=== PATIENT | female | born 1945 | race Caucasian/White ===

== ENCOUNTER 2017-06-23 11:57 | Emergency (ER) | payer OTHER ==
[2017-06-23 12:04] VITALS: BP 164/84; TEMP 97.9; BMI 25.0
--- NOTE | 2017-06-23 12:29 | ED.PDOC ---
General ED Provider: Dr. BRIAN GÓMEZ Chief Complaint: Bite Stated Complaint: Noticed a swollen, erythematous, tender area on right inner thigh yesterday. No other symptoms. Time Seen by Physician: 12:25 Mode of Arrival: Walk-In Information Source: Patient Exam Limitations: No limitations Primary Care Provider: FAISAL ALVARADO Nursing and Triage Documentation Reviewed and Agree: Yes Skin Complaint Exam - Skin/Soft Tissue Complaint/Exam Onset/Duration: 1 day Symptoms Are: Still present Timing: Constant Initial Severity: Moderate Current Severity: Moderate Location: right inner thigh Character: Reports: Redness, Swelling, Painful Aggravating: Reports: Touch Alleviating: Reports: None Related Surgical History: Reports: None Recent Exposure to Others w/Similar Symptoms: No Skin Findings: Present: Erythema, Other (central raised area without palpable FB ) Joint Tenderness Present: No Differential Diagnoses: Cellulitis Review of Systems - Review Of Systems Constitutional: Reports: No symptoms Respiratory: Reports: No symptoms Cardiac: Reports: No symptoms Musculoskeletal: Reports: No symptoms Skin: Reports: Other (erythema and tenderness at chief complaint site) Neurological: Reports: No symptoms All Other Systems: Reviewed and Negative Past Medical History - Past Medical History Previously Healthy: Yes Endocrine: Reports: Dyslipidemia Cardiovascular: Reports: None, Hypertension Respiratory: Reports: None Hematological: Reports: None Gastrointestinal: Reports: None, Diverticulitis Genitourinary: Reports: None Neuro/Psych: Reports: None Musculoskeletal: Reports: None Cancer: Reports: None Last Menstrual Period: N/A - Surgical History General Surgical History: Reports: Cholecystectomy - Family History Family History: Reports: None - Social History Smoking Status: Never smoker Hx Substance Use: No Alcohol Screening: None Lives: Alone - Immunizations Tetanus Shot up to Date: No Influenza Vaccine within 12 Months: No Pneumococcal Vaccine up to Date: No Physical Exam - Physical Exam Appearance: Well-appearing, No pain distress, Well-nourished Respiratory: Airway patent, Breath sounds clear, Breath sounds equal, Respirations nonlabored Cardiovascular: RRR, Pulses normal, No rub, No murmur Skin: Warm (local erythema approx 4 cm diam, with central raised area approx 1 cm on right inner thigh closer to knee than hip. No palpable FB. No streaking.) , Dry Neurological: Sensation intact, Motor intact, Reflexes intact, Cranial nerves intact, Alert, Oriented Psychiatric: Affect appropriate, Mood appropriate Critical Care Note - Critical Care Note Total Time (mins): 0 Course - Course Vital Signs: Temp Pulse Resp BP Pulse Ox 06/23/17 11:57 97.9 F 52 L 20 164/84 H 97 Departure - Departure Time of Disposition: 12:36 Disposition: HOME SELF-CARE Discharge Problem: Cellulitis of right thigh Instructions: Cellulitis (ED) Condition: Good Pt referred to PMD for follow-up: No (see PCP if no better in 3 days) Allergies/Adverse Reactions: Allergies codeine Adverse Reaction (Verified 06/23/17 12:03) Latex, Natural Rubber Adverse Reaction (Verified 06/23/17 12:03) Home Medications: Ambulatory Orders Citalopram Hydrobromide [Citalopram HBr] 40 mg PO DAILY 03/22/15 Lorazepam [Ativan] 1 - 2 mg PO BEDTIME 03/22/15 Propranolol HCl [Inderal LA] 160 mg PO DAILY 03/22/15 Simvastatin [Zocor] 40 mg PO BEDTIME 03/22/15 Sumatriptan Succinate [Imitrex] 50 mg PO PRN PRN 03/22/15 Amoxicillin/Potassium Clav [Augmentin 875-125 mg Tab] 1 tab PO Q12HR #20 tablet 06/23/17 Loratadine [Claritin] 10 mg PO DAILY 06/23/17
== END 2017-06-23 12:43 | disposition home or self-care (01) ==
LOC: ED 11:57
DX: L03.115 Cellulitis of right lower limb (principal)
CPT/HCPCS: 99282

== ENCOUNTER 2018-12-19 05:45 | Emergency (ER) | payer OTHER ==
[2018-12-19 05:57] VITALS: BP 178/109; TEMP 97.4; BMI 25.6
[2018-12-19] MEDS ORDERED: MORPHINE 2 MG/ML SYRINGE IVP STA (06:18)
[2018-12-19] MEDS ORDERED: ZOFRAN 4 MG/2 ML IVP STA (06:19)
--- NOTE | 2018-12-19 06:23 | ED.PDOC ---
General Stated Complaint: my back hurts every 12 sec Time Seen by Physician: 05:50 Mode of Arrival: Walk-In Information Source: Patient Exam Limitations: No limitations Nursing and Triage Documentation Reviewed and Agree: Yes Does patient meet sepsis criteria?: No System Inflammatory Response Syndrome: Not Applicable <LORETTADoloresEZRA MENDIOLA Last Filed: 12/19/18 06:28> <MARIAGONSALOEZRA Last Filed: 12/19/18 10:23> ED Provider: Dr. EZRA PEREYRA Chief Complaint: Back Pain Primary Care Provider: FAISAL ALVARADO Sepsis Protocol: For patient's 13 years and over: Temp is 96.8 and below OR 101 and greater Pulse >90 BPM Resp >20/minute Acutely Altered Mental Status Are patient's symptoms suggestive of a new infection, such as: -Pneumonia -Skin, Soft Tissue -Endocarditis -UTI -Bone, Joint Infection -Implantable Device -Acute Abdominal Infection -Wound Infection -Meningitis -Blood Stream Catheter Infection -Unknown Musculoskeletal Complaint Exam - Back Pain Complaint/Exam Mechanism of Injury: Reports: No known trauma Onset/Duration: several hours Symptoms Are: Resolved Timing: Intermittent Episodes Lasting: Seconds Initial Severity: Mild Current Severity: Moderate Location: Reports: Discrete Character: Reports: Sharp, Spasmodic, Burning Aggravating: Reports: None Alleviating: Reports: None Associated Signs and Symptoms: Denies: Swelling, Redness, Bruising, Fever, Weakness, Numbness, Tingling, Abdominal pain, Flank pain, Bladder incontinence, Bowel incontinence, Weight loss, Pain with weight bearing Epidural Abcess Risk Factors: Reports: None Focal Tenderness: No Paraspinal Muscle Tenderness: No Paraspinal Muscle Spasm: No Scoliosis: No Lordosis: No Kyphosis: No SLR Test: Right Negative, Left Negative Hip Motion Testing Pain: Right Negative, Left Negative Focal Weakness: Present: None Focal Sensory Loss: Present: None Gait: Present: Normal Differential Diagnoses: Herniated Disk, Strain, Sprain <LORETTAKRISTIEZRA Last Filed: 12/19/18 06:28> Review of Systems - Review Of Systems Constitutional: Reports: No symptoms Eyes: Reports: No symptoms Ears, Nose, Mouth, Throat: Reports: No symptoms Respiratory: Reports: No symptoms Cardiac: Reports: No symptoms GI: Reports: No symptoms : Reports: No symptoms Musculoskeletal: Reports: Back pain Skin: Reports: No symptoms Neurological: Reports: No symptoms Endocrine: Reports: No symptoms Hematologic/Lymphatic: Reports: No symptoms All Other Systems: Reviewed and Negative <EZRA POLLARD Last Filed: 12/19/18 06:28> Past Medical History - Past Medical History Previously Healthy: Yes Endocrine: Reports: Dyslipidemia Cardiovascular: Reports: None, Hypertension Respiratory: Reports: None Hematological: Reports: None Gastrointestinal: Reports: None, Diverticulitis Genitourinary: Reports: None Neuro/Psych: Reports: None Musculoskeletal: Reports: None Cancer: Reports: None Last Menstrual Period: UNKNOWN - Surgical History General Surgical History: Reports: Cholecystectomy - Family History Family History: Reports: None - Social History Smoking Status: Never smoker Hx Substance Use: No Alcohol Screening: None - Immunizations Tetanus Shot up to Date: Yes (UNKNOWN) Influenza Vaccine within 12 Months: No Pneumococcal Vaccine up to Date: No <EZRA POLLARD Last Filed: 12/19/18 06:28> Physical Exam - Physical Exam Appearance: Well-appearing Pain Distress: Moderate Eyes: JENNYFER, EOMI, Conjunctiva clear ENT: Ears normal, Nose normal, Oropharynx normal Neck: Supple Respiratory: Airway patent, Breath sounds clear, Breath sounds equal, Respirations nonlabored Cardiovascular: RRR, Pulses normal, No rub, No murmur GI/: Soft, Nontender, No masses, Bowel sounds normal, No Organomegaly Musculoskeletal: Normal strength, ROM intact, No edema, No calf tenderness Skin: Warm, Dry, Normal color Neurological: Sensation intact, Motor intact, Reflexes intact, Cranial nerves intact, Alert, Oriented Psychiatric: Affect appropriate, Mood appropriate <EZRA POLLARD Last Filed: 12/19/18 06:28> Procedures - Additional Procedures Additional Procedures: Other (OMT/OMM Rt upper thoracic region of muscle spasm) <EZRA PEREYRA Last Filed: 12/19/18 10:23> Physician Notification - Case Discussed Physician Notified: dr pereyra Time of Notification: 07:00 <EZRA POLLARD Last Filed: 12/19/18 06:28> Critical Care Note - Critical Care Note Total Time (mins): 60 <EZRA PEREYRA Last Filed: 12/19/18 10:23> Course - Course Hematology/Chemistry: 12/19/18 06:30 12/19/18 06:30 <EZRA PEREYRA Filed: 12/19/18 10:23> - Course Orders, Labs, Meds: Lab Review 12/19/18 12/19/18 12/19/18 06:30 06:30 06:30 WBC 5.35 RBC 4.00 L Hgb 12.9 Hct 37.5 MCV 93.8 MCH 32.3 H MCHC 34.4 RDW Coeff of Dimas 12.8 Plt Count 151 Immature Gran % (Auto) 0.4 Neut % (Auto) 56.7 Lymph % (Auto) 34.0 [place] % (Auto) 6.2 Eos % (Auto) 2.1 Baso % (Auto) 0.6 Immature Gran # (Auto) 0.0 Neut # (Auto) 3.0 Lymph # (Auto) 1.8 [place] # (Auto) 0.3 L Eos # (Auto) 0.1 Baso # (Auto) 0.0 Sodium 140.4 Potassium 3.84 Chloride 108.2 H Carbon Dioxide 23.4 Anion Gap 12.64 BUN 9.9 Creatinine 0.53 L Estimated GFR (MDRD) 113.00 BUN/Creatinine Ratio 18.67 Glucose 101.7 Calcium 9.21 Total Bilirubin 0.56 AST 22.3 ALT 14.8 Alkaline Phosphatase 66.4 Total Creatine Kinase 30.1 Troponin I < 0.012 Total Protein 6.99 Albumin 4.10 Globulin 2.89 Albumin/Globulin Ratio 1.41 Amylase 67.6 Lipase 75.4 Orders Category Date Time Status EKG-(ED ONLY) Stat CARDIO 12/19/18 06:17 Completed NPO REMINDER: IMAGING ONCE CARE 12/19/18 06:20 Completed ED LOGGING SUPERVISOR APPLIED .ONCE EMERGENCY 12/19/18 06:17 Active ED IV/MEDIPORT/POWERPORT .ONCE EMERGENCY 12/19/18 06:17 Active AMYLASE Stat LAB 12/19/18 06:30 Completed CBC W/ AUTO DIFF Stat LAB 12/19/18 06:30 Completed COMPREHENSIVE METABOLIC PANEL Stat LAB 12/19/18 06:30 Completed CREATINE KINASE Stat LAB 12/19/18 06:30 Completed LIPASE Stat LAB 12/19/18 06:30 Completed TROPONIN I Stat LAB 12/19/18 06:30 Completed URINALYSIS C & S IF INDICATED Stat LAB 12/19/18 06:17 Ordered 0.9 % Sodium Chloride [Saline Flush] MEDS 12/19/18 06:17 Active 1 syr IVF PRN PRN Ketorolac Tromethamine [Toradol] MEDS 12/19/18 08:19 Discontinued 30 mg IVP ONCE STA Morphine Sulfate [Morphine 2 mg/ml Syringe] MEDS 12/19/18 06:18 Discontinued 2 mg IVP ONCE STA Ondansetron HCl/Pf [Zofran 4 mg/2 ml] MEDS 12/19/18 06:19 Discontinued 4 [address] IVP ONCE STA CT ABDOMEN/PELVIS W CONTRAST Stat RADS 12/19/18 06:[address] CHEST PE PROTOCOL Stat RADS 12/19/18 06:19 Completed Medications Generic Name Dose Route Start Last Admin Trade Name Freq PRN Reason Stop Dose Admin Sodium Chloride 1 syr 12/19/18 06:17 12/19/18 06:37 Saline Flush IVF 1 syr PRN PRN Administration To flush IV Discontinued Medications Generic Name Dose Route Start Last Admin Trade Name Freq PRN Reason Stop Dose Admin Ketorolac Tromethamine 30 mg 12/19/18 08:19 12/19/18 08:27 Toradol IVP 12/19/18 08:20 30 mg ONCE STA Administration Morphine Sulfate 2 mg 12/19/18 06:18 12/19/18 06:37 Morphine 2 Mg/Ml Syringe IVP 12/19/18 06:19 2 mg ONCE STA Administration Ondansetron HCl 4 mg 12/19/18 06:19 12/19/18 06:37 Zofran 4 Mg/2 Ml IVP 12/19/18 06:20 4 mg ONCE STA Administration Vital Signs: Temp Pulse Resp BP Pulse Ox 12/19/18 05:46 97.4 F L 58 L 16 178/109 H 98 Departure <EZRA POLLARD - Last Filed: 12/19/18 06:28> - Departure Time of Disposition: 10:10 Pt referred to PMD for follow-up: Yes IPMP verified?: No Disposition Discussed With: Patient <EZRA PEREYRA - Last Filed: 12/19/18 10:23> - Departure Disposition: HOME SELF-CARE Discharge Problem: Right-sided chest wall pain, Spasm of thoracic back muscle Instructions: Arthralgia (ED), Back Pain (ED), Muscle Spasm (ED) Condition: Good Additional Instructions: Exercise Warm moist heat to site of discomfort Meds as directed, Tramadol prn Allergies/Adverse Reactions: Allergies codeine Adverse Reaction (Verified 12/19/18 05:55) Latex, Natural Rubber Adverse Reaction (Verified 12/19/18 05:55) Home Medications: Ambulatory Orders Citalopram Hydrobromide [Citalopram HBr] 40 mg PO DAILY 03/22/15 Lorazepam [Ativan] 1 mg PO BEDTIME 03/22/15 Propranolol HCl [Inderal LA] 160 mg PO DAILY 03/22/15 Simvastatin [Zocor] 40 mg PO BEDTIME 03/22/15 Sumatriptan Succinate [Imitrex] 50 mg PO PRN PRN 03/22/15 Loratadine [Claritin] 10 mg PO DAILY 06/23/17 Butalb/Acetaminophen/Caffeine [Apenvx-Vmplsbgc-Ffgy 50-325-40] 1 each PO TID PRN 12/19/18 Gluc Bo/Chondro Bo A/Vit C/Mn [Glucosamine Chondroitin Tab] 1 each PO DAILY 05/02 Hyoscyamine Sulfate 0.125 mg SL Q4H PRN 12/19/18 Mesalamine 2 tab PO DAILY 12/19/18 Omeprazole 20 mg PO DAILY 12/19/18 Timolol Maleate 0.5% [Timoptic 0.5% Opth] 1 drop OP BID 12/19/18 Tramadol HCl 50 mg PO Q4H PRN 12/19/18 <EZRA POLLARD - Last Filed: 12/19/18 06:28> <EZRA PEREYRA - Last Filed: 12/19/18 10:23> Additional Information: 0900Evaluated patient. Lab and imaging reviewed Pos tenderness at Rt upper-mid thoracic-periscapular region. Tx with counterstrain OMM with lessening of muscle spasm and reduction of pain Toradol administered @ 0940 patient eval and totally asymptomatic of pain . (EZRA PEREYRA)
[2018-12-19] MEDS ORDERED: TORADOL IVP STA (08:19)
--- NOTE | 2018-12-19 08:43 | CT ---
EXAM: CTA CHEST (PE PROTOCOL) HISTORY: Chest pain TECHNIQUE: CTA chest with intravenous contrast. Multiplanar images were provided with 3-D reconstru ctions. 100 mL Omnipaque. COMPARISON: None FINDINGS: No pulmonary arterial filling defect. There is mild atherosclerotic disease. Prominent aortic calib er although no rubina aneurysm dilatation. Tubular ascending measured at 3.4 cm and the upper descend ing at 2.9 cm. Normal heart size. No pericardial effusion. Chronic-appearing lung changes with no vascular congestion, central interstitial edema or pleural flu id. No consolidated pneumonia or pneumothorax. There is a 3 mm noncalcified nodule in the right upp er lobe. Refer to [facility]well images. A few calcified granulomas are seen within the lungs. The bones reveal scoliosis and degenerative changes of the spine. IMPRESSION: 1. No pulmonary arterial thromboembolism. 2. No consolidated pneumonia. 3. Minimal atherosclerosis. Prominent aortic caliber without rubina aneurysmal dimensions. 4. Small 3 mm noncalcified nodule right upper lobe. The Fleischner Society pulmonary nodule recomme ndations for this finding include: No follow-up for low risk patients. Optional follow-up for high- risk patient is in 12 months. A few calcified granulomas are also noted within the lungs.
--- NOTE | 2018-12-19 08:47 | CT ---
EXAM: CT abdomen pelvis with contrast HISTORY: Abdominal pain COMPARISON: Same day CT chest with prior MRI abdomen 07/03/[address] abdomen studi es TECHNIQUE: Serial axial images of the abdomen pelvis were performed after 100 mL is of Omnipaque IV contrast was administered. These were obtained from the lung bases through the inferior pelvis. FINDINGS: The lung bases are better evaluated on same day CT chest. There is a small hiatal hernia. The liver is unremarkable. The gallbladder has been resected. The adrenal glands and kidneys are normal. The spleen demonstrates a stable round low attenuation lesion s the largest in the lateral mid spleen measures 1.5 cm which is not significantly changed since 2016 . The pancreas is unremarkable. Stomach is minimally distended. Small bowel in the the abdomen pelvis is unremarkable. There is mild thickening and questionable marie und-glass in the distal sigmoid colon as seen on image 55. With few diverticuli. The remaining colo n is unremarkable. The appendix is normal. The antrum and pelvis demonstrate no free air, free flui d or lymphadenopathy. There is reverse S-shaped scoliosis of the lumbar spine with no acute compress ion fracture or subluxation. IMPRESSION: 1. Minimal thickening of the distal sigmoid colon with questionable mild hazy ground-glass that may suggest sigmoid diverticulitis, but underlying mass cannot be excluded. 2. No change in low attenuation splenic lesions most consistent with cysts. 3. Multilevel degenerative disease and stable scoliosis.
== END 2018-12-19 10:59 | disposition home or self-care (01) ==
LOC: ED 05:45
DX: R07.89 Other chest pain (principal); M62.830 Muscle spasm of back; E78.5 Hyperlipidemia, unspecified; I10 Essential (primary) hypertension; M54.6 Pain in thoracic spine; Z87.19 Personal history of other diseases of the digestive system; Z79.899 Other long term (current) drug therapy
CPT/HCPCS: 36415; 80053; 81001; 82150; 82550; 83690; 84484; 85025; 93005; 93010; 96374; 96375; 99283

== ENCOUNTER 2019-07-27 16:43 | Inpatient (IN) ==
[2019-07-27] MEDS ORDERED: TRANDATE IVP STA (17:09)
--- NOTE | 2019-07-27 18:11 | CT ---
Exam: CT of the brain without intravenous contrast. Comparison: 03/22/2015. Reason for exam: Elevated blood pressure FINDINGS: No acute intracranial hemorrhage, mass effect, ventricular dilatation, or territorial infa rction. Parenchymal changes seen consistent with chronic microvascular disease. No depressed calvar ial fracture is seen. Impression: No acute intracranial findings. Parenchymal change consistent with chronic microvascular disease
--- NOTE | 2019-07-27 18:18 | CT ---
EXAM: CT Abdomen Pelvis Without contrast HISTORY: Abdominal pain COMPARISON: 12/19/2018 TECHNIQUE: CT Abdomen Pelvis performed Without intravenous contrast. Coronal and sagital images obta ined. FINDINGS: Clear lung bases. Normal heart size. The liver, pancreas, spleen, adrenals and kidneys are unremarkable. Prior cholecystectomy. Small/moderate hiatal hernia. No bowel obstruction. Some hyperdense content is seen within the smal l bowel. Colonic diverticulosis. Appearance of bowel wall thickening of the distal descending and s igmoid colon with mild surrounding fat stranding and left pericolic gutter fluid. Appendix is not vi sualized. Moderate colonic fecal retention. No adenopathy. Uterus and adnexa are within normal limit s. Normal diameter aorta. Mild pelvic ascites. No abnormal fluid collection, free air. No acute osseo us abnormality. Lumbosacral spondylosis.4 IMPRESSION: 1. Probable colonic wall thickening of the descending with mild surrounding inflammation, most consi stent with colitis. 2. Mild pelvic ascites. 3. Mild colonic diverticulosis. Moderate colonic fecal retention. 4. Small/moderate hiatal hernia.
[2019-07-27] MEDS ORDERED: ZOFRAN 4 MG/2 ML IVP STA (18:21)
--- NOTE | 2019-07-27 18:27 | ED.PDOC ---
General ED Provider: Dr. EZRA POLLARD Chief Complaint: Hypertension Stated Complaint: jose been hurting and my bp has been up Time Seen by Physician: 18:27 Mode of Arrival: Wheelchair Information Source: Patient Primary Care Provider: FAISAL ALVARADO Nursing and Triage Documentation Reviewed and Agree: Yes Does patient meet sepsis criteria?: No System Inflammatory Response Syndrome: Not Applicable Sepsis Protocol: For patient's 13 years and over: Temp is 96.8 and below OR 101 and greater Pulse >90 BPM Resp >20/minute Acutely Altered Mental Status Are patient's symptoms suggestive of a new infection, such as: -Pneumonia -Skin, Soft Tissue -Endocarditis -UTI -Bone, Joint Infection -Implantable Device -Acute Abdominal Infection -Wound Infection -Meningitis -Blood Stream Catheter Infection -Unknown GI Complaint Exam Abdominal Pain Complaint/Exam Onset: Gradual Duration: 4-5 hart Symptoms Are: Still present Timing: Intermittent Initial Severity: Mild Current Severity: Moderate Location of Pain: Diffuse Character: Reports Dull and Throbbing Aggravating: Reports None Alleviating: Reports None Associated Signs and Symptoms: Reports Nausea Patient Rh Status: Unknown Review of Systems Review Of Systems Constitutional: Reports No symptoms Eyes: Reports No symptoms Ears, Nose, Mouth, Throat: Reports No symptoms Respiratory: Reports No symptoms Cardiac: Reports No symptoms GI: Reports Abdominal pain, Diarrhea and Nausea : Reports No symptoms Musculoskeletal: Reports No symptoms Skin: Reports No symptoms Neurological: Reports No symptoms Endocrine: Reports No symptoms Hematologic/Lymphatic: Reports No symptoms All Other Systems: Reviewed and Negative [facility] Social History Do you feel safe at home: Yes Smoking and tobacco status: Never smoker Substance use type: does not use History of recent travel: No Physical Exam Physical Exam Appearance: Well-appearing Ill-appearing: Mild Eyes: JENNYFER, EOMI and Conjunctiva clear ENT: Ears normal Neck: Supple Respiratory: Airway patent Cardiovascular: RRR GI/: Soft and Nontender Musculoskeletal: Normal strength Skin: Warm Neurological: Sensation intact Psychiatric: Affect appropriate Interpretation Radiology Interpretation Radiology Interpretation By: Radiologist Radiology Results: Positive Exam Interpreted: CT Scan EKG Interpretation Time of EKG #1: 18:26 Rate: Normal Rhythm: Sinus Ectopy: None [place]: NL ST Segment: Normal Interpretation: nsr Physician Notification Case Discussed Physician Notified: dr alvarado Time of Notification: 18:27 Critical Care Note Critical Care Note Total Time (mins): 0 Course Course Hematology/Chemistry: 07/27/19 17:18 07/27/19 17:18 Orders, Labs, Meds: Lab Review 07/27/19 07/27/19 07/27/19 17:18 17:18 17:45 WBC 6.33 RBC 4.16 L Hgb 13.6 Hct 38.6 MCV 92.8 MCH 32.7 H MCHC 35.2 RDW Coeff of Dimas 12.4 Plt Count 197 Immature Gran % (Auto) 0.2 Neut % (Auto) 61.2 Lymph % (Auto) 29.1 [place] % (Auto) 7.6 Eos % (Auto) 1.4 Baso % (Auto) 0.5 Immature Gran # (Auto) 0.0 Neut # (Auto) 3.9 Lymph # (Auto) 1.8 [place] # (Auto) 0.5 Eos # (Auto) 0.1 Baso # (Auto) 0.0 Sodium 134.9 Potassium 3.51 Chloride 101.5 Carbon Dioxide 27.3 Anion Gap 9.61 BUN 8.1 Creatinine 0.68 Estimated GFR (MDRD) 85.00 BUN/Creatinine Ratio 11.91 Glucose 108.6 H Calcium 9.64 Total Bilirubin 0.56 AST 29.8 ALT 15.0 Alkaline Phosphatase 84.0 Total Creatine Kinase 30.8 Troponin I < 0.012 Total Protein 7.76 Albumin 4.38 Globulin 3.38 Albumin/Globulin Ratio 1.29 Urine Color Yellow Urine Clarity Clear Urine pH 6.0 Ur Specific [place] 1.015 Urine Protein Negative Urine Glucose (UA) Negative Urine Ketones Negative Urine Blood Negative Urine Nitrite Negative Urine Bilirubin Negative Urine Urobilinogen 0.2 Ur Leukocyte Esterase Negative Orders Category Date Time Status EKG-(ED ONLY) Stat CARDIO 07/27/19 17:09 Completed ED LEAD CARGO MOVER APPLIED .ONCE EMERGENCY 07/27/19 17:09 Active ED IV/MEDIPORT/POWERPORT .ONCE EMERGENCY 07/27/19 17:09 Active CBC W/ AUTO DIFF Stat LAB 07/27/19 17:18 Completed COMPREHENSIVE METABOLIC PANEL Stat LAB 07/27/19 17:18 Completed CREATINE KINASE Stat LAB 07/27/19 17:18 Completed TROPONIN I Stat LAB 07/27/19 17:18 Completed URINALYSIS C & S IF INDICATED Stat LAB 07/27/19 17:45 Completed 0.9 % Sodium Chloride [Saline Flush] MEDS 07/27/19 17:09 Active 1 syr IVF PRN PRN Labetalol HCl [Trandate] MEDS 07/27/19 17:09 Discontinued 20 mg IVP ONCE STA Ondansetron HCl/Pf [Zofran 4 mg/2 ml] MEDS 07/27/19 18:21 Stat 4 mg IVP ONCE STA CT ABDOMEN/PELVIS WO CONTRAST Stat RADS 07/27/19 17:[address] HEAD W/O CONTRAST Stat RADS 07/27/19 17:11 Completed Medications Generic Name Dose Route Start Last Admin Trade Name Freq PRN Reason Stop Dose Admin Sodium Chloride 1 syr 07/27/19 17:09 07/27/19 17:50 Saline Flush IVF 1 syr PRN PRN Administration To flush IV Discontinued Medications Generic Name Dose Route Start Last Admin Trade Name Freq PRN Reason Stop Dose Admin Labetalol HCl 20 mg 07/27/19 17:09 07/27/19 17:56 Trandate IVP 07/27/19 17:10 20 mg ONCE STA Administration Ondansetron HCl 4 mg 07/27/19 18:21 Zofran 4 Mg/2 Ml IVP 07/27/19 18:22 ONCE STA Vital Signs: Temp Pulse Resp BP Pulse Ox 07/27/19 16:44 98 F 65 16 209/105 H 96 Discharge Plan Discharge Patient Disposition: ADMITTED INPATIENT Discharge Problem: Acute diverticulitis Prescriptions: No Action propranolol [Inderal LA] 160 MG capsule,extended release 24 hr 160 mg PO DAILY RF: 0 citalopram 40 MG tablet 40 mg PO DAILY RF: 0 sumatriptan succinate [Imitrex] 50 MG tablet 50 mg PO PRN PRN (Reason: Analgesia) RF: 0 simvastatin 40 MG tablet 40 mg PO BEDTIME RF: 0 lorazepam 1 MG tablet 1 mg PO BEDTIME RF: 0 tramadol 50 MG tablet 50 mg PO Q4H PRN (Reason: Pain) RF: 0 godkrdvbti-flkfdfkewluqd-zysj 1 EACH tablet 1 ea PO TID PRN (Reason: Pain) RF: 0 hyoscyamine sulfate 0.125 MG tablet, sublingual 0.125 mg sublingual Q4H PRN (Reason: Pain) RF: 0 omeprazole 20 MG capsule,delayed release(DR/EC) 20 mg PO DAILY RF: 0 timolol maleate 1 DROP drops 1 drp BOTHEYES BID RF: 0 mghotnhsxey-ydrdpgusa-sle C-Mn 1 EACH tablet 1 ea PO DAILY RF: 0 mesalamine 1.2 GM tablet,delayed release (DR/EC) 2 tab PO DAILY RF: 0 loratadine 10 MG tablet 10 mg PO DAILY RF: 0 losartan-hydrochlorothiazide 50-12.5 mg Tablet 1 tab PO DAILY RF: 0 cholecalciferol (vitamin D3) [Vitamin D3] 1,000 unit Capsule 1,000 unit PO DAILY RF: 0 tizanidine 2 mg Capsule 2 mg PO BEDTIME RF: 0 ED Provider: EZRA POLLARD Condition: Good
[2019-07-27] MEDS ORDERED: HYOSCYAMINE SULFATE 0.125 MG SL PRN (18:35)
[2019-07-27] MEDS ORDERED: TRANDATE IVP PRN (18:38)
[2019-07-27] MEDS ORDERED: NUBAIN IVP STA (19:16)
[2019-07-27] MEDS: MORPHINE 2 MG/ML SYRINGE IVP PRN (19:31)
[2019-07-27 21:46] VITALS: BMI 23.4
[2019-07-27] MEDS: ZOFRAN 4 MG/2 ML IVP PRN (22:34)
[2019-07-27] MEDS: ULTRAM PO PRN (22:34)
[2019-07-27] MEDS: ATIVAN PO SCH (22:34)
[2019-07-27] MEDS: FLAGYL 500 MG/100 ML 500 MG/100 ML BAG IV SCH (22:43)
[2019-07-27] MEDS: D5%-NS-KCL 20 MEQ/L IV SOL 1,000 ML IV SCH (22:44)
[2019-07-28] MEDS: TIMOPTIC 0.5% OPTH EACHEYE SCH ×3 (02:24→20:38)
[2019-07-28] MEDS: ZANAFLEX PO SCH ×2 (02:25→20:38)
[2019-07-28] MEDS: ZOCOR PO SCH ×2 (02:25→20:38)
[2019-07-28] MEDS: ULTRAM PO PRN ×2 (04:06→18:22)
[2019-07-28] MEDS: FLAGYL 500 MG/100 ML 500 MG/100 ML BAG IV SCH ×3 (04:31→20:37)
[2019-07-28] MEDS: PRILOSEC PO SCH (06:19)
[2019-07-28] MEDS ORDERED: ATIVAN IVP PRN (08:37)
[2019-07-28] MEDS ORDERED: PROPRANOLOL 160 MG PO SCH ×2 (09:00→21:00)
--- NOTE | 2019-07-28 09:04 | PCM.PROG ---
Attending Provider: ATTENDING PROVIDER: [facility] patient is seen with Gerri Dillon, Nurse Practitioner. DATE OF SERVICE: 07/28/19 SUBJECTIVE: This 74 year old /WHITE F was hospitalized 07/27/19. The patient is complaining of headache, vomiting and diarrhea. Her blood pressure has been elevated. REVIEW OF SYSTEMS: CONSTITUTIONAL: No night sweats. No fatigue, malaise, lethargy. No fever or chills. HEENT: Eyes: No visual changes. No eye pain. No eye discharge. ENT: No runny nose. No epistaxis. No sinus pain. No odynophagia. No congestion. RESPIRATORY: No cough, no congestion. No hemoptysis. No shortness of breath. CARDIOVASCULAR: No angina symptoms. No CHF symptoms. No atypical chest pain for CAD. No palpitations. No orthopnea.. GASTROINTESTINAL: No abdominal pain. Vomiting. Diarrhea. No hematemesis. No hematochezia. GENITOURINARY: No urgency. No frequency. No dysuria. No hematuria. No obstructive symptoms. No discharge. No pain. No significant abnormal bleeding. MUSCULOSKELETAL: No musculoskeletal pain; no joint swelling. NEUROLOGICAL: Awake, alert, oriented to time, place and person. Headache. No neck pain. No syncope. No seizures. No dizziness. PSYCHIATRIC: Not anxious. No depression. No suicidal thoughts. No homicidal thoughts. SKIN: No rash. No lesions. No wounds. ENDOCRINE: No unexplained weight loss. No weight gain. HEMATOLOGIC/LYMPHATIC: No anemia. No purpura. No petechiae. No prolonged or excessive bleeding. No palpable lymph nodes. PHYSICAL EXAMINATION: GENERAL: The patient is awake, alert and oriented, sitting in bed in no distress. VITAL SIGNS: Temperature 97.7 F, Pulse 65, Respiratory Rate 18, BP 144/87, Pulse Ox 100% HEENT: Head normocephalic, atraumatic. Eyes: Extraocular muscles are intact. Pupils are equal, round and reactive to light and accommodation. Ears: No lesions. Nose appeared normal. Throat: No exudate or erythema. NECK: Supple. No JVD, no carotid bruit. No lymphadenopathy or thyromegaly. LUNGS: Diminished breath sounds. Clear to auscultation. Percussion note normal. Chest symmetrical. HEART: S1, S2, no S3. No murmurs. No cyanosis or clubbing. No ascites. Pulses: Dorsalis pedis and posterior tibial pulses +1 to +2 both sides. ABDOMEN: Soft. Non-tender. Bowel sounds active. No CVA tenderness. No mass felt. EXTREMITIES: No edema. Full range of motion of all extremities, equal. NEUROLOGIC: No focal deficit. Cranial nerves II through XII are grossly intact. No headache, no double vision or headache. SKIN: Not dry. Intact. Turgor-normal. LYMPHATIC: No palpable lymph nodes/no lymphedema. MUSCULOSKELETAL: Normal joints with no swelling. Muscle tone is normal. LAB REVIEW: 07/28/19 04:10 07/28/19 04:10 07/28/19 04:10: Sodium 136.3, Potassium 3.65, Chloride 101.6, Carbon Dioxide 26.4, Anion Gap 11.95, BUN 7.3, Creatinine 0.54 L, Estimated GFR (MDRD) 111.00, BUN/Creatinine Ratio 13.51, Glucose 135.4 H, Calcium 9.41, Total Bilirubin 0.46, AST 26.3, ALT 15.3, Alkaline Phosphatase 72.3, Total Protein 7.72, Albumin 4.39, Globulin 3.33, Albumin/Globulin Ratio 1.31 07/28/19 04:10: WBC 4.94, RBC 4.04 L, Hgb 13.0, Hct 37.2, MCV 92.1, MCH 32.2 H, MCHC 34.9, RDW Coeff of Dim[place] 12.3, Plt Count 185, Immature Gran % (Auto) 0.2, Neut % (Auto) 56.9, Lymph % (Auto) 35.6, [place] % (Auto) 6.3, Eos % (Auto) 0.6, Baso % (Auto) 0.4, Immature Gran # (Auto) 0.0, Neut # (Auto) 2.8, Lymph # (Auto) 1.8, [place] # (Auto) 0.3 L, Eos # (Auto) 0.0, Baso # (Auto) 0.0 07/27/19 17:45: Urine Color Yellow, Urine Clarity Clear, Urine pH 6.0, Ur Specific [place] 1.015, Urine Protein Negative, Urine Glucose (UA) Negative, Urine Ketones Negative, Urine Blood Negative, Urine Nitrite Negative, Urine Bilirubin Negative, Urine Urobilinogen 0.2, Ur Leukocyte Esterase Negative 07/27/19 17:18: Sodium 134.9, Potassium 3.51, Chloride 101.5, Carbon Dioxide 27.3, Anion Gap 9.61, BUN 8.1, Creatinine 0.68, Estimated GFR (MDRD) 85.00, BUN/Creatinine Ratio 11.91, Glucose 108.6 H, Calcium 9.64, Total Bilirubin 0.56, AST 29.8, ALT 15.0, Alkaline Phosphatase 84.0, Total Creatine Kinase 30.8, Troponin I < 0.012, Total Protein 7.76, Albumin 4.38, Globulin 3.38, Albumin/Globulin Ratio 1.29 07/27/19 17:18: WBC 6.33, RBC 4.16 L, Hgb 13.6, Hct 38.6, MCV 92.8, MCH 32.7 H, MCHC 35.2, RDW Coeff of [place] 12.4, Plt Count 197, Immature Gran % (Auto) 0.2, Neut % (Auto) 61.2, Lymph % (Auto) 29.1, [place] % (Auto) 7.6, Eos % (Auto) 1.4, Baso % (Auto) 0.5, Immature Gran # (Auto) 0.0, Neut # (Auto) 3.9, Lymph # (Auto) 1.8, [place] # (Auto) 0.5, Eos # (Auto) 0.1, Baso # (Auto) 0.0 ASSESSMENT: Please see below. 1. Acute diverticulitis 2. Dehydration 3. Vomiting 4. Headache 5. Diarrhea. PLAN: 1. Place patient in acute care. 2. Zofran 4mg Q 4 hours IV PRN 3. Phenergan 12.5mg Q 8 hours IV 4. Lamotil 2.5mg TID PRN 5. Decrease fluids to 75cc 6. Ativan 0.5mg IV PRN Plan and coordination of the patient's care discussed in the presence of Nuclear Operations Specialist and nurse. SCRIBED BY: Regis MEZAist scribed while in presence of service performed by Dr. Alvarado/Gerri Dillon APRN on 07/28/19 ([id number])
[2019-07-28] MEDS ORDERED: PHENERGAN 25 MG/ML VIAL ONE (09:40)
[2019-07-28] MEDS: ZOFRAN 4 MG/2 ML IVP PRN (09:47)
[2019-07-28] MEDS: PHENERGAN 25 MG/ML VIAL 12.5 MG in SODIUM CHLORIDE 50 ML IV PRN (09:48)
[2019-07-28] MEDS: MORPHINE 2 MG/ML SYRINGE IVP PRN ×2 (09:53→15:42)
[2019-07-28] MEDS: CELEXA PO SCH (10:44)
[2019-07-28] MEDS: HYZAAR 50-12.5 MG TAB PO SCH (10:44)
[2019-07-28] MEDS: LOVENOX SUBCUT SCH (10:47)
[2019-07-28] MEDS: FIORICET PO PRN (10:56)
[2019-07-28] MEDS: D5%-NS-KCL 20 MEQ/L IV SOL 1,000 ML IV SCH ×3 (10:58→23:21)
[2019-07-28] MEDS: MESALAMINE PO SCH (11:03)
[2019-07-28] MEDS: LOMOTIL PO PRN (17:14)
[2019-07-28] MEDS: ATIVAN PO SCH (20:38)
[2019-07-28] MEDS ORDERED: LEVAQUIN 500 MG/100 ML D5W 500 MG/100 ML BAG IV SCH (21:00)
[2019-07-28] MEDS: LEVAQUIN 250 MG/50 ML D5W 250 MG/50 ML BAG IV SCH (21:56)
[2019-07-28] MEDS ORDERED: INDERAL PO SCH (22:00)
[2019-07-29] MEDS: PRILOSEC PO SCH (05:40)
[2019-07-29] MEDS: FLAGYL 500 MG/100 ML 500 MG/100 ML BAG IV SCH ×3 (05:40→21:32)
[2019-07-29] MEDS: LOVENOX SUBCUT SCH (08:49)
[2019-07-29] MEDS: TIMOPTIC 0.5% OPTH EACHEYE SCH ×2 (08:49→20:34)
--- NOTE | 2019-07-29 09:31 | PCM.PROG ---
Attending Provider: ATTENDING PROVIDER: Dr. FAISAL ALVARADO This patient is seen with Gerri Dillon, Nurse Practitioner. DATE OF SERVICE: 07/29/19 SUBJECTIVE: This 74 year old /WHITE F was hospitalized 07/28/19. The patient is feeling much better this morning. No vomiting or diarrhea through the night. Liver enzymes are elevated today. REVIEW OF SYSTEMS: CONSTITUTIONAL: No night sweats. No fatigue, malaise, lethargy. No fever or chills. Weakness. HEENT: Eyes: No visual changes. No eye pain. No eye discharge. ENT: No runny nose. No epistaxis. No sinus pain. No odynophagia. No congestion. RESPIRATORY: No cough, no congestion. No hemoptysis. No shortness of breath. CARDIOVASCULAR: No angina symptoms. No CHF symptoms. No atypical chest pain for CAD. No palpitations. No orthopnea.. GASTROINTESTINAL: No abdominal pain. Nausea. No diarrhea or constipation. No hematemesis. No hematochezia. GENITOURINARY: No urgency. No frequency. No dysuria. No hematuria. No obstr uctive symptoms. No discharge. No pain. No significant abnormal bleeding. MUSCULOSKELETAL: No musculoskeletal pain; no joint swelling. NEUROLOGICAL: Awake, alert, oriented to time, place and person. No headache. No neck pain. No syncope. No seizures. No dizziness. PSYCHIATRIC: Not anxious. No depression. No suicidal thoughts. No homicidal thoughts. SKIN: No rash. No lesions. No wounds. ENDOCRINE: No unexplained weight loss. No weight gain. HEMATOLOGIC/LYMPHATIC: No anemia. No purpura. No petechiae. No prolonged or excessive bleeding. No palpable lymph nodes. PHYSICAL EXAMINATION: GENERAL: The patient is awake, alert and oriented, lying in bed in no distress. VITAL SIGNS: Temperature 98.1 F, Pulse 62, Respiratory Rate 18, BP 113/66, Pulse Ox 99% HEENT: Head normocephalic, atraumatic. Eyes: Extraocular muscles are intact. Pupils are equal, round and reactive to light and accommodation. Ears: No lesions. Nose appeared normal. Throat: No exudate or erythema. NECK: Supple. No JVD, no carotid bruit. No lymphadenopathy or thyromegaly. LUNGS: Diminished breath sounds. Clear to auscultation. Percussion note normal. Chest symmetrical. HEART: S1, S2, no S3. No murmurs. No cyanosis or clubbing. No ascites. Pulses: Dorsalis pedis and posterior tibial pulses +1 to +2 both sides. ABDOMEN: Soft. Mild Non-tender. Bowel sounds active. No CVA tenderness. No mass felt. Mild left quadrant tenderness. EXTREMITIES: No edema. Full range of motion of all extremities, equal. NEUROLOGIC: No focal deficit. Cranial nerves II through XII are grossly intact. No headache, no double vision or headache. SKIN: Not dry. Intact. Turgor-normal. LYMPHATIC: No palpable lymph nodes/no lymphedema. MUSCULOSKELETAL: Normal joints with no swelling. Muscle tone is normal. LAB REVIEW: 07/29/19 04:15 07/29/19 04:15 07/29/19 04:15: Sodium 138.2, Potassium 3.22 L, Chloride 106.5, Carbon Dioxide 26.4, Anion Gap 8.52, BUN 6.8 L, Creatinine 0.63, Estimated GFR (MDRD) 93.00, BUN/Creatinine Ratio 10.79, Glucose 103.5, Calcium 8.58, Total Bilirubin 0.57, AST 888.7 H D, ALT 459.4 H D, Alkaline Phosphatase 82.9, Total Protein 6.18 L, Albumin 3.43 L, Globulin 2.75, Albumin/Globulin Ratio 1.24 07/29/19 04:15: WBC 3.69 L, RBC 3.40 L, Hgb 11.1 L, Hct 31.9 L, MCV 93.8, MCH 32.6 H, MCHC 34.8, RDW Coeff of Dim[place] 12.6, Plt Count 140, Immature Gran % (Auto) 0.3, Neut % (Auto) 61.8, Lymph % (Auto) 23.0, [place] % (Auto) 12.5 H, Eos % (Auto) 1.9, Baso % (Auto) 0.5, Immature Gran # (Auto) 0.0, Neut # (Auto) 2.3, Lymph # (Auto) 0.9, [place] # (Auto) 0.5, Eos # (Auto) 0.1, Baso # (Auto) 0.0 ASSESSMENT: Please see below. 1. Acute diverticulitis 2. Acute gastroenteritis 3. Elevated liver function 4. Hypokalemia PLAN: 1. Ultrasound of the liver 2. Hepatitis panel 3. Hold Zocor 4. Protonix 40mg BID 5. Discontinue IV fluids 6. 40 meq Potassium BID today Plan and coordination of the patient's care discussed in the presence of Ancillary Services Manager Therapy and nurse. SCRIBED BY: Víctor MEZA scribed while in presence of service performed by Dr. Alvarado/Gerri Dillon APRN on 07/29/19 ([id number])
--- NOTE | 2019-07-29 11:02 | US ---
EXAM: Right upper quadrant abdominal ultrasound. History: Elevated liver enzymes. Comparison: CT abdomen pelvis 07/27/2017 Technique: Multiple sonographic images through the abdomen were obtained. Color duplex Doppler was used to interrogate vascular flow. Findings: The liver is not enlarged. No focal liver lesions identified. The periportal echoes within the live r are maintained. There is antegrade flow within the main portal vein. No abdominal ascites. Statu s post cholecystectomy. Common bile duct measures 0.5 cm in caliber. The visualized pancreas demons trates no abnormality. Limited visualization of the right kidney demonstrates no evidence for hydron ephrosis. Impression: 1. No acute sonographic findings. 2. Sonographically normal liver. 3. Status post cholecystectomy
[2019-07-29] MEDS: K-DUR PO SCH ×2 (11:08→17:30)
[2019-07-29] MEDS: FIORICET PO PRN (11:09)
[2019-07-29] MEDS: INDERAL PO SCH ×3 (11:09→20:26)
[2019-07-29] MEDS: IMITREX PO PRN (11:09)
[2019-07-29] MEDS: HYZAAR 50-12.5 MG TAB PO SCH (11:10)
[2019-07-29] MEDS: PROTONIX PO SCH ×2 (11:10→17:30)
[2019-07-29] MEDS: CELEXA PO SCH (11:11)
[2019-07-29] MEDS: ULTRAM PO PRN (11:11)
[2019-07-29] MEDS: ZOFRAN 4 MG/2 ML IVP PRN ×2 (11:14→18:39)
[2019-07-29] MEDS: MESALAMINE PO SCH (11:19)
[2019-07-29] MEDS: MORPHINE 2 MG/ML SYRINGE IVP PRN (13:19)
--- NOTE | 2019-07-29 13:47 | HP ---
DATE OF SERVICE: 07/27/19 HISTORY OF PRESENT ILLNESS: 74-year-old white female who presents to the Emergency Room complaining of lower abdominal pain, elevated blood pressure and headaches. She has had nausea. PAST MEDICAL HISTORY: Recurrent diverticulitis History of C. diff Hypertension Anxiety Headaches Dyslipidemia Chronic pain GERD PAST SURGICAL HISTORY: None known REVIEW OF SYSTEMS: CONSTITUTIONAL: No night sweats. No fatigue, malaise, lethargy. No fever or chills. HEENT: Eyes: No visual changes. No eye pain. No eye discharge. ENT: No runny nose. No epistaxis. No sinus pain. No sore throat. No odynophagia. No ear pain. No congestion. RESPIRATORY: No cough, no congestion. No hemoptysis. No shortness of breath. CARDIOVASCULAR: No angina symptoms. No CHF symptoms. No atypical chest pain for CAD. No palpitations. No PND. No orthopnea. GASTROINTESTINAL: Positive for nausea, left lower abdominal pain. No vomiting. No diarrhea or constipation. No hematemesis. No hematochezia. GENITOURINARY: No urgency. No frequency. No dysuria. No hematuria. No obstructive symptoms. No discharge. No pain. No significant abnormal bleeding. MUSCULOSKELETAL: No musculoskeletal pain. No joint swelling. No arthritis. NEUROLOGICAL: Positive for headache. No neck pain. No syncope. No seizures. No dizziness. PSYCHIATRIC: Not anxious. No depression. No suicidal thoughts. No homicidal thoughts. SKIN: No rash. No lesions. No wounds. ENDOCRINE: No unexplained weight loss. No weight gain. HEMATOLOGIC/LYMPHATIC: No anemia. No purpura. No petechiae. No prolonged or excessive bleeding. No palpable lymph nodes. PERSONAL/FAMILY/SOCIAL HISTORY: She is , lives alone. Nonsmoker. No alcohol or illicit drug use. MEDICATIONS: (HOME) Inderal LA 160 mg p.o. daily Lorazepam 1 mg p.o. bedtime Imitrex 50 mg p.o. p.r.n. Simvastatin 40 mg p.o. bedtime Citalopram 40 mg p.o. daily Loratadine 10 mg p.o. daily Plrzpjfcupc-Cfpfsoepsbh-Scxumxz C one each p.o. daily Mesalamine 1.2 gm two tab p.o. daily Hyoscyamine 0.125 mg sublingual q.4h p.r.n. Tramadol 50 mg p.o. q.4h p.r.n. Omeprazole 20 mg p.o. daily Butalbital-Acetaminophen each p.o. t.i.d. p.r.n. Timolol one drop both eyes b.i.d. Losartan-Hydrochlorothiazide 50-12.5 one tab p.o. daily Cholecalciferol 1,000 unit p.o. daily Tizanidine 2 mg p.o. bedtime ALLERGIES: CODEINE, LASIX, NATURAL RUBBER PHYSICAL EXAMINATION: VITAL SIGNS: Temperature 98, heart rate 65, respirations 16, BP 209/105, pulse ox 96% on room air. HEENT: Head normocephalic, atraumatic. Eyes: Extraocular muscles are intact. Pupils are equal, round and reactive to light and accommodation. Ears: No lesions. Nose appeared normal. Throat: No exudate or erythema. NECK: Supple. No JVD, no carotid bruit. No lymphadenopathy or thyromegaly. LUNGS: Diminished breath sounds bilaterally. Clear to auscultation. Percussion note normal. Chest symmetrical. HEART: S1, S2, no S3. No murmur. No cyanosis or clubbing. No ascites. Pulses: Dorsalis pedis and posterior tibial pulses +1 to +2 bilaterally. ABDOMEN: Soft. Left lower quadrant with mild tenderness. No distention. Bowel sounds active. No CVA tenderness. No mass felt. EXTREMITIES: No edema. Full range of motion of all extremities, equal. NEUROLOGIC: No focal deficit. Cranial nerves II through XII are grossly intact. No headache, no double vision or headache. SKIN: Not dry. Intact. Turgor - normal. LYMPHATIC: No palpable lymph nodes/no lymphedema. MUSCULOSKELETAL: Normal joints with no swelling. Muscle tone is normal. LABS: White count 6.3, hemoglobin 13.6, hematocrit 38.6, platelets 197. Sodium 134, potassium 3.5, BUN 8.1, creatinine 0.68, glucose 108. CT of the abdomen and pelvis shows probable colonic wall thickening of the descending colon with mild surrounding inflammation consistent with colitis, mild pelvic ascites, mild colonic diverticulosis with moderate fecal retention, small moderate hiatal hernia. CT of the brain shows no acute findings. AST 29, ALT 15, alkaline phosphatase 84. Urine is negative. ASSESSMENT: 1. ACUTE DIVERTICULITIS 2. HYPERTENSION 3. NAUSEA/VOMITING PLAN: 1. We will admit. 2. Routine telemetry orders. 3. CBC, CMP daily. 4. Continue all home medications. 5. Levaquin 250 mg IV daily. 6. Zofran 4 mg IV q.4hr p.r.n. for nausea. 7. Phenergan 12.5 mg IV q.6hr p.r.n. for nausea. 8. Lomotil 2.5 mg t.i.d. p.r.n. 9. Normal Saline at 75 cc/hr. 10. Continue home medications. To be noted: The patient was originally admitted to [facility] and this was changed as an inpatient. TIME SPENT: More than 70 minutes. COLBYD
--- NOTE | 2019-07-29 14:18 | PN ---
DATE OF SERVICE: 07/28/19 SUBJECTIVE: The patient was seen and examined with Nurse Practitioner. The patient's diverticulitis is resolving. The patient may have just acute gastroenteritis. She needs to be treated symptomatically. The patient is afebrile. CONDITION: Improving. TIME SPENT: More than 30 minutes. Plan and coordination of the patient's care discussed in the presence of nurse. MOISES
[2019-07-29] MEDS: ZANAFLEX PO SCH (20:26)
[2019-07-29] MEDS: ATIVAN PO SCH (20:26)
[2019-07-29] MEDS: LEVAQUIN 250 MG/50 ML D5W 250 MG/50 ML BAG IV SCH (20:37)
[2019-07-30] MEDS: IMITREX PO PRN (02:23)
[2019-07-30] MEDS: PROTONIX PO SCH ×2 (05:35→17:13)
[2019-07-30] MEDS: FLAGYL 500 MG/100 ML 500 MG/100 ML BAG IV SCH ×3 (05:36→21:41)
[2019-07-30] MEDS: FIORICET PO PRN (07:33)
[2019-07-30] MEDS: MESALAMINE PO SCH ×2 (08:50→13:31)
[2019-07-30] MEDS: K-DUR PO SCH ×2 (09:04→17:13)
[2019-07-30] MEDS: CELEXA PO SCH (09:05)
[2019-07-30] MEDS: HYZAAR 50-12.5 MG TAB PO SCH (09:05)
[2019-07-30] MEDS: TIMOPTIC 0.5% OPTH EACHEYE SCH ×2 (09:05→20:47)
[2019-07-30] MEDS: INDERAL PO SCH ×3 (09:05→20:46)
[2019-07-30] MEDS: LOVENOX SUBCUT SCH (09:22)
[2019-07-30] MEDS ORDERED: HYOSCYAMINE SULFATE 0.125 MG SL PRN (09:30)
[2019-07-30] MEDS ORDERED: PHENERGAN 25 MG/ML VIAL ONE (10:03)
[2019-07-30] MEDS: LOMOTIL PO PRN (10:09)
[2019-07-30] MEDS: PHENERGAN 25 MG/ML VIAL 12.5 MG in SODIUM CHLORIDE 50 ML IV PRN (10:13)
--- NOTE | 2019-07-30 11:11 | PN ---
DATE OF SERVICE: 07/27/19 SUBJECTIVE: The patient was brought to the emergency room by the family and seen by Dr. Aguirre. She was hospitalized because of onset of left lower quadrant pain. The patient's CT scan of the abdomen showed acute diverticulitis. The patient also had hypertension, moderate which was treated with Trandate. The patient's headache also subsided. REVIEW OF SYSTEMS: CONSTITUTIONAL: No night sweats. No fatigue, malaise, lethargy. No fever or chills. HEENT: Eyes: No visual changes. No eye pain. No eye discharge. ENT: No runny nose. No epistaxis. No sinus pain. No sore throat. No odynophagia. No congestion. RESPIRATORY: No cough, no congestion. No hemoptysis. No shortness of breath. CARDIOVASCULAR: No angina symptoms. No CHF symptoms. No atypical chest pain for CAD. No palpitations. No PND. No orthopnea. GASTROINTESTINAL: No abdominal pain. No nausea or vomiting. No diarrhea or constipation. No hematemesis. No hematochezia. GENITOURINARY: No urgency. No frequency. No dysuria. No hematuria. No obstructive symptoms. No discharge. No pain. No significant abnormal bleeding. MUSCULOSKELETAL: No musculoskeletal pain; no joint swelling. NEUROLOGICAL: No headache. No neck pain. No syncope. No seizures. No dizziness. PSYCHIATRIC: Not anxious. No depression. No suicidal thoughts. No homicidal thoughts. SKIN: No rash. No lesions. No wounds. ENDOCRINE: No unexplained weight loss. No weight gain. HEMATOLOGIC/LYMPHATIC: No anemia. No purpura. No petechiae. No prolonged or excessive bleeding. No palpable lymph nodes. PHYSICAL EXAMINATION: HEENT: Head normocephalic, atraumatic. Eyes: Extraocular muscles are intact. Pupils are equal, round and reactive to light and accommodation. Ears: No lesions. Nose appeared normal. Throat: No exudate or erythema. NECK: Supple. No JVD, no carotid bruit. No lymphadenopathy or thyromegaly. LUNGS: Clear to auscultation. Percussion note normal. Chest symmetrical. HEART: S1, S2, no S3. No murmurs. No cyanosis or clubbing. No ascites. Pulses: Dorsalis pedis and posterior tibial pulses +1 to +2 bilaterally. ABDOMEN: Soft. Left lower quadrant tenderness. Bowel sounds active. No CVA tenderness. No mass felt. EXTREMITIES: No edema. Full range of motion of all extremities, equal. NEUROLOGIC: No focal deficit. Cranial nerves II through XII are grossly intact. No headache, no double vision or headache. SKIN: Not dry. Intact. Turgor - normal. LYMPHATIC: No palpable lymph nodes/no lymphedema. MUSCULOSKELETAL: Normal joints with no swelling. Muscle tone is normal. PLAN: 1. The patient is going to be in the hospital with IV fluids and IV antibiotics 2. Diet for the diverticulitis discussed with the patient. TIME SPENT: More than 30 minutes. Plan and coordination of the patient's care discussed in the presence of nurse. MOISES
[2019-07-30] MEDS: ZANAFLEX PO SCH (20:41)
[2019-07-30] MEDS: LEVAQUIN 250 MG/50 ML D5W 250 MG/50 ML BAG IV SCH (20:41)
[2019-07-30] MEDS: ATIVAN PO SCH (20:41)
[2019-07-31] MEDS: FLAGYL 500 MG/100 ML 500 MG/100 ML BAG IV SCH ×3 (04:57→20:03)
[2019-07-31] MEDS: ULTRAM PO PRN (05:35)
[2019-07-31] MEDS: FIORICET PO PRN ×2 (05:35→14:13)
[2019-07-31] MEDS: PROTONIX PO SCH ×2 (05:53→17:08)
[2019-07-31] MEDS: K-DUR PO SCH ×2 (08:36→17:08)
[2019-07-31] MEDS: MESALAMINE PO SCH (08:36)
[2019-07-31] MEDS: TIMOPTIC 0.5% OPTH EACHEYE SCH ×2 (08:37→20:05)
[2019-07-31] MEDS: HYZAAR 50-12.5 MG TAB PO SCH (08:37)
[2019-07-31] MEDS: CELEXA PO SCH (08:37)
[2019-07-31] MEDS: INDERAL PO SCH ×2 (08:37→20:03)
[2019-07-31] MEDS: LOVENOX SUBCUT SCH (09:10)
--- NOTE | 2019-07-31 09:21 | PCM.PROG ---
Attending Provider: ATTENDING PROVIDER: Dr. FAISAL ALVARADO This patient is seen with Gerri Dillon, Nurse Practitioner. DATE OF SERVICE: 07/31/19 SUBJECTIVE: This 74 year old /WHITE F was hospitalized 07/28/19. The patient has significant improved. She still has nausea at times. Liver functions are improving. REVIEW OF SYSTEMS: CONSTITUTIONAL: No night sweats. No fatigue, malaise, lethargy. No fever or chills. Weakness. HEENT: Eyes: No visual changes. No eye pain. No eye discharge. ENT: No runny nose. No epistaxis. No sinus pain. No odynophagia. No congestion. RESPIRATORY: No cough, no congestion. No hemoptysis. No shortness of breath. CARDIOVASCULAR: No angina symptoms. No CHF symptoms. No atypical chest pain for CAD. No palpitations. No orthopnea.. GASTROINTESTINAL: No abdominal pain. Nausea. No diarrhea or constipation. No hematemesis. No hematochezia. GENITOURINARY: No urgency. No frequency. No dysuria. No hematuria. No obstructive symptoms. No discharge. No pain. No significant abnormal bleeding. MUSCULOSKELETAL: No musculoskeletal pain; no joint swelling. NEUROLOGICAL: Awake, alert, oriented to time, place and person. No headache. No neck pain. No syncope. No seizures. No dizziness. PSYCHIATRIC: Not anxious. No depression. No suicidal thoughts. No homicidal thoughts. SKIN: No rash. No lesions. No wounds. ENDOCRINE: No unexplained weight loss. No weight gain. HEMATOLOGIC/LYMPHATIC: No anemia. No purpura. No petechiae. No prolonged or excessive bleeding. No palpable lymph nodes. PHYSICAL EXAMINATION: GENERAL: The patient is awake, alert and oriented,sitting in bed in no distress. VITAL SIGNS: Temperature 98.2 F, Pulse 77, Respiratory Rate 17, BP 156/91, Pulse Ox 99% HEENT: Head normocephalic, atraumatic. Eyes: Extraocular muscles are intact. Pupils are equal, round and reactive to light and accommodation. Ears: No lesions. Nose appeared normal. Throat: No exudate or erythema. NECK: Supple. No JVD, no carotid bruit. No lymphadenopathy or thyromegaly. LUNGS: Clear to auscultation. Percussion note normal. Chest symmetrical. HEART: S1, S2, no S3. No murmurs. No cyanosis or clubbing. No ascites. Pulses: Dorsalis pedis and posterior tibial pulses +1 to +2 both sides. ABDOMEN: Soft. Non-tender. Bowel sounds active. No CVA tenderness. No mass felt. EXTREMITIES: No edema. Full range of motion of all extremities, equal. NEUROLOGIC: No focal deficit. Cranial nerves II through XII are grossly intact. No headache, no double vision or headache. SKIN: Not dry. Intact. Turgor-normal. LYMPHATIC: No palpable lymph nodes/no lymphedema. MUSCULOSKELETAL: Normal joints with no swelling. Muscle tone is normal. LAB REVIEW: 07/31/19 04:57 07/31/19 04:57 07/31/19 04:57: Sodium 136.7, Potassium 3.98, Chloride 105.0, Carbon Dioxide 26.5, Anion Gap 9.18, BUN 9.3, Creatinine 0.67, Estimated GFR (MDRD) 86.00, BUN/Creatinine Ratio 13.88, Glucose 95.6, Calcium 9.03, Total Bilirubin 0.45, AST 91.6 H D, ALT 179.2 H D, Alkaline Phosphatase 79.9, Total Protein 6.49, Albumin 3.71, Globulin 2.78, Albumin/Globulin Ratio 1.33 07/31/19 04:57: WBC 3.46 L, RBC 3.48 L, Hgb 11.3 L, Hct 32.9 L, MCV 94.5, MCH 32.5 H, MCHC 34.3, RDW Coeff of [place] 12.6, Plt Count 154, Immature Gran % (Auto) 0.0, Neut % (Auto) 56.7, Lymph % (Auto) 30.3, [place] % (Auto) 10.1 H, Eos % (Auto) 2.3, Baso % (Auto) 0.6, Immature Gran # (Auto) 0.0, Neut # (Auto) 2.0, Lymph # (Auto) 1.1, [place] # (Auto) 0.4, Eos # (Auto) 0.1, Baso # (Auto) 0.0 ASSESSMENT: Please see below. 1. Acute diverticulitis 2. Acute gastroenteritis 3. Elevated liver function 4. Hypokalemia PLAN: 1. Discontinue Levaquin 2. Plan to possible discharge home tomorrow. Plan and coordination of the patient's care discussed in the presence of Tattoo And Body Artist and nurse. SCRIBED BY: SHAMEKA LYNN Optoelectronics Engineer scribed while in presence of service performed by Dr. Alvarado/Gerri Dillon APRN on 07/31/19 ([id number])
[2019-07-31] MEDS: ZANAFLEX PO SCH (20:03)
[2019-07-31] MEDS: ATIVAN PO SCH (20:03)
[2019-08-01 04:46] VITALS: BP 154/83; TEMP 98.3
[2019-08-01] MEDS: FLAGYL 500 MG/100 ML 500 MG/100 ML BAG IV SCH (04:46)
[2019-08-01] MEDS: PROTONIX PO SCH (05:41)
[2019-08-01] MEDS: FIORICET PO PRN ×2 (06:08→09:22)
--- NOTE | 2019-08-01 08:46 | PCM.PROG ---
Attending Provider: ATTENDING PROVIDER: Dr. FAISAL ALVARADO This patient is seen with Gerri Dillon, Nurse Practitioner. DATE OF SERVICE: 08/01/19 SUBJECTIVE: This 74 year old /WHITE F was hospitalized 07/28/19. The patient is resting comfortably. Her nausea has resolved, no diarrhea and she has been eating well. She states that she is ready to go home. REVIEW OF SYSTEMS: CONSTITUTIONAL: No night sweats. No fatigue, malaise, lethargy. No fever or chills. HEENT: Eyes: No visual changes. No eye pain. No eye discharge. ENT: No runny nose. No epistaxis. No sinus pain. No odynophagia. No congestion. RESPIRATORY: No cough, no congestion. No hemoptysis. No shortness of breath. CARDIOVASCULAR: No angina symptoms. No CHF symptoms. No atypical chest pain for CAD. No palpitations. No orthopnea.. GASTROINTESTINAL: No abdominal pain. No nausea or vomiting. No diarrhea or constipation. No hematemesis. No hematochezia. GENITOURINARY: No urgency. No frequency. No dysuria. No hematuria. No obstructive symptoms. No discharge. No pain. No significant abnormal bleeding. MUSCULOSKELETAL: No musculoskeletal pain; no joint swelling. NEUROLOGICAL: Awake, alert, oriented to time, place and person. No headache. No neck pain. No syncope. No seizures. No dizziness. PSYCHIATRIC: Not anxious. No depression. No suicidal thoughts. No homicidal thoughts. SKIN: No rash. No lesions. No wounds. ENDOCRINE: No unexplained weight loss. No weight gain. HEMATOLOGIC/LYMPHATIC: No anemia. No purpura. No petechiae. No prolonged or excessive bleeding. No palpable lymph nodes. PHYSICAL EXAMINATION: GENERAL: The patient is awake, alert and oriented, sitting in bed in no distress. VITAL SIGNS: Temperature 98.3 F, Pulse 65, Respiratory Rate 16, BP 154/83, P ulse Ox 97% HEENT: Head normocephalic, atraumatic. Eyes: Extraocular muscles are intact. Pupils are equal, round and reactive to light and accommodation. Ears: No lesions. Nose appeared normal. Throat: No exudate or erythema. NECK: Supple. No JVD, no carotid bruit. No lymphadenopathy or thyromegaly. LUNGS: Clear to auscultation. Percussion note normal. Chest symmetrical. HEART: S1, S2, no S3. No murmurs. No cyanosis or clubbing. No ascites. Pulses: Dorsalis pedis and posterior tibial pulses +1 to +2 both sides. ABDOMEN: Soft. Non-tender. Bowel sounds active. No CVA tenderness. No mass felt. EXTREMITIES: No edema. Full range of motion of all extremities, equal. NEUROLOGIC: No focal deficit. Cranial nerves II through XII are grossly intact. No headache, no double vision or headache. SKIN: Not dry. Intact. Turgor-normal. LYMPHATIC: No palpable lymph nodes/no lymphedema. MUSCULOSKELETAL: Normal joints with no swelling. Muscle tone is normal. LAB REVIEW: 08/01/19 04:56 08/01/19 04:56 08/01/19 04:56: Sodium 138.5, Potassium 4.13, Chloride 104.2, Carbon Dioxide 29.2, Anion Gap 9.23, BUN 8.8, Creatinine 0.73, Estimated GFR (MDRD) 78.00, BUN/Creatinine Ratio 12.05, Glucose 101.6, Calcium 9.42, Total Bilirubin 0.38, AST 65.0 H D, ALT 143.8 H D, Alkaline Phosphatase 76.9, Total Protein 7.07, Albumin 4.05, Globulin 3.02, Albumin/Globulin Ratio 1.34 08/01/19 04:56: WBC 3.96 L, RBC 3.94 L, Hgb 12.8, Hct 37.4, MCV 94.9, MCH 32.5 H , MCHC 34.2, RDW Coeff of Dimas 12.6, Plt Count 185, Immature Gran % (Auto) 0.3, Neut % (Auto) 51.0, Lymph % (Auto) 36.1, Duc[place]ne % (Auto) 9.8, Eos % (Auto) 2.3, Baso % (Auto) 0.5, Immature Gran # (Auto) 0.0, Neut # (Auto) 2.0, Lymph # (Auto) 1.4, Duc[place]ne # (Auto) 0.4, Eos # (Auto) 0.1, Baso # (Auto) 0.0 ASSESSMENT: Please see below. 1. Acute diverticulitis 2. Acute gastroenteritis 3. Elevated liver function 4. Hypokalemia PLAN: 1. Discharge home 2. Flagyl 500mg BID for 5 days 3. Phenergan 25mg 0.5 to 1 tablet Q 6 hours PRN 4. BRAT diet 5. Liver enzymes improved likely result of viral infection 6. Followup in office in 7-10 days Plan and coordination of the patient's care discussed in the presence of Senior Php Web Developer and nurse. SCRIBED BY: Regis MEZAist scribed while in presence of service performed by Dr. Alvarado/Gerri Dillon APRN on 08/01/19 ([id number])
--- NOTE | 2019-08-01 09:01 | CM.DICTOOL ---
ADMISSION: 07/28/19 08:00 DISCHARGE: 08/01/2019 DATE OF SERVICE: 08/01/19 FINAL DIAGNOSIS ACUTE DIVERTICULITIS, IMPROVING ACUTE GASTROENTERITIS, IMPROVING HYPOKALEMIA, RESOLVED DEHYDRATION, RESOLVED ELEVATED LIVER FUNCTION R/T VIRAL ILLNESS, IMPROVING HYPERTENSION DYSLIPIDEMIA HIATAL HERNIA DIVERTICULOSIS DEPRESSION / ANXIETY HEADACHES, CHRONIC C-DIFF, HISTORY OF CHOLECYSTECTOMY LEFT SHOULDER REPLACEMENT, 2011 LAST VITALS Temp Pulse Resp BP Pulse Ox 98.3 F 65 16 154/83 H 97 08/01/19 04:43 08/01/19 04:43 08/01/19 04:43 08/01/19 04:43 08/01/19 04:43 TAKE THESE MEDICATIONS AT HOME Acetaminophen/Butalbital/Caffeine (Fioricet) 1 each PO TID PRN PRN Reason: headache Last Admin: 08/01/19 06:08 Dose: 1 each Citalopram Hydrobromide (Celexa) 40 mg PO DAILY [facility] Last Admin: 07/31/19 08:37 Dose: 40 mg HCTZ/Losartan Potassium (Hyzaar 50-12.5 Mg Tab) 1 tab PO DAILY [facility] Last Admin: 07/31/19 08:37 Dose: 1 tab Metronidazole (Flagyl) 500mg PO BID x5 days Last Admin: 08/01/19 04:46 Dose: 500mg Promethazine HCl 12.5 mg/ (Sodium Chloride) 50.5 mls @ 75 mls/hr IV Q6H PRN PRN Reason: Nausea / Vomiting Last Admin: 07/30/19 10:13 Dose: 75 mls/hr Lorazepam (Ativan) 1 mg PO BEDTIME [facility] Last Admin: 07/31/19 20:03 Dose: 1 mg Hyoscyamine Sulfate 0.125 mg SL Q4H PRN PRN Reason: Abdominal Pain Mesalamine 2 tab PO DAILY [facility] Last Admin: 07/31/19 08:36 Dose: 2 tab Omeprazole 20 mg PO DAILY Last Admin: 08/01/19 05:41 Propranolol HCl LA (Inderal LA) 160 mg PO DAILY [facility] Last Admin: 07/31/19 20:03 Dose: 40 mg (IR) Simvastatin (Zocor) 40 mg PO BEDTIME [facility] Last Admin: 07/28/19 20:38 Dose: 40 mg Sumatriptan Succinate (Imitrex) 50 mg PO PRN PRN PRN Reason: MODERATE PAIN Last Admin: 07/30/19 02:23 Dose: 50 mg Timolol Maleate (Timoptic 0.5% Opth) 1 drop EACHEYE BID [facility] Last Admin: 07/31/19 20:05 Dose: 1 drop Tizanidine HCl (Zanaflex) 2 mg PO BEDTIME [facility] Last Admin: 07/31/19 20:03 Dose: 2 mg Tramadol HCl (Ultram) 50 mg PO Q4H PRN PRN Reason: PAIN Last Admin: 07/31/19 05:35 Dose: 50 mg ALLERGIES codeine Adverse Reaction (Verified 07/27/19 16:54) Latex, Natural Rubber Adverse Reaction (Verified 07/27/19 16:54) DISCONTINUED MEDICATIONS NONE NEW PRESCRIPTIONS: Flagyl 500mg PO BID x5 DAYS Phenergan 25mg 0.5 - 1 tab PO Q6H PRN NAUSEA #15 SMOKING: NEVER SMOKER DISEASE SPECIFIC EDUCATION: DIVERTICULOSIS BRAT DIET MEDICATION MANAGEMENT FOLLOW-UPS LAB REVIEW: 08/01/19 04:56 08/01/19 04:56 08/01/19 04:56: Sodium 138.5, Potassium 4.13, Chloride 104.2, Carbon Dioxide 29.2, Anion Gap 9.23, BUN 8.8, Creatinine 0.73, Estimated GFR (MDRD) 78.00, BUN/Creatinine Ratio 12.05, Glucose 101.6, Calcium 9.42, Total Bilirubin 0.38, AST 65.0 H D, ALT 143.8 H D, Alkaline Phosphatase 76.9, Total Protein 7.07, Albumin 4.05, Globulin 3.02, Albumin/Globulin Ratio 1.34 08/01/19 04:56: WBC 3.96 L, RBC 3.94 L, Hgb 12.8, Hct 37.4, MCV 94.9, MCH 32.5 H , MCHC 34.2, RDW Coeff of Dimas 12.6, Plt Count 185, Immature Gran % (Auto) 0.3, Neut % (Auto) 51.0, Lymph % (Auto) 36.1, [place] % (Auto) 9.8, Eos % (Auto) 2.3, Baso % (Auto) 0.5, Immature Gran # (Auto) 0.0, Neut # (Auto) 2.0, Lymph # (Auto) 1.4, [place] # (Auto) 0.4, Eos # (Auto) 0.1, Baso # (Auto) 0.0 PLAN: DISCHARGE HOME TODAY, 08/01/2019. DIET: BRAT DIET ACTIVITY: INDEPENDENT, UP TOLERATED, NO RESTRICTIONS FOLLOW-UP: DR. ALVARADO / MANDO WAHL APRN Sunday08/11/19 @ 11:00AM CODE STATUS: DO NOT RESUSCITATE MRS. MO IS ALERT AND ORIENTED X3. SHE IS AGREEABLE WITH THE PLAN TO DISCHARGE HOME TODAY. SHE DENIES THE PRESENCE OF NAUSEA, VOMITING, OR DIARRHEA WITH IMPROVED PAIN AND TENDERNESS TO THE LEFT ABDOMEN. COUNSELLED TO TAKE FLAGYL FOR TREATMENT OF CAUSE OF ABDOMINAL PAIN. PLAN TO SEND HOME WITH PRN PHENERGAN PT STATES THIS HELPS HER NAUSEA THE BEST. INSTRUCTED TO FOLLOW BRAT DIET. PLAN TO FOLLOW UP IN THE OFFICE WITHIN 7-10 DAYS SCHEDULED, PT VERBALIZED UNDERSTANDING. BREATH SOUNDS CLEAR. NO NOTED SWELLING OR EDEMA. APPETITE HAS IMPROVED, HYDRATION STATUS GOOD, SKIN WARM, DRY, AND INTACT. DR. FAISAL ALVARADO M.D. MANDO WAHL APRN
[2019-08-01] MEDS: CELEXA PO SCH (09:16)
[2019-08-01] MEDS: HYZAAR 50-12.5 MG TAB PO SCH (09:16)
[2019-08-01] MEDS: INDERAL PO SCH (09:16)
[2019-08-01] MEDS: LOVENOX SUBCUT SCH (09:17)
[2019-08-01] MEDS: K-DUR PO SCH (09:17)
[2019-08-01] MEDS: TIMOPTIC 0.5% OPTH EACHEYE SCH (09:17)
[2019-08-01] MEDS: ZOFRAN 4 MG/2 ML IVP PRN (09:22)
--- NOTE | 2019-08-01 09:31 | PN ---
DATE OF SERVICE: 07/30/19 SUBJECTIVE: 74 year old white female hospitalized with acute diverticulitis. The patient had acute gastroenteritis type of symptoms mostly viral kind which has subsided. She is feeling a lot better. She is up and about and appetite has been improving. The diet is going to advanced. Her AST and ALT has dropped to 208 and 268 respectively. Just maybe mild nausea and no vomiting. REVIEW OF SYSTEMS: CONSTITUTIONAL: No night sweats. No fatigue, malaise, lethargy. No fever or chills. HEENT: Eyes: No visual changes. No eye pain. No eye discharge. ENT: No runny nose. No epistaxis. No sinus pain. No sore throat. No odynophagia. No congestion. RESPIRATORY: No cough, no congestion. No hemoptysis. No shortness of breath. CARDIOVASCULAR: No angina symptoms. No CHF symptoms. No atypical chest pain for CAD. No palpitations. No PND. No orthopnea. GASTROINTESTINAL: No abdominal pain. No nausea or vomiting. No diarrhea or constipation. No hematemesis. No hematochezia. Appetite is improving. GENITOURINARY: No urgency. No frequency. No dysuria. No hematuria. No obstructive symptoms. No discharge. No pain. No significant abnormal bleeding. MUSCULOSKELETAL: No musculoskeletal pain; no joint swelling. NEUROLOGICAL: No headache. No neck pain. No syncope. No seizures. No dizziness. PSYCHIATRIC: Not anxious. No depression. No suicidal thoughts. No homicidal thoughts. SKIN: No rash. No lesions. No wounds. ENDOCRINE: No unexplained weight loss. No weight gain. HEMATOLOGIC/LYMPHATIC: No anemia. No purpura. No petechiae. No prolonged or excessive bleeding. No palpable lymph nodes. PHYSICAL EXAMINATION: GENERAL: The patient is up and about looked normal. VITAL SIGNS: Temperature 98.2, pulse 60, respiratory rate 16, blood pressure 113/67 and pulse ox 98%. HEENT: Head normocephalic, atraumatic. Eyes: Extraocular muscles are intact. Pupils are equal, round and reactive to light and accommodation. Ears: No lesions. Nose appeared normal. Throat: No exudate or erythema. NECK: Supple. No JVD, no carotid bruit. No lymphadenopathy or thyromegaly. LUNGS: Clear to auscultation. Percussion note normal. Chest symmetrical. HEART: S1, S2, no S3. No murmurs. No cyanosis or clubbing. No ascites. Pulses: Dorsalis pedis and posterior tibial pulses +1 to +2 bilaterally. ABDOMEN: Soft. Nontender. Bowel sounds active. No CVA tenderness. No mass felt. EXTREMITIES: No edema. Full range of motion of all extremities, equal. NEUROLOGIC: No focal deficit. Cranial nerves II through XII are grossly intact. No headache, no double vision or headache. SKIN: Not dry. Intact. Turgor - normal. LYMPHATIC: No palpable lymph nodes/no lymphedema. MUSCULOSKELETAL: Normal joints with no swelling. Muscle tone is normal. LABS: hgb 10.9, hct 31, WBC 3,000 normal differential, creatinine 0.6, BUN 5, potassium 3.6 ASSESSMENT: 1. Acute gastroenteritis, resolving seems to be viral 2. Acute diverticulitis, the liver part is normal. 3. The patient is status post cholecystectomy PLAN: 1. Ultrasound of liver is normal 2. CT scan of the abdomen 3. Hepatitis profile pending 4. Discontinue Levaquin 5. Continue Flagyl 6. Hydration status is normal CLINICALLY CONDITION IS IMPROVING. TIME SPENT: More than 30 minutes. Plan and coordination of the patient's care discussed in the presence of nurse. MOISES
[2019-08-01] MEDS: MESALAMINE PO SCH (09:55)
--- NOTE | 2019-08-01 14:11 | PN ---
DATE OF SERVICE: 07/31/19 SUBJECTIVE: The patient was seen and examined with the Nurse Practitioner. The patient has acute diverticulitis. Liver functions are a lot better. Practically returning to normal. Her picture seems like viral acute gastroenteritis with possibility of diverticulitis. We will continue Flagyl. She is reluctant to go home but condition is improving. TIME SPENT: More than 30 minutes. Plan and coordination of the patient's care discussed in the presence of nurse. MOISES
--- NOTE | 2019-08-01 14:23 | PN ---
DATE OF SERVICE: 07/29/19 SUBJECTIVE: The patient was seen and examined with the Nurse Practitioner. The patient's liver enzymes are abnormal. REVIEW OF SYSTEMS: CONSTITUTIONAL: No night sweats. No fatigue, malaise, lethargy. No fever or chills. HEENT: Eyes: No visual changes. No eye pain. No eye discharge. ENT: No runny nose. No epistaxis. No sinus pain. No sore throat. No odynophagia. No congestion. RESPIRATORY: No cough, no congestion. No hemoptysis. No shortness of breath. CARDIOVASCULAR: No angina symptoms. No CHF symptoms. No atypical chest pain for CAD. No palpitations. No PND. No orthopnea. GASTROINTESTINAL: No abdominal pain. No nausea or vomiting. No diarrhea or constipation. No hematemesis. No hematochezia. GENITOURINARY: No urgency. No frequency. No dysuria. No hematuria. No obstructive symptoms. No discharge. No pain. No significant abnormal bleeding. MUSCULOSKELETAL: No musculoskeletal pain; no joint swelling. NEUROLOGICAL: No headache. No neck pain. No syncope. No seizures. No dizziness. PSYCHIATRIC: Not anxious. No depression. No suicidal thoughts. No homicidal thoughts. SKIN: No rash. No lesions. No wounds. ENDOCRINE: No unexplained weight loss. No weight gain. HEMATOLOGIC/LYMPHATIC: No anemia. No purpura. No petechiae. No prolonged or excessive bleeding. No palpable lymph nodes. PHYSICAL EXAMINATION: HEENT: Head normocephalic, atraumatic. Eyes: Extraocular muscles are intact. Pupils are equal, round and reactive to light and accommodation. Ears: No lesions. Nose appeared normal. Throat: No exudate or erythema. NECK: Supple. No JVD, no carotid bruit. No lymphadenopathy or thyromegaly. LUNGS: Clear to auscultation. Percussion note normal. Chest symmetrical. HEART: S1, S2, no S3. No murmurs. No cyanosis or clubbing. No ascites. Pulses: Dorsalis pedis and posterior tibial pulses +1 to +2 bilaterally. ABDOMEN: Soft. Right upper quadrant mildly tender but most tenderness is in the left upper quadrant. Bowel sounds active. No CVA tenderness. No mass felt. EXTREMITIES: No edema. Full range of motion of all extremities, equal. NEUROLOGIC: No focal deficit. Cranial nerves II through XII are grossly intact. No headache, no double vision or headache. SKIN: Not dry. Intact. Turgor - normal. LYMPHATIC: No palpable lymph nodes/no lymphedema. MUSCULOSKELETAL: Normal joints with no swelling. Muscle tone is normal. LABS: CT scan of the abdomen on admission was negative except for diverticulitis CONDITION: Stable. Improved except for abnormal liver profile PLAN: 1. Hepatis profile 2. Ultrasound of the liver. TIME SPENT: More than 30 minutes. Plan and coordination of the patient's care discussed in the presence of nurse. MOISES
--- NOTE | 2019-08-04 13:13 | DS ---
DATE OF SERVICE: 08/01/19 FINAL DIAGNOSIS: 1. ACUTE DIVERTICULITIS, IMPROVING 2. ACUTE GASTROENTERITIS, IMPROVING 3. HYPOKALEMIA, RESOLVED 4. DEHYDRATION, RESOLVED 5. ELEVATED LIVER FUNCTION R/T VIRAL ILLNESS, IMPROVING 6. HYPERTENSION 7. DYSLIPIDEMIA 8. HIATAL HERNIA 9. DIVERTICULOSIS 10.DEPRESSION / ANXIETY 11.HEADACHES, CHRONIC 12.C-DIFF, HISTORY OF 13.CHOLECYSTECTOMY 14.LEFT SHOULDER REPLACEMENT, 2011 LAST VITALS: Temp Pulse Resp BP Pulse Ox 98.3 F 65 16 154/83 H 97 08/01/19 04:43 08/01/19 04:43 08/01/19 04:43 08/01/19 04:43 08/01/19 04:43 DISCHARGE INSTRUCTIONS: DISCHARGE HOME TODAY, 08/01/2019. FOLLOW-UP: DR. ALVARADO / MANDO WAHL, OYSTER PREPARER, [phone], Sunday08/11/19 @ 11:00AM. CODE STATUS: DO NOT RESUSCITATE. TAKE THESE MEDICATIONS AT HOME: Acetaminophen/Butalbital/Caffeine (Fioricet) 1 each PO TID PRN Citalopram Hydrobromide (Celexa) 40 mg PO DAILY [facility] HCTZ/Losartan Potassium (Hyzaar 50-12.5 Mg Tab) 1 tab PO DAILY [facility] Metronidazole (Flagyl) 500mg PO BID x5 days Promethazine HCl 12.5 mg/ (Sodium Chloride) 50.5 mls @ 75 mls/hr IV Q6H PRN Lorazepam (Ativan) 1 mg PO BEDTIME [facility] Hyoscyamine Sulfate 0.125 mg SL Q4H PRN Mesalamine 2 tab PO DAILY [facility] Omeprazole 20 mg PO DAILY Propranolol HCl LA (Inderal LA) 160 mg PO DAILY [facility] Simvastatin (Zocor) 40 mg PO BEDTIME [facility] Sumatriptan Succinate (Imitrex) 50 mg PO PRN PRN Timolol Maleate (Timoptic 0.5% Opth) 1 drop EACHEYE BID [facility] Tizanidine HCl (Zanaflex) 2 mg PO BEDTIME [facility] Tramadol HCl (Ultram) 50 mg PO Q4H PRN ALLERGIES: codeine Adverse Reaction (Verified 07/27/19 16:54) Latex, Natural Rubber Adverse Reaction (Verified 07/27/19 16:54) DISCONTINUED MEDICATIONS: NONE NEW PRESCRIPTIONS: Flagyl 500mg PO BID x5 DAYS Phenergan 25mg 0.5 - 1 tab PO Q6H PRN NAUSEA #15 SMOKING: NEVER SMOKER DISEASE SPECIFIC EDUCATION: DIVERTICULOSIS BRAT DIET MEDICATION MANAGEMENT FOLLOW-UPS DIET: BRAT DIET ACTIVITY: INDEPENDENT, UP TOLERATED, NO RESTRICTIONS HOSPITAL COURSE: 74 year old white female admitted to the emergency room with left lower quadrant pain, vomiting and diarrhea. She has a history of diverticulitis along with ulcerative colitis was found to be dehydration and had hypokalemia. Initially thought it was diverticulitis however as symptoms progressed with vomiting, diarrhea and low grade fever it was more acute gastroenteritis with dehydration and hypokalemia as a result of the diarrhea. She was initially placed on Flagyl and Levaquin. She has a history of C-Diff so I discontinued the Levaquin as I did feel this was more of an acute gastroenteritis rather than diverticulitis attack that is consistent with the CT scan. With IV Phenergan, Zofran and she was given Lamotil the symptoms did slowly improve of the course of the past two days. Her liver function is significant elevated with AST and ALT into the 800 and 900's on the day following admissions. These have significantly declined. I do believe this is also a result of a viral infection. She has an ultrasound of the liver which showed fatty liver but otherwise no acute process. Hepatis panel was negative. She will go home with Phenergan 25mg take Q 6 hours PRN. She has not had any diarrhea or vomiting for the past 18 hours. She is feeling better. She has been eating a normal diet for the past 24 hours. We will discharge her in stable condition and followup next week. TIME SPENT: More than 60 minutes. COLBYD
--- NOTE | 2019-08-05 10:46 | PN ---
DATE OF SERVICE: 08/01/19 SUBJECTIVE: The patient was seen and examined with the Nurse Practitioner. The patient's condition has improved, her appetites has improved and normal bowel movements. She is up and about afebrile. REVIEW OF SYSTEMS: CONSTITUTIONAL: No night sweats. No fatigue, malaise, lethargy. No fever or chills. HEENT: Eyes: No visual changes. No eye pain. No eye discharge. ENT: No runny nose. No epistaxis. No sinus pain. No sore throat. No odynophagia. No congestion. RESPIRATORY: No cough, no congestion. No hemoptysis. No shortness of breath. CARDIOVASCULAR: No angina symptoms. No CHF symptoms. No atypical chest pain for CAD. No palpitations. No PND. No orthopnea. GASTROINTESTINAL: No abdominal pain. No nausea or vomiting. No diarrhea or constipation. No hematemesis. No hematochezia. GENITOURINARY: No urgency. No frequency. No dysuria. No hematuria. No obstructive symptoms. No discharge. No pain. No significant abnormal bleeding. MUSCULOSKELETAL: No musculoskeletal pain; no joint swelling. NEUROLOGICAL: No headache. No neck pain. No syncope. No seizures. No dizziness. PSYCHIATRIC: Not anxious. No depression. No suicidal thoughts. No homicidal thoughts. SKIN: No rash. No lesions. No wounds. ENDOCRINE: No unexplained weight loss. No weight gain. HEMATOLOGIC/LYMPHATIC: No anemia. No purpura. No petechiae. No prolonged or excessive bleeding. No palpable lymph nodes. PHYSICAL EXAMINATION: HEENT: Head normocephalic, atraumatic. Eyes: Extraocular muscles are intact. Pupils are equal, round and reactive to light and accommodation. Ears: No lesions. Nose appeared normal. Throat: No exudate or erythema. NECK: Supple. No JVD, no carotid bruit. No lymphadenopathy or thyromegaly. LUNGS: Clear to auscultation. Percussion note normal. Chest symmetrical. HEART: S1, S2, no S3. No murmurs. No cyanosis or clubbing. No ascites. Pulses: Dorsalis pedis and posterior tibial pulses +1 to +2 bilaterally. ABDOMEN: Soft. Nontender. Bowel sounds active. No CVA tenderness. No mass felt. Diverticulitis seems to have resolved. Liver functions seem to be a lot better. EXTREMITIES: No edema. Full range of motion of all extremities, equal. NEUROLOGIC: No focal deficit. Cranial nerves II through XII are grossly intact. No headache, no double vision or headache. SKIN: Not dry. Intact. Turgor - normal. LYMPHATIC: No palpable lymph nodes/no lymphedema. MUSCULOSKELETAL: Normal joints with no swelling. Muscle tone is normal. ASSESSMENT: 1. Acute gastroenteritis with diverticulitis and inflammation of the liver PLAN: 1. We will follow as an outpatient. TIME SPENT: More than 30 minutes. Plan and coordination of the patient's care discussed in the presence of nurse. MOISES
--- NOTE | 2019-08-05 10:47 | PN ---
07/28/19: Level 5 07/29/19: Intermediate 07/30/19: Intermediate 07/31/19: Intermediate 08/01/19: D as in discharge MTDD
== END 2019-08-01 10:50 | disposition home or self-care (01) | DRG 392 ==
LOC: ED 16:43 → INTOOBSV 20:25 → MEDSURG A 20:25
PROVIDERS: ADMIT Internal Medicine; ATTEND Internal Medicine
DX: E78.5 Hyperlipidemia, unspecified; E86.0 Dehydration; F41.8 Other specified anxiety disorders; R11.2 Nausea with vomiting, unspecified; R51 Headache; I10 Essential (primary) hypertension; K52.9 Noninfective gastroenteritis and colitis, unspecified; R19.7 Diarrhea, unspecified; E87.6 Hypokalemia; K57.92 Diverticulitis of intestine, part unspecified, without perforation or abscess without bleeding; R10.9 Unspecified abdominal pain; K44.9 Diaphragmatic hernia without obstruction or gangrene

== ENCOUNTER 2020-03-12 20:18 | Inpatient (IN) ==
--- NOTE | 2020-03-12 20:52 | ED.PDOC ---
General ED Provider: Dr. GREGORIA JOHNSON Chief Complaint: Syncope Stated Complaint: I just sank to the floor; it happened one time earlier in the week Time Seen by Physician: 20:40 Mode of Arrival: Stretcher Information Source: Patient Exam Limitations: No limitations Primary Care Provider: FAISAL ALVARADO Nursing and Triage Documentation Reviewed and Agree: Yes Does patient meet sepsis criteria?: No System Inflammatory Response Syndrome: Not Applicable Sepsis Protocol: For patient's 13 years and over: Temp is 96.8 and below OR 101 and greater Pulse >90 BPM Resp >20/minute Acutely Altered Mental Status Are patient's symptoms suggestive of a new infection, such as: -Pneumonia -Skin, Soft Tissue -Endocarditis -UTI -Bone, Joint Infection -Implantable Device -Acute Abdominal Infection -Wound Infection -Meningitis -Blood Stream Catheter Infection -Unknown Review of Systems Review Of Systems Constitutional: Reports Weakness Eyes: Reports No symptoms Ears, Nose, Mouth, Throat: Reports No symptoms Respiratory: Reports No symptoms; Denies Cough Cardiac: Reports No symptoms; Denies Chest pain GI: Reports No symptoms Skin: Reports No symptoms All Other Systems: Reviewed and Negative [facility] Medical History Cholecystectomy planned Colitis Diverticulosis GERD (gastroesophageal reflux disease) Hx of tubal ligation Hyperlipidemia Hypertension Family History FATHER Cancer of lung BROTHER FH: kidney cancer Diabetes Mother Stroke Social History Smoking and tobacco status: Never smoker Alcohol intake: never Substance use type: does not use Jenn/tenriism: Prespy. Special jenn needs: No Agree to transfusion: Yes Household members: none Housing: house Lives independently: Yes Number of children: 4 Highest education level completed: Associate degree: academic program Financial difficulty paying for basics: not very hard History of recent travel: No Sexually active: No Do you think of yourself as: straight/heterosexual Current gender identity: female Current diet type/program: other Well-balanced diet: daily Caffeine: Yes Eating out: rarely or never Reads food labels: seldom or never Water heater temperature set < 120 degrees: Yes Working smoke detector in home: Yes Fire extinguisher in home: Yes Carbon monoxide detector in home: Yes Firearms in home: No What type of physical activity do you participate in?: walking Physical activity functional status: independent ambulation Female Reproductive History Menstrual Hx Hysterectomy: No Hx Tubal Ligation: Yes Physical Exam Physical Exam Appearance: Reports Well-appearing Ill-appearing: None Pain Distress: None Eyes: Reports JENNYFER and EOMI ENT: Reports Ears normal, Nose normal and Oropharynx normal Neck: Supple Respiratory: Reports Airway patent, Breath sounds clear and Breath sounds equal Cardiovascular: Reports RRR, Pulses normal and Bradycardia GI/: Reports Soft and Nontender Musculoskeletal: Reports Normal strength, ROM intact, No edema and No calf tenderness Skin: Reports Warm, Dry, Normal color and Pale Neurological: Reports Sensation intact, Motor intact, Alert and Oriented Psychiatric: Reports Affect appropriate and Mood appropriate Interpretation Radiology Interpretation Radiology Interpretation By: Radiologist Radiology Results: No acute changes Exam Interpreted: Portable CXR EKG Interpretation Time of EKG #1: 22:25 Rate: Michele Rhythm: Sinus Ectopy: None [place]: NL ST Segment: Normal Physician Notification Case Discussed Physician Notified: Dr Alvarado; Admission discussed Time of Notification: 23:50 Critical Care Note Critical Care Note Total Time (mins): 35 Comments: Eval of clinical picture and pt HX, review X Ray, EKG, labs, discussion with Primary care; decision to admit Course Course Hematology/Chemistry: 03/13/20 05:27 03/13/20 05:27 Orders, Labs, Meds: Lab Review 03/12/20 03/12/20 21:07 21:07 WBC 3.96 L RBC 3.12 L Hgb 10.2 L Hct 29.2 L MCV 93.6 MCH 32.7 H MCHC 34.9 RDW Coeff of [place] 12.5 Plt Count 121 L Immature Gran % (Auto) 0.3 Neut % (Auto) 58.7 Lymph % (Auto) 27.8 [place] % (Auto) 10.4 H Eos % (Auto) 2.5 Baso % (Auto) 0.3 Neut # (Auto) 2.3 Lymph # (Auto) 1.1 [place] # (Auto) 0.4 Eos # (Auto) 0.1 Baso # (Auto) 0.0 Immature Gran # (Auto) 0.0 Sodium 133.0 L Potassium 3.42 L Chloride 100.4 Carbon Dioxide 28.9 Anion Gap 7.12 BUN 13.0 Creatinine 0.82 Estimated GFR (MDRD) 68.00 BUN/Creatinine Ratio 15.85 Glucose 85.7 Calcium 8.30 L Total Bilirubin 0.55 AST 35.9 ALT 14.9 Alkaline Phosphatase 51.1 L Troponin I < 0.012 Total Protein 5.89 L Albumin 3.36 L Globulin 2.53 Albumin/Globulin Ratio 1.32 Orders Category Date Time Status EKG-(ED ONLY) Stat CARDIO 03/12/20 22:04 Completed EKG-(IP & OP ONLY) DAILY CARDIO 03/13/20 06:00 Completed EKG-(IP & OP ONLY) DAILY CARDIO 03/14/20 06:00 Ordered OXYGEN Routine CARDIO 03/12/20 23:56 Active ACTIVITY .Complete BR CARE 03/12/20 23:55 Active INTAKE & OUTPUT Q8HR CARE 03/12/20 23:55 Active VITAL SIGNS Q8HR CARE 03/12/20 23:55 Active REGULAR DIET DIETARY 03/12/20 Breakfast Ordered CBC W/ AUTO DIFF DAILY@0600 LAB 03/13/20 05:27 Completed CBC W/ AUTO DIFF DAILY@0600 LAB 03/14/20 06:00 Ordered CBC W/ AUTO DIFF Stat LAB 03/12/20 21:07 Completed COMPREHENSIVE METABOLIC PANEL DAILY@0600 LAB 03/13/20 05:27 Completed COMPREHENSIVE METABOLIC PANEL DAILY@0600 LAB 03/14/20 06:00 Ordered COMPREHENSIVE METABOLIC PANEL Stat LAB 03/12/20 21:07 Completed TROPONIN I Q8H LAB 03/13/20 05:27 Completed TROPONIN I Q8H LAB 03/13/20 14:21 Completed TROPONIN I Stat LAB 03/12/20 21:07 Completed URINALYSIS C & S IF INDICATED Stat LAB 03/12/20 20:52 Completed Citalopram Hydrobromide [Celexa] MEDS 03/13/20 09:00 Active 40 mg PO DAILY Hydrochlorothiazide MEDS 03/13/20 09:00 Active 12.5 mg PO DAILY Loratadine [Claritin] MEDS 03/13/20 09:00 Active 10 mg PO DAILY Lorazepam [Ativan] MEDS 03/12/20 23:45 Active 1 mg PO BEDTIME Losartan Potassium [Cozaar] MEDS 03/13/20 09:00 Discontinued 100 mg PO DAILY Omeprazole [Prilosec] MEDS 03/13/20 06:30 Active 20 mg PO DAILY@0630 Simvastatin [Zocor] MEDS 03/13/20 21:00 Active 40 mg PO BEDTIME Sodium Chloride 0.9% [Sodium Chloride] 1,000 ml MEDS 03/12/20 23:45 Active IV 75 mls/hr Sodium Chloride 0.9% [Sodium Chloride] 1,000 ml MEDS 03/12/20 23:01 Dis continued IV BOLUS Sumatriptan Succinate [Imitrex] MEDS 03/12/20 23:58 Active 50 mg PO 1-2XD PRN Tizanidine HCl [Zanaflex] MEDS 03/13/20 21:00 Active 2 mg PO BEDTIME Tramadol HCl [Ultram] MEDS 03/12/20 23:58 Active 50 mg PO Q4H PRN vzmrdyltpge-wlctelyht-whz C-Mn MEDS 03/13/20 09:00 Active 1 each PO DAILY propranolol [Inderal LA] MEDS 03/13/20 09:00 Discontinued 160 mg PO DAILY RESUSCITATION STATUS Routine OTHERS 03/12/20 23:55 Completed CHEST, 1V AP ONLY Stat RADS 03/12/20 20:52 Completed Medications Generic Name Dose Route Start Last Admin Trade Name Freq PRN Reason Stop Dose Admin Citalopram Hydrobromide 40 mg 03/13/20 09:00 03/13/20 08:59 Celexa PO 40 mg DAILY BRANDON Administration Hydrochlorothiazide 12.5 mg 03/13/20 09:00 03/13/20 08:57 Hydrochlorothiazide PO 12.5 mg DAILY BRANDON Administration Sodium Chloride 1,000 mls @ 75 mls/hr 03/12/20 23:45 03/13/20 13:58 Sodium Chloride IV 75 mls/hr .[id number] BRANDON Administration Loratadine 10 mg 03/13/20 09:00 03/13/20 08:59 Claritin PO 10 mg DAILY BRANDON Administration Lorazepam 1 mg 03/12/20 23:45 03/13/20 19:59 Ativan PO 1 mg BEDTIME BRANDON Administration Losartan Potassium 50 mg 03/14/20 09:00 Cozaar PO DAILY BRANDON Non-Formulary Medication 1 each 03/13/20 09:00 03/13/20 09:16 Bzyrhhyueuo-Kfjxhpfsc-Mfq C-Mn PO 1 each DAILY BRANDON Administration Non-Formulary Medication 160 mg 03/14/20 21:00 Propranolol [Inderal La] PO BEDTIME BRANDON Non-Formulary Medication 2.4 gm 03/14/20 08:30 Mesalamine PO DAILYWM BRANDON Omeprazole 20 mg 03/13/20 06:30 03/13/20 06:08 Prilosec PO 20 mg DAILY@0630 BRANDON Administration Simvastatin 40 mg 03/13/20 21:00 03/13/20 19:59 Zocor PO 40 mg BEDTIME BRANDON Administration Sumatriptan Succinate 50 mg 03/12/20 23:58 Imitrex PO 1-2XD PRN MIGRAINE Tizanidine HCl 2 mg 03/13/20 21:00 03/13/20 19:59 Zanaflex PO 2 mg BEDTIME BRANDON Administration Tramadol HCl 50 mg 03/12/20 23:58 03/13/20 18:59 Ultram PO 50 mg Q4H PRN Administration MODERATE PAIN Discontinued Medications Generic Name Dose Route Start Last Admin Trade Name Freq PRN Reason Stop Dose Admin Sodium Chloride 1,000 mls @ 1,000 mls/hr 03/12/20 23:01 03/12/20 23:08 Sodium Chloride IV 03/13/20 00:00 1,000 mls/hr BOLUS STA Administration Lorazepam 1 mg 03/13/20 22:13 03/13/20 22:37 Ativan PO 03/13/20 22:14 1 mg ONCE STA Administration Losartan Potassium 100 mg 03/13/20 09:00 03/13/20 09:19 Cozaar PO 100 mg DAILY BRANDON Administration Non-Formulary Medication 160 mg 03/13/20 09:00 03/13/20 09:02 Propranolol [Inderal La] PO Not Given DAILY BRANDON Vital Signs: Temp Pulse Resp BP Pulse Ox 03/12/20 20:26 97.5 F L 58 L 18 76/52 L 99 Discharge Plan Discharge Patient Disposition: ADMITTED INPATIENT Discharge Problem: Syncope and collapse ED Provider: GREGORIA JOHNSON Condition: Stable Discharge Date/Time: 03/13/20 00:49
[2020-03-12 21:12] LABS: HEMATOCRIT 29.2 % (37.0-47.0)
--- NOTE | 2020-03-12 21:14 | DI ---
EXAM: Single, portable AP view(s) chest. HISTORY: Syncope. COMPARISON: 02/02/2020 TECHNIQUE: Single, portable AP view(s) of the chest. FINDINGS: Lungs: The lung voulmes are normal.The lungs are clear without consolidation or effusion. Calcified g ranulomas are seen.There are no suspicious nodules. There is no pneumothorax. Cardiovascular: The heart size and pulmonary vasculature is normal.. The aorta is unremarkable. Tracy/Mediastinum: Normal. Osseous structures. There is scoliosis of the spine to the right. Postoperative changes are seen in the left shoulder. IMPRESSION: 1. No acute pulmonary disease. 2. Granulomatous change.
[2020-03-12] MEDS ORDERED: SODIUM CHLORIDE 1,000 ML IV STA (23:01)
[2020-03-12] MEDS ORDERED: IMITREX PO PRN (23:58)
[2020-03-13 00:55] VITALS: BMI 25.2
[2020-03-13] MEDS: SODIUM CHLORIDE 1,000 ML IV SCH ×2 (01:00→13:58)
[2020-03-13] MEDS: ATIVAN PO SCH ×2 (01:03→19:59)
[2020-03-13 05:30] LABS: HEMATOCRIT 28.7 % (37.0-47.0)
[2020-03-13] MEDS: PRILOSEC PO SCH (06:08)
[2020-03-13] MEDS: HYDROCHLOROTHIAZIDE PO SCH (08:57)
[2020-03-13] MEDS: CELEXA PO SCH (08:59)
[2020-03-13] MEDS: CLARITIN PO SCH (08:59)
[2020-03-13] MEDS ORDERED: COZAAR PO SCH (09:00)
[2020-03-13] MEDS ORDERED: PROPRANOLOL 160 MG PO SCH (09:00)
[2020-03-13] MEDS: GLUCOSAMINE CHONDROIT VIT C MN PO SCH (09:16)
[2020-03-13] MEDS: ULTRAM PO PRN (18:59)
[2020-03-13] MEDS: ZANAFLEX PO SCH (19:59)
[2020-03-13] MEDS: ZOCOR PO SCH (19:59)
[2020-03-13] MEDS ORDERED: ATIVAN PO STA (22:13)
[2020-03-14] MEDS: SODIUM CHLORIDE 1,000 ML IV SCH ×2 (03:10→20:53)
[2020-03-14 04:36] LABS: HEMATOCRIT 29.2 % (37.0-47.0)
[2020-03-14] MEDS: ULTRAM PO PRN ×3 (06:12→20:53)
[2020-03-14] MEDS: PRILOSEC PO SCH (06:12)
[2020-03-14] MEDS: HYDROCHLOROTHIAZIDE PO SCH (08:31)
[2020-03-14] MEDS: CELEXA PO SCH (08:31)
[2020-03-14] MEDS: GLUCOSAMINE CHONDROIT VIT C MN PO SCH (08:32)
[2020-03-14] MEDS: CLARITIN PO SCH (08:32)
[2020-03-14] MEDS: COZAAR PO SCH (08:32)
[2020-03-14] MEDS: MESALAMINE 2.4 GM PO SCH (08:32)
[2020-03-14] MEDS ORDERED: COZAAR PO SCH (09:00)
[2020-03-14] MEDS: CHOLECALCIFEROL 25 MCG PO SCH (09:43)
[2020-03-14] MEDS: NON-FORMULARY MEDICATION (Multivit-Min-Iron-Fa-Lutein [Centrum Silver Women] 1 TAB) PO SCH (09:43)
[2020-03-14] MEDS: ZOCOR PO SCH (20:53)
[2020-03-14] MEDS: ATIVAN PO SCH (20:53)
[2020-03-14] MEDS: ZANAFLEX PO SCH (20:53)
[2020-03-14] MEDS ORDERED: PROPRANOLOL 160 MG PO SCH (21:00)
[2020-03-15 05:19] LABS: HEMATOCRIT 31.9 % (37.0-47.0)
[2020-03-15 05:54] VITALS: TEMP 97.8
[2020-03-15] MEDS: PRILOSEC PO SCH (06:11)
[2020-03-15] MEDS: ULTRAM PO PRN (06:14)
[2020-03-15] MEDS: CELEXA PO SCH (08:21)
[2020-03-15] MEDS: CLARITIN PO SCH (08:21)
[2020-03-15] MEDS: HYDROCHLOROTHIAZIDE PO SCH (08:22)
[2020-03-15] MEDS: COZAAR PO SCH (08:22)
[2020-03-15] MEDS: GLUCOSAMINE CHONDROIT VIT C MN PO SCH (08:23)
[2020-03-15] MEDS: CHOLECALCIFEROL 25 MCG PO SCH (08:23)
[2020-03-15] MEDS: NON-FORMULARY MEDICATION (Multivit-Min-Iron-Fa-Lutein [Centrum Silver Women] 1 TAB) PO SCH (08:24)
[2020-03-15] MEDS: MESALAMINE 2.4 GM PO SCH (08:24)
[2020-03-15 08:27] VITALS: BP 152/87
[2020-03-15] MEDS: SODIUM CHLORIDE 1,000 ML IV SCH (09:31)
--- NOTE | 2020-03-15 09:54 | PCM.PROG ---
Attending Provider: ATTENDING PROVIDER: Dr. FAISAL ALVARADO This patient is seen with Ivon Restrepo, Nurse Practitioner. DATE OF SERVICE: 03/15/20 SUBJECTIVE: This 74 year old /WHITE F was hospitalized 03/13/20. Alert and resting on the side of the bed. She reports that she is feeling much better and she has had no episodes of what she describes as melting since she has been hospitalized. We will check Orthostatic blood pressure today. We also have her scheduled for a 2D echo and a carotid ultrasound. REVIEW OF SYSTEMS: CONSTITUTIONAL: No night sweats. No fatigue, malaise, lethargy. No fever or chills. Weakness. HEENT: Eyes: No visual changes. No eye pain. No eye discharge. ENT: No runny nose. No epistaxis. No sinus pain. No odynophagia. No congestion. RESPIRATORY: No cough, no congestion. No hemoptysis. No shortness of breath. CARDIOVASCULAR: No angina symptoms. No CHF symptoms. No atypical chest pain for CAD. No palpitations. No orthopnea.. GASTROINTESTINAL: No abdominal pain. No nausea or vomiting. No diarrhea or constipation. No hematemesis. No hematochezia. GENITOURINARY: No urgency. No frequency. No dysuria. No hematuria. No obstructive symptoms. No discharge. No pain. No significant abnormal bleeding. MUSCULOSKELETAL: No musculoskeletal pain; no joint swelling. NEUROLOGICAL: Awake, alert, oriented to time, place and person. No headache. No neck pain. No syncope. No seizures. No dizziness. PSYCHIATRIC: Not anxious. No depression. No suicidal thoughts. No homicidal thoughts. SKIN: No rash. No lesions. No wounds. ENDOCRINE: No unexplained weight loss. No weight gain. HEMATOLOGIC/LYMPHATIC: No anemia. No purpura. No petechiae. No prolonged or excessive bleeding. No palpable lymph nodes. PHYSICAL EXAMINATION: GENERAL: The patient is awake, alert and oriented, sitting in bed in no distress. VITAL SIGNS: Temperature 97.8 F, Pulse 60, Respiratory Rate 16, BP 121/71, Pulse Ox 98% HEENT: Head normocephalic, atraumatic. Eyes: Extraocular muscles are intact. Pupils are equal, round and reactive to light and accommodation. Ears: No lesions. Nose appeared normal. Throat: No exudate or erythema. NECK: Supple. No JVD, no carotid bruit. No lymphadenopathy or thyromegaly. LUNGS: Clear to auscultation. Percussion note normal. Chest symmetrical. HEART: S1, S2, no S3. No murmurs. No cyanosis or clubbing. No ascites. Pulses: Dorsalis pedis and posterior tibial pulses +1 to +2 both sides. ABDOMEN: Soft. Non-tender. Bowel sounds active. No CVA tenderness. No mass felt. EXTREMITIES: No edema. Full range of motion of all extremities, equal. NEUROLOGIC: No focal deficit. Cranial nerves II through XII are grossly intact. No headache, no double vision or headache. SKIN: Not dry. Intact. Turgor-normal. LYMPHATIC: No palpable lymph nodes/no lymphedema. MUSCULOSKELETAL: Normal joints with no swelling. Muscle tone is normal. LAB REVIEW: 03/15/20 04:50 03/15/20 04:50 03/15/20 04:50: Sodium 137.6, Potassium 3.56, Chloride 106.6, Carbon Dioxide 25.6, Anion Gap 8.96, BUN 7.9, Creatinine 0.57 L, Estimated GFR (MDRD) 104.00, BUN/Creatinine Ratio 13.85, Glucose 91.7, Calcium 9.13, Total Bilirubin 0.40, AST 27.7, ALT 15.7, Alkaline Phosphatase 52.0 L, Total Protein 6.17 L, Albumin 3.37 L, Globulin 2.80, Albumin/Globulin Ratio 1.20 03/15/20 04:50: WBC 3.41 L, RBC 3.42 L, Hgb 11.0 L, Hct 31.9 L, MCV 93.3, MCH 32.2 H, MCHC 34.5, RDW Coeff of Diams 12.5, Plt Count 126 L, Immature Gran % (Auto) 0.3, Neut % (Auto) 50.5, Lymph % (Auto) 34.3, [place] % (Auto) 11.1 H, Eos % (Auto) 2.9, Baso % (Auto) 0.9, Neut # (Auto) 1.7 L, Lymph # (Auto) 1.2, [place] # (Auto) 0.4, Eos # (Auto) 0.1, Baso # (Auto) 0.0, Immature Gran # (Auto) 0.0 ASSESSMENT: Please see below. 1. Syncope 2. Postural hypotension 3. History of hypertension 4. Anxiety 5. Dyslipidemia PLAN: 1. Discontinue IV fluids 2. Fall precautions 3. Orthostatic blood pressure 4. 2D echo 5. Carotid ultrasound 6. Encourage good oral and nutritional intake Plan and coordination of the patient's care discussed in the presence of S[employer] Machine Operator and nurse. SCRIBED BY: Regis MEZAist scribed while in presence of service performed by Dr. Alvarado/Ivon Restrepo APRN on 03/15/20 ([id number])
--- NOTE | 2020-03-15 10:38 | HOLTER ---
PATIENT INFORMATION AND COMMENTS Attending Physician: DR. FAISAL ALVARADO Indications: SYNCOPE __ Patient Medications: HYDROCHLOROTHIAZIDE, LOSARTAN, MESALAMINE, CELEXA, CLARITIN, ATIVAN, PROPRANOLOL, PRILOSEC, ZOCOR, IMITREX, ZANAFLEX, ULTRAM __ Pre-procedure Summary: Protocol: Standard Heart Rate Started: 03/13/2020 1201 Minimum: 39 BPM Weight: 146 LBS Ended: 03/14/2020 1201 Maximum: 102 BPM Height: 64" Duration: 21 HRS 10 MIN Average: 56 BPM _ INTERPRETATIONS/OBSERVATIONS: 1. BASIC RHYTHM: SINUS, RATE 40 BPM TO 100 BPM, AVERAGE RATE 56 BPM 2. RARE, ISOLATED PAC'S AND PVC'S 3. ONE RUNE OF SUPRAVENTRICULAR TACHYCARDIA WITH RATE 100 BPM, CONSISTING OF [address]-T WAVE CHANGES FROM BASELINE MTDD
--- NOTE | 2020-03-15 10:56 | ECHO2D ---
Date of Exam: 03/15/2020 Ordering Physician: DR. FAISAL ALVARADO Room #: 115 Reason for Echo: SYNCOPE, HX HTN, HYPERLIPIDEMIA M-Mode Normal Adult Results LV Dimensions Normal Adult Results AoV Opening excursions >1.6 >1.6 LVEDD-base- 3.5-5.8 3.6 Ao root dimensions 2.0-3.7 3.4 LVESD-base- 3.1-4.6 L. Atrium dimensions 1.9-3.8 4.2 Post. Wall thickness 0.8-1.1 1.1 IV septum (thickness) 0.7-1.2 1.2 Post. Wall excursion 0.72-1.3 NORMAL Septal motion NORMAL Systolic motion R. Ventricular cavity 1.5-2.0 NORMAL LVEF 60% 84% Paradoxical septal wall motion NORMAL 2-D : 2-D M Mode Echocardiogram was performed using apical four chamber and left parasternal long and short axis views. Mitral, tricuspid and aortic valves appear to be normal. Contractility of the left ventricle seems to be normal, so is the cavity size. ENLARGED LEFT ATRIAL CAVITY SIZE. Aortic root appears to be normal. There is no pericardial effusion. There is no thrombus noted in the left ventricle or left atrial cavity. No mitral valve prolapse noted. M-MODE: MV: NORMAL AV: NORMAL TV: NORMAL PV: CHAMBER SIZE: ENLARGED LEFT ATRIAL CAVITY WALL MOTION: NORMAL PERICARDIUM: NORMAL INTERPRETATION: 1. LEFT VENTRICULAR HYPERTROPHY BORDERLINE WITH ENLARGED LEFT ATRIAL CAVITY 2. NORMAL LEFT VENTRICULAR CONTRACTILITY 3. NORMAL VALVES MTDD
--- NOTE | 2020-03-15 11:06 | US ---
EXAM: Ultrasound bilateral carotid duplex. HISTORY: Syncope. COMPARISON: None available. TECHNIQUE: A duplex Doppler study was performed consisting of integrated two dimensional (2D) real-t keke imaging color flow Doppler and Doppler spectral analysis utilizing linear array probes. FINDINGS: Please note that estimates of internal carotid artery stenoses are based upon NASCET crite silvano. Right carotid: Calcified plaquing without visualized 50% or greater stenosis. Peak systolic velocit y measurement in the right internal carotid artery is 0.82 meters per second. Right internal to comm on carotid artery peak systolic velocity ratio measures 1.3. End diastolic velocity measurement in t he right internal carotid artery is 0.23 meters per second. Flow in the right vertebral artery is an tegrade. Left carotid: Calcified plaquing without visualized 50% or greater stenosis. Peak systolic velocity measurement in the left internal carotid artery is 0.61 meters per second. Left internal to common carotid artery peak systolic velocity ratio measures 1.1. End diastolic velocity measurement in the left internal carotid artery measures 0.22 meters per second. Flow in the left vertebral artery is a ntegrade. IMPRESSION: 1. No evidence for 50% or greater stenosis in the right or left internal carotid artery. 2. Antegrade flow in both vertebral arteries.
--- NOTE | 2020-03-15 11:06 | PN ---
DATE OF SERVICE: 03/13/2020 SUBJECTIVE: The patient was hospitalized because of syncopal episode. The patient didn't pass out completely but she felt that she is going to pass out. She eased herself. This is the second time this has happened in past couple of weeks. The patient says that her blood pressure at home whenever this happens goes down to 60 to 70 systolic. The patient's blood pressure in the office and in the hospital has never been found to be that low but in any case. The patient was hospitalized and neurological status is normal. REVIEW OF SYSTEMS: CONSTITUTIONAL: No night sweats. No fatigue, malaise, lethargy. No fever or chills. HEENT: Eyes: No visual changes. No eye pain. No eye discharge. ENT: No runny nose. No epistaxis. No sinus pain. No sore throat. No odynophagia. No congestion. RESPIRATORY: No cough, no congestion. No hemoptysis. No shortness of breath. CARDIOVASCULAR: No angina symptoms. No CHF symptoms. No atypical chest pain for CAD. No palpitations. No PND. No orthopnea. GASTROINTESTINAL: No abdominal pain. No nausea or vomiting. No diarrhea or constipation. No hematemesis. No hematochezia. GENITOURINARY: No urgency. No frequency. No dysuria. No hematuria. No obstructive symptoms. No discharge. No pain. No significant abnormal bleeding. MUSCULOSKELETAL: No musculoskeletal pain; no joint swelling. NEUROLOGICAL: No headache. No neck pain. No syncope. No seizures. No dizziness. PSYCHIATRIC: Not anxious. No depression. No suicidal thoughts. No homicidal thoughts. SKIN: No rash. No lesions. No wounds. ENDOCRINE: No unexplained weight loss. No weight gain. HEMATOLOGIC/LYMPHATIC: No anemia. No purpura. No petechiae. No prolonged or excessive bleeding. No palpable lymph nodes. PHYSICAL EXAMINATION: GENERAL: The patient is oriented to time, place and person. VITAL SIGNS: Blood pressure this morning systolic is 130. HEENT: Head normocephalic, atraumatic. Eyes: Extraocular muscles are intact. Pupils are equal, round and reactive to light and accommodation. Ears: No lesions. Nose appeared normal. Throat: No exudate or erythema. NECK: Supple. No JVD, no carotid bruit. No lymphadenopathy or thyromegaly. LUNGS: Clear to auscultation. Percussion note normal. Chest symmetrical. HEART: S1, S2, no S3. No murmurs. No cyanosis or clubbing. No ascites. Pulses: Dorsalis pedis and posterior tibial pulses +1 to +2 bilaterally. ABDOMEN: Soft. Nontender. Bowel sounds active. No CVA tenderness. No mass felt. EXTREMITIES: No edema. Full range of motion of all extremities, equal. NEUROLOGIC: No focal deficit. Cranial nerves II through XII are grossly intact. No headache, no double vision or headache. SKIN: Not dry. Intact. Turgor - normal. LYMPHATIC: No palpable lymph nodes/no lymphedema. MUSCULOSKELETAL: Normal joints with no swelling. Muscle tone is normal. LABS: EKG doesn't show any acute changes. Telemetry doesn't show any arrhythmias of any significance as she takes a long acting Inderal at night for number of years 160mg for her migraine headaches and Losartan 100mg in the morning. ASSESSMENT: 1. Syncope PLAN: 1. Watch her 2. The patient is strongly advised not to take her blood pressure 5 times a day 3. The patient will have Holter Monitor 4. Continue telemetry monitoring 5. Losartan will be deduced to 50mg in the morning. 6. Advised to eat some more salt and more fluids. CONDITION: Stable so far TIME SPENT: More than 30 minutes. Plan and coordination of the patient's care discussed in the presence of nurse. MOISES
--- NOTE | 2020-03-15 12:29 | PN ---
DATE OF SERVICE: 03/14/2020 SUBJECTIVE: The blood pressure is staying steady. On admission the EMT had checked the blood pressure at home which was 77. REVIEW OF SYSTEMS: CONSTITUTIONAL: No night sweats. No fatigue, malaise, lethargy. No fever or chills. HEENT: Eyes: No visual changes. No eye pain. No eye discharge. ENT: No runny nose. No epistaxis. No sinus pain. No sore throat. No odynophagia. No congestion. RESPIRATORY: No cough, no congestion. No hemoptysis. No shortness of breath. CARDIOVASCULAR: No angina symptoms. No CHF symptoms. No atypical chest pain for CAD. No palpitations. No PND. No orthopnea. GASTROINTESTINAL: No abdominal pain. No nausea or vomiting. No diarrhea or constipation. No hematemesis. No hematochezia. Eating better. GENITOURINARY: No urgency. No frequency. No dysuria. No hematuria. No obstructive symptoms. No discharge. No pain. No significant abnormal bleeding. MUSCULOSKELETAL: No musculoskeletal pain; no joint swelling. NEUROLOGICAL: No headache. No neck pain. No syncope. No seizures. No dizziness. PSYCHIATRIC: Not anxious. No depression. No suicidal thoughts. No homicidal thoughts. SKIN: No rash. No lesions. No wounds. ENDOCRINE: No unexplained weight loss. No weight gain. HEMATOLOGIC/LYMPHATIC: No anemia. No purpura. No petechiae. No prolonged or excessive bleeding. No palpable lymph nodes. PHYSICAL EXAMINATION: VITAL SIGNS: Temperature 98, pulse 62, respiratory rate 16, blood pressure 122/65 and pulse ox 97%. HEENT: Head normocephalic, atraumatic. Eyes: Extraocular muscles are intact. Pupils are equal, round and reactive to light and accommodation. Ears: No lesions. Nose appeared normal. Throat: No exudate or erythema. NECK: Supple. No JVD, no carotid bruit. No lymphadenopathy or thyromegaly. LUNGS:Decreased breath sounds but clear to auscultation. Percussion note normal. Chest symmetrical. HEART: S1, S2, no S3. No murmurs. No cyanosis or clubbing. No ascites. Pulses: Dorsalis pedis and posterior tibial pulses +1 to +2 bilaterally. ABDOMEN: Soft. Nontender. Bowel sounds active. No CVA tenderness. No mass felt. EXTREMITIES: No edema. Full range of motion of all extremities, equal. NEUROLOGIC: No focal deficit. Cranial nerves II through XII are grossly intact. No headache, no double vision or headache. SKIN: Not dry. Intact. Turgor - normal. LYMPHATIC: No palpable lymph nodes/no lymphedema. MUSCULOSKELETAL: Normal joints with no swelling. Muscle tone is normal. LABS: Hgb 10, hct 29, WBC 3,000 normal differential, creatinine 0.6, BUN 9, potassium 3.5. Estimated GFR 85cc per minute. All telemetry strips are examined, sinus rhythm. No acute changes. Holter monitor on. ASSESSMENT: 1. Syncopal episode, etiology likely postural hypotension 2. No symptoms of TIA, she was worried about it 3. Neurological status normal PLAN: 1. Advised to drink a lot of fluids 2. Increase the salt intake 3. Cozaar has been reduced to 50mg a daily. 4. She is on 160mg Propranolol and Inderal for migraines and we will continue that. 5. We will echo in the morning with Carotid scan CONDITION: Stable. TIME SPENT: More than 30 minutes. Plan and coordination of the patient's care discussed in the presence of nurse. MOISES
--- NOTE | 2020-03-15 14:00 | DS ---
DATE OF SERVICE: 03/15/2020 FINAL DIAGNOSIS: 1. SYNCOPE 2. POSTURAL HYPOTENSION 3. HISTORY OF HYPERTENSION 4. ANXIETY 5. DYSLIPIDEMIA HISTORY: 6. DIVERTICULITIS 7. GASTROENTERITIS 8. HYPOKALEMIA 9. DEHYDRATION 10.ELEVATED LIVER FUNCTION R/T VIRAL ILLNESS, IMPROVING 11.HYPERTENSION 12.DYSLIPIDEMIA 13.HIATAL HERNIA 14.DIVERTICULOSIS 15.DEPRESSION / ANXIETY 16.HEADACHES, CHRONIC 17.C-DIFF SURGICAL HISTORY: 18.CHOLECYSTECTOMY 19.LEFT SHOULDER REPLACEMENT, 2011 LAST VITALS: Temp Pulse Resp BP Pulse Ox 97.8 F 57 L 19 152/87 H 98 03/15/20 05:52 03/15/20 08:26 03/15/20 08:00 03/15/20 08:26 03/15/20 05:52 DISCHARGE INSTRUCTION: DISCHARGE HOME TODAY, SUNDAY, MARCH 15, 2020. MD FOLLOW UP: SEE DR. ALVARADO/JAMIR FONTANA APRN IN THE OFFICE, SUNDAY, MARCH 22, 2020. CALL DR. ALVARADO'S OFFICE IF ANY CONCERNS OR QUESTIONS UNTIL THEN. PRESENT TO A LOCAL EMERGENCY ROOM IF ANY DISTRESS OR LIFE THREATENING CONCERNS. CODE STATUS: FULL CODE. TAKE THESE MEDICATIONS AT HOME: Citalopram Hydrobromide (Celexa) 40 mg PO DAILY [facility] Last Admin: 03/15/20 08:21 Dose: 40 mg Documented by: Hydrochlorothiazide (Hydrochlorothiazide) 12.5 mg PO DAILY [facility] Last Admin: 03/15/20 08:22 Dose: 12.5 mg Documented by: Loratadine (Claritin) 10 mg PO DAILY [facility] Last Admin: 03/15/20 08:21 Dose: 10 mg Documented by: Lorazepam (Ativan) 1 mg PO BEDTIME [facility] Last Admin: 03/14/20 20:53 Dose: 1 mg Documented by: Losartan Potassium (Cozaar) 50 mg PO DAILY [facility] --- (CHANGED) Last Admin: 03/15/20 08:22 Dose: 50 mg Documented by: Non-Formulary Medication (Uffddaaennm-Yjvorkdvy-Vbz C-Mn) 1 each PO DAILY [facility] Last Admin: 03/15/20 08:23 Dose: 1 each Documented by: Non-Formulary Medication (Propranolol [Inderal La]) 160 mg PO BEDTIME [facility] Last Admin: 03/14/20 20:53 Dose: 160 mg Documented by: Non-Formulary Medication (Mesalamine) 2.4 gm PO DAILYWM [facility] Last Admin: 03/15/20 08:24 Dose: 2.4 gm Documented by: Non-Formulary Medication (Cholecalciferol (Vitamin D3) [Vitamin D3]) 25 mcg PO DAILY [facility] Last Admin: 03/15/20 08:23 Dose: 25 mcg Documented by: Non-Formulary Medication (Rthwulcz-Vpe-Ymji-Fa-Lutein [Centrum Silver Women]) 1 tab PO DAILY [facility] Last Admin: 03/15/20 08:24 Dose: 1 tab Documented by: Omeprazole (Prilosec) 20 mg PO DAILY@0630 [facility] Last Admin: 03/15/20 06:11 Dose: 20 mg Documented by: Simvastatin (Zocor) 40 mg PO BEDTIME [facility] Last Admin: 03/14/20 20:53 Dose: 40 mg Documented by: Sumatriptan Succinate (Imitrex) 50 mg PO 1-2XD PRN PRN Reason: MIGRAINE Last Admin: 03/15/20 08:32 Dose: 50 mg Documented by: Tizanidine HCl (Zanaflex) 2 mg PO BEDTIME [facility] Last Admin: 03/14/20 20:53 Dose: 2 mg Documented by: Tramadol HCl (Ultram) 50 mg PO Q4H PRN PRN Reason: MODERATE PAIN Last Admin: 03/15/20 06:14 Dose: 50 mg Documented by: ALLERGIES: codeine Adverse Reaction (Verified 03/12/20 20:35) Latex, Natural Rubber Adverse Reaction (Verified 03/12/20 20:35) DISCONTINUED MEDICATIONS: Losartan Potassium (Cozaar) 100 mg PO DAILY [facility] NEW PRESCRIPTIONS: CHANGED: REDUCED LOSARTAN TO 50 MG DAILY SMOKING: NON- APPLICABLE DISEASE SPECIFIC EDUCATION: HYPERTENSION SYNCOPE COVID 19 LAB REVIEW: 03/15/20 04:50 03/15/20 04:50 03/15/20 04:50: Sodium 137.6, Potassium 3.56, Chloride 106.6, Carbon Dioxide 25.6, Anion Gap 8.96, BUN 7.9, Creatinine 0.57 L, Estimated GFR (MDRD) 104.00, BUN/Creatinine Ratio 13.85, Glucose 91.7, Calcium 9.13, Total Bilirubin 0.40, AST 27.7, ALT 15.7, Alkaline Phosphatase 52.0 L, Total Protein 6.17 L, Albumin 3.37 L, Globulin 2.80, Albumin/Globulin Ratio 1.20 03/15/20 04:50: WBC 3.41 L, RBC 3.42 L, Hgb 11.0 L, Hct 31.9 L, MCV 93.3, MCH 32.2 H, MCHC 34.5, RDW Coeff of Dimas 12.5, Plt Count 126 L, Immature Gran % (Auto) 0.3, Neut % (Auto) 50.5, Lymph % (Auto) 34.3, Chambers % (Auto) 11.1 H, Eos % (Auto) 2.9, Baso % (Auto) 0.9, Neut # (Auto) 1.7 L, Lymph # (Auto) 1.2, Chambers # (Auto) 0.4, Eos # (Auto) 0.1, Baso # (Auto) 0.0, Immature Gran # (Auto) 0.0 DIET: REGULAR , EAT NUTRITIOUS FOODS AND DRINK ADEQUATE AMOUNT AND PROPER FLUIDS ACTIVITY: UP TOLERATED. CHANGE POSITIONS SLOWLY. FREQUENT REST PERIODS WHILE UP HOSPITAL COURSE: The patient was hospitalized with near syncopal episode. The patient's blood pressure was low. Likely the patient has postural hypotension. The patient's neurological status remains stable throughout the stay in the hospital. Carotid scan was unremarkable. Echocardiogram was normal. Telemetry and Holter showed heart rate up to 40 per minute at night, normal blood pressure. The heart rate average was close to 60 per minute. She is long acting Propranolol for a long time for migraine headaches, she takes 160mg at night. We will continue to monitor her blood pressure. She doesn't have symptomatic bradycardia. Cardiovascular status was stable. She takes her blood pressure at home multiple times. She was advised to take her blood pressure no more once a week. As long as the blood pressure is within normal range advised to drink a lot fluid and eat a little bit more salt. The patient at the time of discharge is stable. TIME SPENT: More than 60 minutes. MOISES
--- NOTE | 2020-03-16 14:28 | HP ---
DATE OF SERVICE: 03/13/20 HISTORY OF PRESENT ILLNESS: 74-year-old white female was brought into the ER per EMS with complaints of syncope. She reports that she just felt like her body was melting and she sank to the floor. She denies any loss of consciousness. She does report that this has happened once previously in the week. Her blood pressure has been very labile in the past couple of months. We have seen her at the office for complaints of hypertension as well as she was seen in the ER on 02/01. The patient has a history of anxiety and is also concerned that she may have possibly had a TIA. She will be admitted for further evaluation and management of syncopal episode. PAST MEDICAL HISTORY: Hypertension Anxiety Dyslipidemia Migraines GERD Degenerative joint disease of the spine Diverticulosis History of C. diff Ulcerative colitis TMJ Scoliosis Depression Chronic pain PAST SURGICAL HISTORY: Left shoulder replacement REVIEW OF SYSTEMS: CONSTITUTIONAL: Weakness. No night sweats. No fatigue, malaise, lethargy. No fever or chills. HEENT: Eyes: No visual changes. No eye pain. No eye discharge. ENT: No runny nose. No epistaxis. No sinus pain. No sore throat. No odynophagia. No ear pain. No congestion. RESPIRATORY: No cough, no congestion. No hemoptysis. No shortness of breath. CARDIOVASCULAR: No angina symptoms. No CHF symptoms. No atypical chest pain for CAD. No palpitations. No PND. No orthopnea. GASTROINTESTINAL: No abdominal pain. No nausea or vomiting. No diarrhea or constipation. No hematemesis. No hematochezia. GENITOURINARY: No urgency. No frequency. No dysuria. No hematuria. No obstructive symptoms. No discharge. No pain. No significant abnormal bleeding. MUSCULOSKELETAL: No musculoskeletal pain. No joint swelling. No arthritis. NEUROLOGICAL: Syncope. No headache. No neck pain. No seizures. No dizziness. PSYCHIATRIC: Not anxious. No depression. No suicidal thoughts. No homicidal thoughts. SKIN: No rash. No lesions. No wounds. ENDOCRINE: No unexplained weight loss. No weight gain. HEMATOLOGIC/LYMPHATIC: No anemia. No purpura. No petechiae. No prolonged or excessive bleeding. No palpable lymph nodes. PERSONAL/FAMILY/SOCIAL HISTORY: She lives alone. She is . She is a nonsmoker and denies any alcohol use. MEDICATIONS: Propranolol 160 mg p.o. bedtime Lorazepam 1 mg p.o. bedtime Sumatriptan 50 mg p.o. p.r.n. Simvastatin 40 mg p.o. bedtime Citalopram 40 mg p.o. daily Loratadine 10 mg p.o. daily Wwjgashpgsi-snhhfggeh-rxe C-Mn [id number] mg one each p.o. daily Tramadol 50 mg p.o. q.4h p.r.n. Omeprazole 20 mg p.o. daily Tizanidine 2 mg p.o. bedtime Losartan 100 mg p.o. daily Hydrochlorothiazide 12.5 mg p.o. daily Mesalamine 2.4 gm p.o. daily Multivitamins one tab p.o. only Cholecalciferol 25 mcg p.o. daily ALLERGIES: CODEINE, LATEX, NATURAL RUBBER PHYSICAL EXAMINATION: VITAL SIGNS: Temperature 97.5, pulse 58, respirations 18, blood pressure 76/52, pulse ox 99%. HEENT: Head normocephalic, atraumatic. Eyes: Extraocular muscles are intact. Pupils are equal, round and reactive to light and accommodation. Ears: No lesions. Nose appeared normal. Throat: No exudate or erythema. NECK: Supple. No JVD, no carotid bruit. No lymphadenopathy or thyromegaly. LUNGS: Clear to auscultation. Percussion note normal. Chest symmetrical. HEART: S1, S2, no S3. No murmur. No cyanosis or clubbing. No ascites. Pulses: Dorsalis pedis and posterior tibial pulses +1 to +2 bilaterally. ABDOMEN: Soft. Nontender. Bowel sounds active. No CVA tenderness. No mass felt. EXTREMITIES: No edema. Full range of motion of all extremities, equal. NEUROLOGIC: No focal deficit. Cranial nerves II through XII are grossly intact. No headache, no double vision or headache. SKIN: Not dry. Intact. Turgor - normal. LYMPHATIC: No palpable lymph nodes/no lymphedema. MUSCULOSKELETAL: Normal joints with no swelling. Muscle tone is normal. LABS: White blood count 3.96, hemoglobin 10.6, hematocrit 29.2, platelet count 121. Sodium 133, potassium 3.42, BUN 13, creatinine 0.82, AST 35.9, ALT 14.9. Chest x-ray showed no acute pulmonary disease and granulomatous change. ASSESSMENT: 1. SYNCOPE 2. POSTURAL HYPOTENSION 3. HISTORY OF HYPERTENSION 4. ANXIETY 5. DYSLIPIDEMIA PLAN: 1. Admit 2. Routine telemetry orders 3. CBC, CMP daily 4. Continue all home medications 5. NS 75 mL/hr IV 6. Fall risk precautions 7. 2D echo 8. Carotid ultrasound 9. Check orthostatic blood pressures 10. Holter monitor 11. Regular diet The patient was seen and examined with Dr. Potter. Plan was discussed. TIME SPENT: More than 70 minutes. MOISES
--- NOTE | 2020-03-16 14:44 | PN ---
DATE OF SERVICE: 03/15/2020 SUBJECTIVE: The discharge note is the same as what has been dictated by Nurse Practitioner. The patient was seen and examined with the Nurse Practitioner. The patient's is up and about. Echo report discussed with the patient. REVIEW OF SYSTEMS: CONSTITUTIONAL: No night sweats. No fatigue, malaise, lethargy. No fever or chills. HEENT: Eyes: No visual changes. No eye pain. No eye discharge. ENT: No runny nose. No epistaxis. No sinus pain. No sore throat. No odynophagia. No congestion. RESPIRATORY: No cough, no congestion. No hemoptysis. No shortness of breath. CARDIOVASCULAR: No angina symptoms. No CHF symptoms. No atypical chest pain for CAD. No palpitations. No PND. No orthopnea. GASTROINTESTINAL: No abdominal pain. No nausea or vomiting. No diarrhea or constipation. No hematemesis. No hematochezia. GENITOURINARY: No urgency. No frequency. No dysuria. No hematuria. No obstructive symptoms. No discharge. No pain. No significant abnormal bleeding. MUSCULOSKELETAL: No musculoskeletal pain; no joint swelling. NEUROLOGICAL: No headache. No neck pain. No syncope. No seizures. No dizziness. PSYCHIATRIC: Not anxious. No depression. No suicidal thoughts. No homicidal thoughts. SKIN: No rash. No lesions. No wounds. ENDOCRINE: No unexplained weight loss. No weight gain. HEMATOLOGIC/LYMPHATIC: No anemia. No purpura. No petechiae. No prolonged or excessive bleeding. No palpable lymph nodes. PHYSICAL EXAMINATION: HEENT: Head normocephalic, atraumatic. Eyes: Extraocular muscles are intact. Pupils are equal, round and reactive to light and accommodation. Ears: No lesions. Nose appeared normal. Throat: No exudate or erythema. NECK: Supple. No JVD, no carotid bruit. No lymphadenopathy or thyromegaly. LUNGS: Clear to auscultation. Percussion note normal. Chest symmetrical. HEART: S1, S2, no S3. No murmurs. No cyanosis or clubbing. No ascites. Pulses: Dorsalis pedis and posterior tibial pulses +1 to +2 bilaterally. ABDOMEN: Soft. Nontender. Bowel sounds active. No CVA tenderness. No mass felt. EXTREMITIES: No edema. Full range of motion of all extremities, equal. NEUROLOGIC: No focal deficit. Cranial nerves II through XII are grossly intact. No headache, no double vision or headache. SKIN: Not dry. Intact. Turgor - normal. LYMPHATIC: No palpable lymph nodes/no lymphedema. MUSCULOSKELETAL: Normal joints with no swelling. Muscle tone is normal. TIME SPENT: More than 30 minutes. Plan and coordination of the patient's care discussed in the presence of nurse. MOISES
--- NOTE | 2020-03-16 14:45 | PN ---
03/13/2020: Level 5 03/14/2020: Intermediate 03/15/2020: D as in discharge MTDD
--- NOTE | 2020-03-18 13:37 | CM.DICTOOL ---
ADMISSION: 03/13/20 00:00 DISCHARGE: MARCH 15, 2020 DATE OF SERVICE: 03/15/20 FINAL DIAGNOSIS SYNCOPE POSTURAL HYPOTENSION HISTORY OF HYPERTENSION ANXIETY DYSLIPIDEMIA HX: DIVERTICULITIS GASTROENTERITIS HYPOKALEMIA DEHYDRATION ELEVATED LIVER FUNCTION R/T VIRAL ILLNESS, IMPROVING HYPERTENSION DYSLIPIDEMIA HIATAL HERNIA DIVERTICULOSIS DEPRESSION / ANXIETY HEADACHES, CHRONIC C-DIFF SURGICAL HISTORY: CHOLECYSTECTOMY LEFT SHOULDER REPLACEMENT, 2011 LAST VITALS Temp Pulse Resp BP Pulse Ox 97.8 F 57 L 19 152/87 H 98 03/15/20 05:52 03/15/20 08:26 03/15/20 08:00 03/15/20 08:26 03/15/20 05:52 TAKE THESE MEDICATIONS AT HOME Citalopram Hydrobromide (Celexa) 40 mg PO DAILY [facility] Last Admin: 03/15/20 08:21 Dose: 40 mg Documented by: Hydrochlorothiazide (Hydrochlorothiazide) 12.5 mg PO DAILY [facility] Last Admin: 03/15/20 08:22 Dose: 12.5 mg Documented by: Loratadine (Claritin) 10 mg PO DAILY [facility] Last Admin: 03/15/20 08:21 Dose: 10 mg Documented by: Lorazepam (Ativan) 1 mg PO BEDTIME [facility] Last Admin: 03/14/20 20:53 Dose: 1 mg Documented by: Losartan Potassium (Cozaar) 50 mg PO DAILY [facility] --- (CHANGED) Last Admin: 03/15/20 08:22 Dose: 50 mg Documented by: Non-Formulary Medication (Lmwklhsvaxi-Gkeasiyrt-Wdc C-Mn) 1 each PO DAILY [facility] Last Admin: 03/15/20 08:23 Dose: 1 each Documented by: Non-Formulary Medication (Propranolol [Inderal La]) 160 mg PO BEDTIME [facility] Last Admin: 03/14/20 20:53 Dose: 160 mg Documented by: Non-Formulary Medication (Mesalamine) 2.4 gm PO DAILYWM [facility] Last Admin: 03/15/20 08:24 Dose: 2.4 gm Documented by: Non-Formulary Medication (Cholecalciferol (Vitamin D3) [Vitamin D3]) 25 mcg PO DAILY [facility] Last Admin: 03/15/20 08:23 Dose: 25 mcg Documented by: Non-Formulary Medication (Kxnxbnis-Hcr-Nukz-Fa-Lutein [Centrum Silver Women]) 1 tab PO DAILY [facility] Last Admin: 03/15/20 08:24 Dose: 1 tab Documented by: Omeprazole (Prilosec) 20 mg PO DAILY@0630 [facility] Last Admin: 03/15/20 06:11 Dose: 20 mg Documented by: Simvastatin (Zocor) 40 mg PO BEDTIME [facility] Last Admin: 03/14/20 20:53 Dose: 40 mg Documented by: Sumatriptan Succinate (Imitrex) 50 mg PO 1-2XD PRN PRN Reason: MIGRAINE Last Admin: 03/15/20 08:32 Dose: 50 mg Documented by: Tizanidine HCl (Zanaflex) 2 mg PO BEDTIME [facility] Last Admin: 03/14/20 20:53 Dose: 2 mg Documented by: Tramadol HCl (Ultram) 50 mg PO Q4H PRN PRN Reason: MODERATE PAIN Last Admin: 03/15/20 06:14 Dose: 50 mg Documented by: ALLERGIES codeine Adverse Reaction (Verified 03/12/20 20:35) Latex, Natural Rubber Adverse Reaction (Verified 03/12/20 20:35) DISCONTINUED MEDICATIONS Losartan Potassium (Cozaar) 100 mg PO DAILY [facility] NEW PRESCRIPTIONS: CHANGED: REDUCED LOSARTAN TO 50 MG DAILY SMOKING: NON- APPLICABLE DISEASE SPECIFIC EDUCATION: HYPERTENSION SYNCOPE COVID 19 LAB REVIEW: 03/15/20 04:50 03/15/20 04:50 03/15/20 04:50: Sodium 137.6, Potassium 3.56, Chloride 106.6, Carbon Dioxide 25.6, Anion Gap 8.96, BUN 7.9, Creatinine 0.57 L, Estimated GFR (MDRD) 104.00, BUN/Creatinine Ratio 13.85, Glucose 91.7, Calcium 9.13, Total Bilirubin 0.40, AST 27.7, ALT 15.7, Alkaline Phosphatase 52.0 L, Total Protein 6.17 L, Albumin 3.37 L, Globulin 2.80, Albumin/Globulin Ratio 1.20 03/15/20 04:50: WBC 3.41 L, RBC 3.42 L, Hgb 11.0 L, Hct 31.9 L, MCV 93.3, MCH 32.2 H, MCHC 34.5, RDW Coeff of Dimas 12.5, Plt Count 126 L, Immature Gran % (Auto) 0.3, Neut % (Auto) 50.5, Lymph % (Auto) 34.3, [place] % (Auto) 11.1 H, Eos % (Auto) 2.9, Baso % (Auto) 0.9, Neut # (Auto) 1.7 L, Lymph # (Auto) 1.2, [place] # (Auto) 0.4, Eos # (Auto) 0.1, Baso # (Auto) 0.0, Immature Gran # (Auto) 0.0 PLAN: DISCHARGE HOME TODAY, SUNDAY, MARCH 15, 2020 DIET: REGULAR , EAT NUTRITIOUS FOODS AND DRINK ADEQUATE AMOUNT AND PROPER FLUIDS ACTIVITY: UP TOLERATED. CHANGE POSITIONS SLOWLY. FREQUENT REST PERIODS WHILE UP FOLLOW UP: SEE DR. ALVARADO/JAMIR FONTANA APRN IN THE OFFICE, SUNDAY, MARCH 22, [address] WELSH OFFICE IF ANY CONCERNS OR QUESTIONS UNTIL THEN PRESENT TO A LOCAL EMERGENCY ROOM IF ANY DISTRESS OR LIFE THREATENING CONCERNS CODE STATUS: FULL CODE MRS. MO REMAINS ALERT AND ORIENTED X 4. IS PLEASANT AND TALKATIVE. DENIES ANY PAIN OR WEAKNESS. IS UP AND WALKING INDEPENDENTLY. INTAKE OF FLUIDS AND NUTRITION HAS BEEN FAIR. NO REPORTS OF ANY PROBLEMS WITH SWALLOWING OR NAUSEA. CONTINENT OF BOWEL AND BLADDER. LAST BM 03/14/2020. LIVES ALONE AND DENIES ANY NEEDS FOR ASSISTANCE OR DME IN THE HOME. MD JAMIR GARCIA APRN
== END 2020-03-15 13:03 | disposition home or self-care (01) | DRG 312 ==
LOC: ED 20:25 → MEDSURG B 03-13
PROVIDERS: ADMIT Internal Medicine; ATTEND Internal Medicine

== ENCOUNTER 2020-08-29 10:18 | Inpatient (IN) ==
[2020-08-29 10:31] VITALS: BMI 23.9
--- NOTE | 2020-08-29 11:12 | ED.PDOC ---
General ED Provider: Dr. 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 Time Seen by Physician: 13:25 Mode of Arrival: Walk-In Information Source: Patient Primary Care Provider: FAISAL ALVARADO Nursing and Triage Documentation Reviewed and Agree: Yes Does patient meet sepsis criteria?: No System Inflammatory Response Syndrome: Not Applicable Sepsis Protocol: For patient's 13 years and over: Temp is 96.8 and below OR 101 and greater Pulse >90 BPM Resp >20/minute Acutely Altered Mental Status Are patient's symptoms suggestive of a new infection, such as: -Pneumonia -Skin, Soft Tissue -Endocarditis -UTI -Bone, Joint Infection -Implantable Device -Acute Abdominal Infection -Wound Infection -Meningitis -Blood Stream Catheter Infection -Unknown Miscellaneous Complaint Exam Physical Examination Complaint/Exam Onset/Duration: 1. 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 dark urine Symptoms Are: Resolved Timing: Intermittent Episodes Lasting: Minutes Initial Severity: Moderate Current Severity: Mild Location: cerebral; bladder Character: confusion (fleeting); painless urination Aggravating: nothing Alleviating: nothing Associated Signs and Symptoms: history of LOC event February 2020 Related History: Reports No other known history Specific Findings: age related mental changes Differential Diagnoses: possible TIA Review of Systems Review Of Systems Constitutional: Reports No symptoms Eyes: Reports No symptoms Ears, Nose, Mouth, Throat: Reports No symptoms Respiratory: Reports No symptoms Cardiac: Reports No symptoms GI: Reports No symptoms : Reports No symptoms Musculoskeletal: Reports No symptoms Neurological: Reports No symptoms Endocrine: Reports No symptoms Hematologic/Lymphatic: Reports No symptoms All Other Systems: Reviewed and Negative [facility] Medical History Cholecystectomy planned Colitis Diverticulosis GERD (gastroesophageal reflux disease) Hyperlipidemia Hypertension Family History FATHER Cancer of lung BROTHER FH: kidney cancer Diabetes Mother Stroke Social History Smoking and tobacco status: Never smoker Alcohol intake: never Substance use type: does not use Jenn/worship: Prespy. Special jenn needs: No Agree to transfusion: Yes Household members: none Housing: house Lives independently: Yes Number of children: 4 Highest education level completed: Associate degree: academic program Financial difficulty paying for basics: not very hard History of recent travel: No Sexually active: No Do you think of yourself as: straight/heterosexual Current gender identity: female Current diet type/program: other Well-balanced diet: daily Caffeine: Yes Eating out: rarely or never Reads food labels: seldom or never Water heater temperature set < 120 degrees: Yes Working smoke detector in home: Yes Fire extinguisher in home: Yes Carbon monoxide detector in home: Yes Firearms in home: No What type of physical activity do you participate in?: walking Physical activity functional status: independent ambulation Surgical History (Updated 08/29/20 @ 15:45 by JORGE SCHROEDER RN) Hx of shoulder replacement Hx of tubal ligation Female Reproductive History Menstrual Hx Hysterectomy: No Hx Tubal Ligation: Yes Physical Exam Physical Exam Appearance: Reports Well-appearing Ill-appearing: None Pain Distress: None Eyes: Reports JENNYFER and EOMI ENT: Reports Ears normal, Nose normal and Oropharynx normal Neck: Supple Respiratory: Reports Airway patent, Breath sounds clear and Breath sounds equal Cardiovascular: Reports RRR and Pulses normal GI/: Reports Soft, Nontender and Bowel sounds normal Musculoskeletal: Reports Normal strength and ROM intact Skin: Reports Warm, Dry and Pale Neurological: Reports Sensation intact, Motor intact, Reflexes intact and Cranial nerves intact Psychiatric: Reports Other Interpretation Radiology Interpretation Radiology Interpretation By: Radiologist Radiology Results: No acute changes Exam Interpreted: CT Scan Xray Comments: Head CT: stable chronic small vessel changes and atrophy. Radiology Interpretation By: Radiologist Radiology Results: No acute changes Exam Interpreted: CT Scan Xray Comments: Abd / Pelvis CT: no abnormalities Kidneys Physician Notification Case Discussed Physician Notified: Dr. Velma Alvarado Time of Notification: 13:20 Critical Care Note Critical Care Note Total Critical Care Time (mins): 0 Course Course Hematology/Chemistry: 08/30/20 04:10 08/30/20 04:10 Orders, Labs, Meds: Lab Review 08/29/20 08/29/20 08/29/20 11:08 14:00 14:00 WBC 6.43 RBC 3.78 L Hgb 12.1 Hct 35.1 L MCV 92.9 MCH 32.0 H MCHC 34.5 RDW Coeff of Dimas 12.7 Plt Count 171 Immature Gran % (Auto) 0.2 Neut % (Auto) 63.8 Lymph % (Auto) 24.0 [place] % (Auto) 9.8 Eos % (Auto) 1.7 Baso % (Auto) 0.5 Neut # (Auto) 4.1 Lymph # (Auto) 1.5 [place] # (Auto) 0.6 Eos # (Auto) 0.1 Baso # (Auto) 0.0 Immature Gran # (Auto) 0.0 PT 9.9 INR 1.01 Sodium Potassium Chloride Carbon Dioxide Anion Gap BUN Creatinine Estimated GFR (MDRD) BUN/Creatinine Ratio Glucose Calcium Total Bilirubin AST ALT Alkaline Phosphatase Total Protein Albumin Globulin Albumin/Globulin Ratio Urine Color Yellow Urine Clarity Clear Urine pH 5.5 Ur Specific [place] <=1.005 Urine Protein Negative Urine Glucose (UA) Negative Urine Ketones Negative Urine Blood Negative Urine Nitrite Negative Urine Bilirubin Negative Urine Urobilinogen 0.2 Ur Leukocyte Esterase Negative 08/29/20 14:00 WBC RBC Hgb Hct MCV MCH MCHC RDW Coeff of Dimas Plt Count Immature Gran % (Auto) Neut % (Auto) Lymph % (Auto) [place] % (Auto) Eos % (Auto) Baso % (Auto) Neut # (Auto) Lymph # (Auto) [place] # (Auto) Eos # (Auto) Baso # (Auto) Immature Gran # (Auto) PT INR Sodium 135.7 Potassium 4.14 Chloride 98.4 Carbon Dioxide 31.0 H Anion Gap 10.44 BUN 12.1 Creatinine 0.84 Estimated GFR (MDRD) 66.00 BUN/Creatinine Ratio 14.40 Glucose 87.3 Calcium 9.84 Total Bilirubin 0.84 AST 40.0 H ALT 17.4 Alkaline Phosphatase 49.9 L Total Protein 7.47 Albumin 4.40 Globulin 3.07 Albumin/Globulin Ratio 1.43 Urine Color Urine Clarity Urine pH Ur Specific [place] Urine Protein Urine Glucose (UA) Urine Ketones Urine Blood Urine Nitrite Urine Bilirubin Urine Urobilinogen Ur Leukocyte Esterase Orders Category Date Time Status ADMIT PATIENT INPATIENT .TO [facility] (MONITORED BED) ADMISSION 08/29/20 13:42 Active EKG-(ED ONLY) Stat CARDIO 08/29/20 13:49 Completed EKG-(IP & OP ONLY) DAILY CARDIO 08/30/20 06:00 Completed EKG-(IP & OP ONLY) DAILY CARDIO 08/31/20 06:00 Ordered ACTIVITY .Early Mobilization for VTE Prevention CARE 08/29/20 13:45 Completed BLOOD GLUCOSE MONITORING 0630,1100,1700,2100 CARE 08/29/20 13:47 Active INTAKE & OUTPUT Q8HR CARE 08/29/20 13:45 Active NEUROLOGICAL CHECKS Q8HR CARE 08/29/20 13:49 Active NPO REMINDER: IMAGING ONCE CARE 08/29/20 11:02 Completed TELEMETRY MONITORING TELE CARE 08/29/20 13:42 Active VITAL SIGNS Q4HR CARE 08/29/20 13:45 Completed VITAL SIGNS Q8HR CARE 08/29/20 13:45 Active CBC W/ AUTO DIFF DAILY@0600 LAB 08/30/20 04:10 Completed CBC W/ AUTO DIFF DAILY@0600 LAB 08/31/20 06:00 Ordered COMPREHENSIVE METABOLIC PANEL DAILY@0600 LAB 08/31/20 06:00 Ordered CREATINE KINASE Q8H LAB 08/29/20 20:00 Completed CREATINE KINASE Q8H LAB 08/30/20 04:10 Completed PT WITH INR DAILY@0600 LAB 08/30/20 04:10 Completed PT WITH INR DAILY@0600 LAB 08/31/20 06:00 Ordered TROPONIN I Q8H LAB 08/29/20 20:00 Completed TROPONIN I Q8H LAB 08/30/20 04:10 Completed TROPONIN I Stat LAB 08/29/20 14:14 Completed UA [URINALYSIS C & S IF INDICATED] Stat LAB 08/29/20 11:08 Completed RESUSCITATION STATUS Routine OTHERS 08/29/20 13:[address] ABDOMEN/PELVIS WO CONTRAST Stat RADS 08/29/20 11:[address] HEAD W/O CONTRAST Stat RADS 08/29/20 11:10 Completed Medications Generic Name Dose Route Start Last Admin Trade Name Jennifer PRN Reason Stop Dose Admin Acetaminophen 650 mg 08/29/20 16:44 Acetaminophen 325 Mg Tablet PO Q4H PRN Headache Aspirin 81 mg 08/30/20 08:30 Aspirin 81 Mg Tablet.Dr PO DAILYWM BRANDON Atropine Sulfate 0.5 mg 08/29/20 16:44 Atropine Sulfate Inj 1 Mg/10 Ml Disp.Syrin IVP ONCE PRN Symptomatic Bradycardia Citalopram Hydrobromide 40 mg 08/30/20 09:00 Citalopram Hydrobromide 20 Mg Tablet PO DAILY BRANDON Clonidine 0.1 mg 08/29/20 16:31 Clonidine Hcl 0.1 Mg Tablet PO BID PRN HYPERTENSION Hydrochlorothiazide 12.5 mg 08/30/20 09:00 Hydrochlorothiazide 25 Mg Tablet PO DAILY BRANDON Hydroxyzine HCl 25 mg 08/29/20 16:44 Hydroxyzine Hcl 25 Mg/Ml Vial IM Q4H PRN Nausea/Vomiting/Restlessness Loratadine 10 mg 08/30/20 09:00 Loratadine 10 Mg Tablet PO DAILY BRANDON Lorazepam 1 - 2 mg 08/29/20 16:31 08/29/20 21:10 Lorazepam 1 Mg Tablet PO 1 mg BEDTIME PRN Administration Restlessness Losartan Potassium 50 mg 08/30/20 09:00 Losartan Potassium 25 Mg Tablet PO DAILY BRANDON Multivitamins 1 tab 08/30/20 09:00 Multivitamin 1 Tab PO DAILY BRANDON Nitroglycerin 0.4 mg 08/29/20 16:44 Nitroglycerin 0.4 Mg Tab.Subl SL Q5MIN X 3 DOSES PRN Chest Pain Non-Formulary Medication 2.4 gm 08/30/20 09:00 Mesalamine PO DAILY BRANDON Non-Formulary Medication 160 mg 08/29/20 21:00 Propranolol [Inderal La] PO BEDTIME BRANDON Omeprazole 20 mg 08/30/20 09:00 Omeprazole 20 Mg Capsule.Dr PO QDAC BRANDON Simvastatin 40 mg 08/29/20 21:00 08/29/20 20:48 Simvastatin 40 Mg Tablet PO 40 mg BEDTIME BRANDON Administration Sodium Chloride 1 syr 08/29/20 21:00 08/30/20 04:42 0.9% Sodium Chloride 10 Ml Disp.Syrin IVF Not Given Q8HR BRANDON Sumatriptan Succinate 50 mg 08/29/20 16:31 Sumatriptan Succinate 25 Mg Tablet PO PRN PRN MIGRAINE Timolol Maleate 1 drop 08/29/20 21:00 08/29/20 20:50 Timolol Maleate 5 Ml Opth Sonya EACHEYE 1 drop BID BRANDON Administration Tramadol HCl 50 mg 08/29/20 16:31 08/29/20 21:10 Tramadol Hcl 50 Mg Tablet PO 50 mg Q4H PRN Administration MODERATE PAIN Vital Signs: Temp Pulse Resp BP Pulse Ox 08/29/20 10:19 96.8 F L 62 17 149/85 H 98 Discharge Plan Discharge Patient Disposition: ADMITTED INPATIENT Discharge Problem: Brain TIA ED Provider: MATA RAMOS Condition: Good Physician Progress Note: 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 Cooperative patient; however, affect blunted. ........ 1320: discussed pt w Dr. Velma Alvarado. Pt to be admitted to telemetry for cardiac w/u and neuro checks. []
[2020-08-29 11:13] LABS: BILIRUBIN,URINE Negative (NEGATIVE); CLARITY,URINE Clear (CLEAR); COLOR,URINE Yellow (YELLOW); GLUCOSE, URINE (UA) Negative (NEGATIVE); KETONES,URINE Negative (NEGATIVE); LEUKOCYTE ESTERASE ,URINE Negative (NEGATIVE); NITRITE,URINE Negative (NEGATIVE); PH,URINE 5.5 (5-9); PROTEIN,URINE Negative (NEGATIVE); URINE, BLOOD Negative (NEGATIVE); UROBILINOGEN,URINE 0.2 (0.2)
--- NOTE | 2020-08-29 11:15 | ED.PDOC ---
General ED Provider: Dr. 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; c/o blood in urine Time Seen by Physician: 10:25 Mode of Arrival: Walk-In Information Source: Patient Primary Care Provider: FAISAL ALVARADO Nursing and Triage Documentation Reviewed and Agree: Yes Does patient meet sepsis criteria?: No System Inflammatory Response Syndrome: Not Applicable Sepsis Protocol: For patient's 13 years and over: Temp is 96.8 and below OR 101 and greater Pulse >90 BPM Resp >20/minute Acutely Altered Mental Status Are patient's symptoms suggestive of a new infection, such as: -Pneumonia -Skin, Soft Tissue -Endocarditis -UTI -Bone, Joint Infection -Implantable Device -Acute Abdominal Infection -Wound Infection -Meningitis -Blood Stream Catheter Infection -Unknown Miscellaneous Complaint Exam Physical Examination Complaint/Exam Onset/Duration: "lost words" this am. Blood in urine this am. Symptoms Are: Resolved Timing: Intermittent Episodes Lasting: Minutes Initial Severity: Mild Current Severity: Mild Location: brain; kidney Character: painless Aggravating: nothing Alleviating: nothing Associated Signs and Symptoms: painless hematuria. Losing words resolved. Specific Findings: pt lucid and verbal in ER. Urine dark flor. February 2020 pt found unconscious. In-pt at [facility] x 5 days, no recollection x 5 days. Differential Diagnoses: TIA, structural anomaly Review of Systems Review Of Systems Constitutional: Reports No symptoms Eyes: Reports No symptoms Ears, Nose, Mouth, Throat: Reports No symptoms Respiratory: Reports No symptoms Cardiac: Reports No symptoms GI: Reports No symptoms : Reports No symptoms Musculoskeletal: Reports No symptoms Skin: Reports No symptoms Neurological: Reports No symptoms Endocrine: Reports No symptoms Hematologic/Lymphatic: Reports No symptoms All Other Systems: Reviewed and Negative [facility] Medical History Cholecystectomy planned Colitis Diverticulosis GERD (gastroesophageal reflux disease) Hyperlipidemia Hypertension Family History FATHER Cancer of lung BROTHER FH: kidney cancer Diabetes Mother Stroke Social History Smoking and tobacco status: Never smoker Alcohol intake: never Substance use type: does not use Jenn/bahai: Prespy. Special jenn needs: No Agree to transfusion: Yes Household members: none Housing: house Lives independently: Yes Number of children: 4 Highest education level completed: Associate degree: academic program Financial difficulty paying for basics: not very hard History of recent travel: No Sexually active: No Do you think of yourself as: straight/heterosexual Current gender identity: female Current diet type/program: other Well-balanced diet: daily Caffeine: Yes Eating out: rarely or never Reads food labels: seldom or never Water heater temperature set < 120 degrees: Yes Working smoke detector in home: Yes Fire extinguisher in home: Yes Carbon monoxide detector in home: Yes Firearms in home: No What type of physical activity do you participate in?: walking Physical activity functional status: independent ambulation Surgical History (Updated 08/29/20 @ 15:45 by JORGE SCHROEDER RN) Hx of shoulder replacement Hx of tubal ligation Female Reproductive History Menstrual Hx Hysterectomy: No Hx Tubal Ligation: Yes Physical Exam Physical Exam Appearance: Reports Well-appearing Ill-appearing: None Pain Distress: None Eyes: Reports JENNYFER, EOMI and Conjunctiva clear ENT: Reports Ears normal, Nose normal and Oropharynx normal Neck: Supple Respiratory: Reports Airway patent, Breath sounds clear and Breath sounds equal Cardiovascular: Reports RRR and Pulses normal GI/: Reports Soft and Nontender Musculoskeletal: Reports Normal strength and ROM intact Skin: Reports Warm, Dry and Normal color Neurological: Reports Sensation intact, Motor intact, Reflexes intact and Cranial nerves intact Psychiatric: Reports Affect appropriate and Mood appropriate Interpretation Radiology Interpretation Radiology Interpretation By: Radiologist Radiology Results: No acute changes Exam Interpreted: CT Scan Xray Comments: No renal abnormalities on CT Critical Care Note Critical Care Note Total Critical Care Time (mins): 0 Course Course Hematology/Chemistry: 08/30/20 04:10 08/30/20 04:10 Orders, Labs, Meds: Lab Review 08/29/20 08/29/20 08/29/20 11:08 14:00 14:00 WBC 6.43 RBC 3.78 L Hgb 12.1 Hct 35.1 L MCV 92.9 MCH 32.0 H MCHC 34.5 RDW Coeff of Dimas 12.7 Plt Count 171 Immature Gran % (Auto) 0.2 Neut % (Auto) 63.8 Lymph % (Auto) 24.0 [place] % (Auto) 9.8 Eos % (Auto) 1.7 Baso % (Auto) 0.5 Neut # (Auto) 4.1 Lymph # (Auto) 1.5 [place] # (Auto) 0.6 Eos # (Auto) 0.1 Baso # (Auto) 0.0 Immature Gran # (Auto) 0.0 PT 9.9 INR 1.01 Sodium Potassium Chloride Carbon Dioxide Anion Gap BUN Creatinine Estimated GFR (MDRD) BUN/Creatinine Ratio Glucose Calcium Total Bilirubin AST ALT Alkaline Phosphatase Total Protein Albumin Globulin Albumin/Globulin Ratio Urine Color Yellow Urine Clarity Clear Urine pH 5.5 Ur Specific [place] <=1.005 Urine Protein Negative Urine Glucose (UA) Negative Urine Ketones Negative Urine Blood Negative Urine Nitrite Negative Urine Bilirubin Negative Urine Urobilinogen 0.2 Ur Leukocyte Esterase Negative 08/29/20 14:00 WBC RBC Hgb Hct MCV MCH MCHC RDW Coeff of Dimas Plt Count Immature Gran % (Auto) Neut % (Auto) Lymph % (Auto) [place] % (Auto) Eos % (Auto) Baso % (Auto) Neut # (Auto) Lymph # (Auto) [place] # (Auto) Eos # (Auto) Baso # (Auto) Immature Gran # (Auto) PT INR Sodium 135.7 Potassium 4.14 Chloride 98.4 Carbon Dioxide 31.0 H Anion Gap 10.44 BUN 12.1 Creatinine 0.84 Estimated GFR (MDRD) 66.00 BUN/Creatinine Ratio 14.40 Glucose 87.3 Calcium 9.84 Total Bilirubin 0.84 AST 40.0 H ALT 17.4 Alkaline Phosphatase 49.9 L Total Protein 7.47 Albumin 4.40 Globulin 3.07 Albumin/Globulin Ratio 1.43 Urine Color Urine Clarity Urine pH Ur Specific [place] Urine Protein Urine Glucose (UA) Urine Ketones Urine Blood Urine Nitrite Urine Bilirubin Urine Urobilinogen Ur Leukocyte Esterase Orders Category Date Time Status ADMIT PATIENT INPATIENT .TO [facility] (MONITORED BED) ADMISSION 08/29/20 13:42 Active EKG-(ED ONLY) Stat CARDIO 08/29/20 13:49 Completed EKG-(IP & OP ONLY) DAILY CARDIO 08/30/20 06:00 Completed EKG-(IP & OP ONLY) DAILY CARDIO 08/31/20 06:00 Ordered ACTIVITY .Early Mobilization for VTE Prevention CARE 08/29/20 13:45 Completed BLOOD GLUCOSE MONITORING 0630,1100,1700,2100 CARE 08/29/20 13:47 Active INTAKE & OUTPUT Q8HR CARE 08/29/20 13:45 Active NEUROLOGICAL CHECKS Q8HR CARE 08/29/20 13:49 Active NPO REMINDER: IMAGING ONCE CARE 08/29/20 11:02 Completed TELEMETRY MONITORING TELE CARE 08/29/20 13:42 Active VITAL SIGNS Q4HR CARE 08/29/20 13:45 Completed VITAL SIGNS Q8HR CARE 08/29/20 13:45 Active CBC W/ AUTO DIFF DAILY@0600 LAB 08/30/20 04:10 Completed CBC W/ AUTO DIFF DAILY@0600 LAB 08/31/20 06:00 Ordered COMPREHENSIVE METABOLIC PANEL DAILY@0600 LAB 08/31/20 06:00 Ordered CREATINE KINASE Q8H LAB 08/29/20 20:00 Completed CREATINE KINASE Q8H LAB 08/30/20 04:10 Completed PT WITH INR DAILY@0600 LAB 08/30/20 04:10 Completed PT WITH INR DAILY@0600 LAB 08/31/20 06:00 Ordered TROPONIN I Q8H LAB 08/29/20 20:00 Completed TROPONIN I Q8H LAB 08/30/20 04:10 Completed TROPONIN I Stat LAB 08/29/20 14:14 Completed UA [URINALYSIS C & S IF INDICATED] Stat LAB 08/29/20 11:08 Completed RESUSCITATION STATUS Routine OTHERS 08/29/20 13:[address] ABDOMEN/PELVIS WO CONTRAST Stat RADS 08/29/20 11:[address] HEAD W/O CONTRAST Stat RADS 08/29/20 11:10 Completed Medications Generic Name Dose Route Start Last Admin Trade Name Sebastianq PRN Reason Stop Dose Admin Acetaminophen 650 mg 08/29/20 16:44 Acetaminophen 325 Mg Tablet PO Q4H PRN Headache Aspirin 81 mg 08/30/20 08:30 Aspirin 81 Mg Tablet.Dr PO DAILYWM BRANDON Atropine Sulfate 0.5 mg 08/29/20 16:44 Atropine Sulfate Inj 1 Mg/10 Ml Disp.Syrin IVP ONCE PRN Symptomatic Bradycardia Citalopram Hydrobromide 40 mg 08/30/20 09:00 Citalopram Hydrobromide 20 Mg Tablet PO DAILY BRANDON Clonidine 0.1 mg 08/29/20 16:31 Clonidine Hcl 0.1 Mg Tablet PO BID PRN HYPERTENSION Hydrochlorothiazide 12.5 mg 08/30/20 09:00 Hydrochlorothiazide 25 Mg Tablet PO DAILY BRANDON Hydroxyzine HCl 25 mg 08/29/20 16:44 Hydroxyzine Hcl 25 Mg/Ml Vial IM Q4H PRN Nausea/Vomiting/Restlessness Loratadine 10 mg 08/30/20 09:00 Loratadine 10 Mg Tablet PO DAILY [facility] Lorazepam 1 - 2 mg 08/29/20 16:31 08/29/20 21:10 Lorazepam 1 Mg Tablet PO 1 mg BEDTIME PRN Administration Restlessness Losartan Potassium 50 mg 08/30/20 09:00 Losartan Potassium 25 Mg Tablet PO DAILY BRANDON Multivitamins 1 tab 08/30/20 09:00 Multivitamin 1 Tab PO DAILY BRANDON Nitroglycerin 0.4 mg 08/29/20 16:44 Nitroglycerin 0.4 Mg Tab.Subl SL Q5MIN X 3 DOSES PRN Chest Pain Non-Formulary Medication 2.4 gm 08/30/20 09:00 Mesalamine PO DAILY BRANDON Non-Formulary Medication 160 mg 08/29/20 21:00 Propranolol [Inderal La] PO BEDTIME BRANDON Omeprazole 20 mg 08/30/20 09:00 Omeprazole 20 Mg Capsule.Dr PO QDAC BRANDON Simvastatin 40 mg 08/29/20 21:00 08/29/20 20:48 Simvastatin 40 Mg Tablet PO 40 mg BEDTIME BRANDON Administration Sodium Chloride 1 syr 08/29/20 21:00 08/30/20 04:42 0.9% Sodium Chloride 10 Ml Disp.Syrin IVF Not Given Q8HR BRANDON Sumatriptan Succinate 50 mg 08/29/20 16:31 Sumatriptan Succinate 25 Mg Tablet PO PRN PRN MIGRAINE Timolol Maleate 1 drop 08/29/20 21:00 08/29/20 20:50 Timolol Maleate 5 Ml Opth Sonya EACHEYE 1 drop BID BRANDON Administration Tramadol HCl 50 mg 08/29/20 16:31 08/29/20 21:10 Tramadol Hcl 50 Mg Tablet PO 50 mg Q4H PRN Administration MODERATE PAIN Vital Signs: Temp Pulse Resp BP Pulse Ox 08/29/20 10:19 96.8 F L 62 17 149/85 H 98 Discharge Plan Discharge Patient Disposition: ADMITTED INPATIENT Discharge Problem: Brain TIA ED Provider: MATA RAMOS Condition: Good Physician Progress Note: 1. 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 This event lasted "a few minutes," according to patient. In ER, pt's verbal ability is lucid. Pt relates medical history that last February 2020, her sister found her on floor, unconscious. She was an in- patient at [facility] x 5 days and had/has no recollection of February 2020 events. Pt lives alone; however, brother and sister also live in [place]. 2. Pt c/o blood in urine, painless. Lab results: no blood in urine; UA normal. []
--- NOTE | 2020-08-29 11:48 | CT ---
EXAM: CT Abdomen Pelvis HISTORY: Blood in urine earlier today COMPARISON: 07/27/2019 TECHNIQUE: CT of the Abdomen Pelvis was performed without contrast. Coronal and sagital reformats we re obtained. FINDINGS: Clear lung bases. No acute findings in the liver, spleen, pancreas, or adrenal glands. Cholecystectomy. Stable couple of splenic hypodensities measuring up to approximately 1.3 cm. No urolithiasis, hydronephrosis or pe rinephric fat stranding. Normal bladder. Uterus within normal limits. Small hiatal hernia. No small or large bowel dilation. Colonic diverticulosis. Sigmoid colon wall t hickening with mild surrounding fluid. Normal appendix. No adenopathy. Normal diameter aorta. Scattered mild atherosclerotic calcifications. No abnormal fluid collection, free fluid or free air. No acute osseous abnormality. Degenerative changes of the thoracolumbar spi ne. Broad-based thoracolumbar levoscoliosis. IMPRESSION: 1. Sigmoid colon wall thickening in region of multiple diverticula, consistent with focal colitis ve rsus diverticulitis. 2. No radiopaque urolithiasis or urinary obstruction. 3. Stable small splenic hypodensities which may represent hemangiomas or cysts. 4. Small hiatal hernia
--- NOTE | 2020-08-29 13:07 | CT ---
EXAM: CT Head HISTORY: Loss of words this a.m., LOC times 5 days COMPARISON: 07/27/2019 TECHNIQUE: CT head performed without contrast FINDINGS: There is no mass effect, midline shift, or intracranial hemmorhage. Carlton white differenti ation is preserved. There is no extra-axial collection. Stable chronic small vessel ischemic change s of the white matter and generalized atrophy. The ventricles and sulci are unremarkable. The basal c isterns are patent. There is no depressed calvarial fracture. The mastoid air cells are clear. The visualized paranasal sinuses are clear. IMPRESSION: 1. No acute intracranial abnormality. 2. Stable chronic small vessel ischemic changes and atrophy.
[2020-08-29 14:42] LABS: BASOPHILS % (AUTO) 0.5 % (0.0-3.0); EOSINOPHILS # (AUTO) 0.1 K/ul (0.0-0.7); EOSINOPHILS % (AUTO) 1.7 % (0.0-7.0); HEMATOCRIT 35.1 % (37.0-47.0); HEMOGLOBIN 12.1 g/dl (12.0-16.0); IMMATURE GRANULOCYTE % (AUTO) 0.2 % (0.0-5.0); LYMPHOCYTES # (AUTO) 1.5 K/uL (0.60-3.4); MEAN CORPUSCULAR HGB CONC 34.5 (31.8-35.4); MEAN CORPUSCULAR VOLUME 92.9 fl (81.0-99.0); MONOCYTES # (AUTO) 0.6 K/uL (0.4-2.0); MONOCYTES % (AUTO) 9.8 (0-10); NEUTROPHILS # (AUTO) 4.1 K/ul (2.0-6.9); NEUTROPHILS % (AUTO) 63.8 % (42.2-75.2); PLATELET COUNT 171 10^3/uL (140-440); RDW COEFFICIENT OF VARIATION 12.7 % (11.6-14.8); RED BLOOD COUNT 3.78 10^6/ul (4.20-5.40); WHITE BLOOD COUNT 6.43 K/ul (4.6-10.2)
[2020-08-29 14:51] LABS: ALANINE AMINOTRANSFERASE 17.4 U/L (0-35); ALBUMIN 4.4 g/dL (3.5-5.0); ALKALINE PHOSPHATASE 49.9 U/L (53-141); BILIRUBIN,TOTAL 0.84 mg/dL (0.2-1.3); BLOOD UREA NITROGEN 12.1 mg/dL (7-17); CALCIUM 9.84 mg/dL (8.4-10.2); CHLORIDE 98.4 mmol/L (98-107); CREATININE 0.84 mg/dL (0.60-1.30); GLUCOSE 87.3 mg/dL (74-106); POTASSIUM 4.14 mmol/L (3.5-5.1); SODIUM 135.7 mmol/L (134.5-145); TOTAL PROTEIN 7.47 g/dL (6.3-8.2)
[2020-08-29 15:01] LABS: PROTHROMBIN TIME 9.9 SEC (9.3-11.0)
[2020-08-29] MEDS ORDERED: IMITREX PO PRN (16:31)
[2020-08-29] MEDS ORDERED: CATAPRES PO PRN (16:31)
[2020-08-29] MEDS ORDERED: VISTARIL INJ IM PRN (16:44)
[2020-08-29] MEDS ORDERED: ATROPINE SULFATE PFS IVP PRN (16:44)
[2020-08-29] MEDS ORDERED: TYLENOL PO PRN (16:44)
[2020-08-29] MEDS ORDERED: NITROSTAT SL PRN (16:44)
[2020-08-29 20:15] LABS: CREATINE KINASE 33.3 U/L (30-135)
[2020-08-29 20:28] LABS: TROPONIN I < 0.012 ng/ml (0.0000-0.120)
[2020-08-29] MEDS: ZOCOR PO SCH (20:48)
[2020-08-29] MEDS: TIMOPTIC 0.5% OPTH EACHEYE SCH (20:50)
[2020-08-29] MEDS: ULTRAM PO PRN (21:10)
[2020-08-29] MEDS: ATIVAN PO PRN (21:10)
[2020-08-30 04:18] LABS: BASOPHILS % (AUTO) 0.7 % (0.0-3.0); EOSINOPHILS # (AUTO) 0.1 K/ul (0.0-0.7); EOSINOPHILS % (AUTO) 2.5 % (0.0-7.0); HEMOGLOBIN 9.7 g/dl (12.0-16.0); IMMATURE GRANULOCYTE % (AUTO) 0.2 % (0.0-5.0); LYMPHOCYTES # (AUTO) 1.1 K/uL (0.60-3.4); LYMPHOCYTES % (AUTO) 24.4 (10.0-50.0); MEAN CORPUSCULAR HEMOGLOBIN 32.6 pg (27.0-31.0); MEAN CORPUSCULAR HGB CONC 34.6 (31.8-35.4); MONOCYTES # (AUTO) 0.5 K/uL (0.4-2.0); MONOCYTES % (AUTO) 12.2 (0-10); NEUTROPHILS # (AUTO) 2.7 K/ul (2.0-6.9); PLATELET COUNT 108 10^3/uL (140-440); RDW COEFFICIENT OF VARIATION 12.7 % (11.6-14.8); RED BLOOD COUNT 2.98 10^6/ul (4.20-5.40); WHITE BLOOD COUNT 4.43 K/ul (4.6-10.2)
[2020-08-30 04:31] LABS: ALANINE AMINOTRANSFERASE 14.3 U/L (0-35); ALBUMIN 3.45 g/dL (3.5-5.0); ALKALINE PHOSPHATASE 39.5 U/L (53-141); ASPARTATE AMINO TRANSFERASE 30.3 U/L (14-36); BILIRUBIN,TOTAL 0.94 mg/dL (0.2-1.3); BLOOD UREA NITROGEN 13.5 mg/dL (7-17); CALCIUM 9.01 mg/dL (8.4-10.2); CARBON DIOXIDE 30.3 mmol/L (22-30.0); CHLORIDE 99.7 mmol/L (98-107); CREATINE KINASE 30.5 U/L (30-135); CREATININE 0.85 mg/dL (0.60-1.30); POTASSIUM 4.17 mmol/L (3.5-5.1); SODIUM 134.4 mmol/L (134.5-145); TOTAL PROTEIN 6.09 g/dL (6.3-8.2)
[2020-08-30 04:43] LABS: TROPONIN I < 0.012 ng/ml (0.0000-0.120)
[2020-08-30 04:49] LABS: PROTHROMBIN TIME 10.2 SEC (9.3-11.0)
--- NOTE | 2020-08-30 07:28 | DI ---
EXAM: Chest one view, frontal view only. HISTORY: Altered mental status. COMPARISON: 03/12/2020. FINDINGS: The heart size is normal. There is no pulmonary vascular congestion. The lungs are clear save for calcified granulomatous changes. No pleural effusion or pneumothorax is seen. No acute os seous abnormality is identified. Left shoulder hemiarthroplasty changes noted. Since the prior stud y, there has been no significant interval change. IMPRESSION: No acute cardiopulmonary process.
--- NOTE | 2020-08-30 08:57 | PCM.PROG ---
Attending Provider: ATTENDING PROVIDER: Dr. FAISAL ALVARADO This patient is seen with Gerri Dillon, Nurse Practitioner. DATE OF SERVICE: 08/30/20 SUBJECTIVE: This 75 year old /WHITE F was hospitalized 08/29/20. The patient is resting comfortably. She still feels that she was confused and not herself. She is complaining of right hand weakness. REVIEW OF SYSTEMS: CONSTITUTIONAL: No night sweats. No fatigue, malaise, lethargy. No fever or chills. HEENT: Eyes: No visual changes. No eye pain. No eye discharge. ENT: No runny nose. No epistaxis. No sinus pain. No odynophagia. No congestion. RESPIRATORY: No cough, no congestion. No hemoptysis. No shortness of breath. CARDIOVASCULAR: No angina symptoms. No CHF symptoms. No atypical chest pain for CAD. No palpitations. No orthopnea.. GASTROINTESTINAL: No abdominal pain. No nausea or vomiting. No diarrhea or constipation. No hematemesis. No hematochezia. GENITOURINARY: No urgency. No frequency. No dysuria. No hematuria. No obstructive symptoms. No discharge. No pain. No significant abnormal bleeding. MUSCULOSKELETAL: No musculoskeletal pain; no joint swelling. Right hand weakness. NEUROLOGICAL: Awake, alert, confusion. No headache. No neck pain. No syncope. No seizures. No dizziness. PSYCHIATRIC: Not anxious. No depression. No suicidal thoughts. No homicidal thoughts. SKIN: No rash. No lesions. No wounds. ENDOCRINE: No unexplained weight loss. No weight gain. HEMATOLOGIC/LYMPHATIC: No anemia. No purpura. No petechiae. No prolonged or excessive bleeding. No palpable lymph nodes. PHYSICAL EXAMINATION: GENERAL: The patient is awake, alert and oriented, lying in bed in no distress. VITAL SIGNS: Temperature 97.0 F, Pulse 53, Respiratory Rate 16, BP 118/69, Pulse Ox 100% HEENT: Head normocephalic, atraumatic. Eyes: Extraocular muscles are intact. Pupils are equal, round and reactive to light and accommodation. Ears: No lesions. Nose appeared normal. Throat: No exudate or erythema. NECK: Supple. No JVD, no carotid bruit. No lymphadenopathy or thyromegaly. LUNGS: Diminished breath sounds. Clear to auscultation. Percussion note normal. Chest symmetrical. HEART: S1, S2, no S3. No murmurs. No cyanosis or clubbing. No ascites. Pulses: Dorsalis pedis and posterior tibial pulses +1 to +2 both sides. ABDOMEN: Soft. Non-tender. Bowel sounds active. No CVA tenderness. No mass felt. EXTREMITIES: No edema. Full range of motion of all extremities, equal. NEUROLOGIC: No focal deficit. Cranial nerves II through XII are grossly intact. No headache, no double vision or headache. SKIN: Not dry. Intact. Turgor-normal. LYMPHATIC: No palpable lymph nodes/no lymphedema. MUSCULOSKELETAL: Normal joints with no swelling. Muscle tone is normal. LAB REVIEW: 08/30/20 04:10 08/30/20 04:10 08/30/20 04:10: PT 10.2, INR 1.04 08/30/20 04:10: WBC 4.43 L, RBC 2.98 L, Hgb 9.7 L, Hct 28.0 L D, MCV 94.0, MCH 32.6 H, MCHC 34.6, RDW Coeff of Dimas 12.7, Plt Count 108 L D, Immature Gran % (Auto) 0.2, Neut % (Auto) 60.0, Lymph % (Auto) 24.4, [place] % (Auto) 12.2 H, Eos % (Auto) 2.5, Baso % (Auto) 0.7, Neut # (Auto) 2.7, Lymph # (Auto) 1.1, [place] # (Auto) 0.5, Eos # (Auto) 0.1, Baso # (Auto) 0.0, Immature Gran # (Auto) 0.0 08/30/20 04:10: Sodium 134.4 L, Potassium 4.17, Chloride 99.7, Carbon Dioxide 30.3 H, Anion Gap 8.57, BUN 13.5, Creatinine 0.85, Estimated GFR (MDRD) 65.00, BUN/Creatinine Ratio 15.88, Glucose 94.0, Calcium 9.01, Total Bilirubin 0.94, AST 30.3, ALT 14.3, Alkaline Phosphatase 39.5 L, Total Creatine Kinase 30.5, Troponin I < 0.012, Total Protein 6.09 L, Albumin 3.45 L, Globulin 2.64, Albumin/Globulin Ratio 1.30 08/29/20 20:00: Total Creatine Kinase 33.3, Troponin I < 0.012 08/29/20 14:14: Troponin I < 0.012 08/29/20 14:00: Sodium 135.7, Potassium 4.14, Chloride 98.4, Carbon Dioxide 31.0 H, Anion Gap 10.44, BUN 12.1, Creatinine 0.84, Estimated GFR (MDRD) 66.00, BUN/Creatinine Ratio 14.40, Glucose 87.3, Calcium 9.84, Total Bilirubin 0.84, AST 40.0 H, ALT 17.4, Alkaline Phosphatase 49.9 L, Total Protein 7.47, Albumin 4.40, Globulin 3.07, Albumin/Globulin Ratio 1.43 08/29/20 14:00: PT 9.9, INR 1.01 08/29/20 14:00: WBC 6.43, RBC 3.78 L, Hgb 12.1, Hct 35.1 L, MCV 92.9, MCH 32.0 H , MCHC 34.5, RDW Coeff of Dim[place] 12.7, Plt Count 171, Immature Gran % (Auto) 0.2, Neut % (Auto) 63.8, Lymph % (Auto) 24.0, [place] % (Auto) 9.8, Eos % (Auto) 1.7, Baso % (Auto) 0.5, Neut # (Auto) 4.1, Lymph # (Auto) 1.5, [place] # (Auto) 0.6, Eos # (Auto) 0.1, Baso # (Auto) 0.0, Immature Gran # (Auto) 0.0 08/29/20 11:08: Urine Color Yellow, Urine Clarity Clear, Urine pH 5.5, Ur Specific [place] <=1.005, Urine Protein Negative, Urine Glucose (UA) Negative, Urine Ketones Negative, Urine Blood Negative, Urine Nitrite Negative, Urine Bilirubin Negative, Urine Urobilinogen 0.2, Ur Leukocyte Esterase Negative ASSESSMENT: Please see below. 1. Possible TIA 2. Intermittent confusion 3. One episode hematuria 4. Anxiety 5. History of diverticulitis PLAN: 1. MRI of brain with and without 2. Bilateral carotid scan Plan and coordination of the patient's care discussed in the presence of Drier Tender Naphthalene and nurse. SCRIBED BY: SHAMEKA LYNN, Hospital Liaison scribed while in presence of service performed by Dr. Alvarado/Gerri Dillon APRN on 08/30/20 ([id number])
[2020-08-30] MEDS: ASPIRIN EC PO SCH (09:34)
[2020-08-30] MEDS: COZAAR PO SCH (09:34)
[2020-08-30] MEDS: HYDROCHLOROTHIAZIDE PO SCH (09:34)
[2020-08-30] MEDS: CELEXA PO SCH (09:34)
[2020-08-30] MEDS: CLARITIN PO SCH (09:35)
[2020-08-30] MEDS: PRILOSEC PO SCH (09:35)
[2020-08-30] MEDS: MULTIVITAMIN TABLET PO SCH (09:35)
[2020-08-30] MEDS: TIMOPTIC 0.5% OPTH EACHEYE SCH ×2 (09:41→20:57)
[2020-08-30 10:13] LABS: ABSOLUTE RETICS # 0.0459; RETICULOCYTE % 1.48 %; RETICULOCYTE HEMOGLOBIN 37.1
[2020-08-30 10:26] LABS: IRON 44.2 ug/dL (37-170)
[2020-08-30 10:44] LABS: FREE T4 (FREE THYROXINE) 1.39 ng/dL (0.78-2.19)
[2020-08-30] MEDS: NON-FORMULARY MEDICATION (Mesalamine 1.2 gram Tablet,Delayed Release (Dr/Ec)) PO SCH (11:06)
[2020-08-30] MEDS: ULTRAM PO PRN (11:10)
[2020-08-30 11:31] LABS: FOLATE > 20.00 ng/mL
--- NOTE | 2020-08-30 12:47 | MRI ---
EXAM: MRI brain with and without contrast. Date: 08/30/2020 COMPARISON: CT brain 08/29/2020 HISTORY: Confusion and forgetfulness TECHNIQUE: Routine MR images of the brain were obtained before and after the intravenous administrat ion of 12 mL of Dot[place] via the right wrist IV FINDINGS: No intracranial mass, mass effect, hemorrhage, or abnormal extra-axial fluid collection. The ventricles and subarachnoid spaces are not enlarged. Normal flow voids of the major intracranial arteries seen. No acute infarct on diffusion weighted imaging. There are periventricular and subc ortical white matter T2 hyperintensities that are nonspecific and most likely represent small vessel disease. No pituitary, pineal, or cerebellopontine angle lesion seen. The craniocervical junction a ppears normal. There has been bilateral cataract removal. Paranasal sinuses are clear. No fluid in the middle ear cavities or mastoid air cells. IMPRESSION: 1. No acute intracranial abnormality. 2. Periventricular and subcortical white matter T2 hyperintensities that are nonspecific and most li petrona represent small vessel disease.
--- NOTE | 2020-08-30 12:59 | PN ---
DATE OF SERVICE: 08/29/2020 SUBJECTIVE: The patient was seen and examined. The patient was brought to the emergency room with symptoms consistent with possibility of TIA. The patient's neurological status is normal. Cardiovascular status is stable. The patient's cardiac markers are negative. Telemetry doesn't show any significant arrhythmias. CT scan of the head is negative except for small vessel disease. She is going to be hospitalized with neuro-checks every three hourly. CONDITION: Stable. PLAN: 1. The patient also is going to have Carotid scan 2. Echo 3. Continue telemetry and neuro-checks. TIME SPENT: More than 30 minutes. Plan and coordination of the patient's care discussed in the presence of nurse. MOISES
--- NOTE | 2020-08-30 13:22 | US ---
EXAM: Bilateral carotid artery Doppler. History: Loss of speech and confusion. Comparison: Carotid Doppler 03/15/2020 Technique: Multiple sonographic images through the bilateral internal carotid arteries were obtained . Color duplex Doppler was used to interrogate vascular flow. Findings: The right ICA peak systolic velocity is within normal limits measuring 90 cm/sec. The right ICA/cca PSV ratio is normal at 1.4. The right vertebral artery is patent and demonstrates antegrade flow. G ray scale images demonstrate mild to moderate plaque buildup within the right internal carotid artery . The left ICA peak systolic velocity is within normal limits measuring 69 cm/sec. The left ICA/cca PS V ratio is normal at 1.1. The left vertebral artery is patent and demonstrates antegrade flow. [place] scale images demonstrate mild to moderate plaque buildup within the left internal carotid artery. Impression: The velocities and ratios indicate no significant hemodynamic stenosis of the bilateral i nternal carotid arteries.
--- NOTE | 2020-08-30 13:53 | PN ---
DATE OF SERVICE: 08/30/2020 SUBJECTIVE: The patient was seen and examined with the Nurse Practitioner. The patient's condition is stable. She is up and about. No neurological deficit. She is going to have a carotid scan and also echocardiogram. Telemetry does not show any arrhythmias. TIME SPENT: More than 30 minutes. Plan and coordination of the patient's care discussed in the presence of nurse. MOISES
[2020-08-30 14:07] LABS: BASOPHILS % (AUTO) 0.5 % (0.0-3.0); EOSINOPHILS # (AUTO) 0.1 K/ul (0.0-0.7); EOSINOPHILS % (AUTO) 2.7 % (0.0-7.0); HEMATOCRIT 29.3 % (37.0-47.0); HEMOGLOBIN 10.4 g/dl (12.0-16.0); IMMATURE GRANULOCYTE % (AUTO) 0.2 % (0.0-5.0); LYMPHOCYTES # (AUTO) 1.1 K/uL (0.60-3.4); LYMPHOCYTES % (AUTO) 26.9 (10.0-50.0); MEAN CORPUSCULAR HGB CONC 35.5 (31.8-35.4); MONOCYTES # (AUTO) 0.5 K/uL (0.4-2.0); MONOCYTES % (AUTO) 10.9 (0-10); NEUTROPHILS # (AUTO) 2.4 K/ul (2.0-6.9); NEUTROPHILS % (AUTO) 58.8 % (42.2-75.2); PLATELET COUNT 123 10^3/uL (140-440); RDW COEFFICIENT OF VARIATION 12.7 % (11.6-14.8); RED BLOOD COUNT 3.15 10^6/ul (4.20-5.40); WHITE BLOOD COUNT 4.13 K/ul (4.6-10.2)
[2020-08-30] MEDS: PROPRANOLOL 160 MG PO SCH ×2 (18:14→21:02)
[2020-08-30] MEDS: [UNRECOGNIZED DRUG - OTHER] PO SCH ×2 (18:14→21:02)
[2020-08-30] MEDS: ZOCOR PO SCH (20:58)
[2020-08-30] MEDS: ATIVAN PO PRN (21:49)
[2020-08-31 05:25] LABS: BASOPHILS % (AUTO) 0.5 % (0.0-3.0); EOSINOPHILS # (AUTO) 0.1 K/ul (0.0-0.7); EOSINOPHILS % (AUTO) 2.5 % (0.0-7.0); HEMATOCRIT 29.1 % (37.0-47.0); HEMOGLOBIN 10.2 g/dl (12.0-16.0); IMMATURE GRANULOCYTE % (AUTO) 0.5 % (0.0-5.0); LYMPHOCYTES # (AUTO) 1.2 K/uL (0.60-3.4); LYMPHOCYTES % (AUTO) 33.6 (10.0-50.0); MEAN CORPUSCULAR HEMOGLOBIN 32.2 pg (27.0-31.0); MEAN CORPUSCULAR HGB CONC 35.1 (31.8-35.4); MEAN CORPUSCULAR VOLUME 91.8 fl (81.0-99.0); MONOCYTES # (AUTO) 0.4 K/uL (0.4-2.0); NEUTROPHILS # (AUTO) 1.9 K/ul (2.0-6.9); NEUTROPHILS % (AUTO) 50.9 % (42.2-75.2); PLATELET COUNT 126 10^3/uL (140-440); RDW COEFFICIENT OF VARIATION 12.7 % (11.6-14.8); RED BLOOD COUNT 3.17 10^6/ul (4.20-5.40); WHITE BLOOD COUNT 3.66 K/ul (4.6-10.2)
[2020-08-31] MEDS: PRILOSEC PO SCH (05:37)
[2020-08-31 05:38] LABS: ALBUMIN 3.69 g/dL (3.5-5.0); ASPARTATE AMINO TRANSFERASE 31.8 U/L (14-36); BILIRUBIN,TOTAL 1.01 mg/dL (0.2-1.3); BLOOD UREA NITROGEN 12.6 mg/dL (7-17); CALCIUM 9.29 mg/dL (8.4-10.2); CARBON DIOXIDE 28.5 mmol/L (22-30.0); CHLORIDE 100.3 mmol/L (98-107); CREATININE 0.82 mg/dL (0.60-1.30); GLUCOSE 94.7 mg/dL (74-106); POTASSIUM 3.76 mmol/L (3.5-5.1); SODIUM 134.2 mmol/L (134.5-145); TOTAL PROTEIN 6.46 g/dL (6.3-8.2)
[2020-08-31 05:51] LABS: PROTHROMBIN TIME 9.8 SEC (9.3-11.0)
--- NOTE | 2020-08-31 08:10 | HP ---
DATE OF SERVICE: 08/29/20 REASON FOR HOSPITALIZATION/HISTORY OF PRESENT ILLNESS: This is a 75-year-old white female who presents to the emergency room. 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 She felt like she was discombobulated, unsteady. She reported a day ago that she had bright red blood in her urine two to three different times. PAST MEDICAL HISTORY: Recurrent diverticulitis History of acute kidney injury TMJ Ulcerative colitis Hypertension GERD Migraines Degenerative disk disease of the spine Scoliosis Depression History of C. diff 3 mm noncalcified nodule on the right upper lung; last CT was December 2019 Dyslipidemia Hiatal hernia Anxiety Depression PAST SURGICAL HISTORY: Left shoulder replacement by Dr. Jose L Potter, 2012 Status post cholecystectomy Last colonoscopy and EGD was in [place] [address] Prabhakar She has refused a mammogram. REVIEW OF SYSTEMS: CONSTITUTIONAL: Weakness. No night sweats. No malaise, lethargy. No fever or chills. HEENT: Eyes: No visual changes. No eye pain. No eye discharge. ENT: No runny nose. No epistaxis. No sinus pain. No sore throat. No odynophagia. No ear pain. No congestion. RESPIRATORY: No cough, no congestion. No hemoptysis. No shortness of breath. CARDIOVASCULAR: No angina symptoms. No CHF symptoms. No atypical chest pain for CAD. No palpitations. No PND. No orthopnea. GASTROINTESTINAL: No abdominal pain. No nausea or vomiting. No diarrhea or constipation. No hematemesis. No hematochezia. GENITOURINARY: No urgency. No frequency. No dysuria. No hematuria. No obstructive symptoms. No discharge. No pain. No significant abnormal bleeding. MUSCULOSKELETAL: No musculoskeletal pain. No joint swelling. No arthritis. NEUROLOGICAL: Intermittent disorientation. No headache. No neck pain. No syncope. No seizures. No dizziness. PSYCHIATRIC: Not anxious. No depression. No suicidal thoughts. No homicidal thoughts. SKIN: No rash. No lesions. No wounds. ENDOCRINE: No unexplained weight loss. No weight gain. HEMATOLOGIC/LYMPHATIC: No anemia. No purpura. No petechiae. No prolonged or excessive bleeding. No palpable lymph nodes. PERSONAL/FAMILY/SOCIAL HISTORY: She is . She lives at home by herself. She is a nonsmoker. No alcohol or ilicit drug use. MEDICATIONS: Propranolol (Inderal LA) 160 mg p.o. bedtime Lorazepam 1-2 mg p.o. bedtime p.r.n. Sumatriptan 50 mg p.o. p.r.n. Simvastatin 40 mg p.o. bedtime Citalopram 40 mg p.o. daily Loratadine 10 mg p.o. daily Tramadol 50 mg p.o. q.4h p.r.n. Omeprazole 20 mg p.o. daily Hydrochlorothiazide 12.5 mg p.o. daily Mesalamine 2.4 g p.o. daily Multivitamin one tab p.o. daily Losartan 50 mg p.o. daily Timolol one drop both eyes q.i.d. Clonidine 0.1 mg p.o. b.i.d. p.r.n. ALLERGIES: CODEINE, LATEX, NATURAL RUBBER PHYSICAL EXAMINATION: GENERAL: The patient is alert and oriented times three. VITAL SIGNS: Temperature 96.8, heart rate 62, respirations 17, Blood pressure 149/85, pulse ox 98%. HEENT: Head normocephalic, atraumatic. Eyes: Extraocular muscles are intact. Pupils are equal, round and reactive to light and accommodation. Ears: No lesions. Nose appeared normal. Throat: No exudate or erythema. NECK: Supple. No JVD, no carotid bruit. No lymphadenopathy or thyromegaly. LUNGS: Diminished breath sounds. Clear to auscultation. Percussion note normal. Chest symmetrical. HEART: S1, S2, no S3. No murmur. No cyanosis or clubbing. No ascites. Pulses: Dorsalis pedis and posterior tibial pulses +1 to +2 bilaterally. ABDOMEN: Soft. Nontender. Bowel sounds active. No CVA tenderness. No mass felt. EXTREMITIES: No leg edema. Full range of motion of all extremities, equal. NEUROLOGIC: No focal deficit. Cranial nerves II through XII are grossly intact. No headache, no double vision or headache. SKIN: Not dry. Intact. Turgor - normal. LYMPHATIC: No palpable lymph nodes/no lymphedema. MUSCULOSKELETAL: Normal joints with no swelling. Muscle tone is normal. LABS/IMAGING: Hemoglobin 12.1, hematocrit 35.1, platelets 171. INR 1.01. Urine was totally normal. Sodium 135, potassium 4.14, BUN 12, creatinine 0.84, AST 40, ALT 17.4. CT of the abdomen and pelvis showed sigmoid colon wall thickening in region of multiple diverticula consistent with focal colitis vs diverticulitis. No urolithiasis or urinary obstruction. Small hiatal hernia. CT of the brain shows no acute abnormality but stable chronic small vessel disease. Chest x-ray is normal. ASSESSMENT: 1. Possible TIA. 2. Temporary change in mental status. 3. Hypertension. 4. Dyslipidemia. 5. History of diverticulitis. PLAN: 1. Routine telemetry orders. 2. We will admit. 3. CBC, CMP daily. 4. Continue home medications 5. Bilateral carotid scan. 6. MRI of the brain with and without contrast. 7. Regular diet. 8. Oxygen 1 to 2L as needed. 9. Will do stool for occult blood. 10. Fall precautions. 11. CBC, CMP daily. 12. Will follow closely. TIME SPENT: More than 70 minutes. MTDD
[2020-08-31 09:08] LABS: OCCULT BLOOD SAMPLE 1 POSITIVE (NEGATIVE)
--- NOTE | 2020-08-31 09:45 | PCM.PROG ---
Attending Provider: ATTENDING PROVIDER: Dr. FAISAL ALVARADO This patient is seen with Gerri Dillon, Nurse Practitioner. DATE OF SERVICE: 08/31/20 SUBJECTIVE: This 75 year old /WHITE F was hospitalized 08/29/20. The pt is resting comfortably. The patient has had no episodes of syncope. She describes she has trouble speaking at times. No neurological deficit. Carotid scan and MRI of the brain both were normal. REVIEW OF SYSTEMS: CONSTITUTIONAL: No night sweats. No fatigue, malaise, lethargy. No fever or chills. Weakness. HEENT: Eyes: No visual changes. No eye pain. No eye discharge. ENT: No runny nose. No epistaxis. No sinus pain. No odynophagia. No congestion. RESPIRATORY: No cough, no congestion. No hemoptysis. No shortness of breath. CARDIOVASCULAR: No angina symptoms. No CHF symptoms. No atypical chest pain for CAD. No palpitations. No orthopnea.. GASTROINTESTINAL: No abdominal pain. No nausea or vomiting. No diarrhea or constipation. No hematemesis. No hematochezia. GENITOURINARY: No urgency. No frequency. No dysuria. No hematuria. No obstructive symptoms. No discharge. No pain. No significant abnormal bleeding. MUSCULOSKELETAL: No musculoskeletal pain; no joint swelling. NEUROLOGICAL: Awake, alert, oriented to time, place and person. No headache. No neck pain. No syncope. No seizures. No dizziness. PSYCHIATRIC: Anxious. No depression. No suicidal thoughts. No homicidal thoughts. SKIN: No rash. No lesions. No wounds. ENDOCRINE: No unexplained weight loss. No weight gain. HEMATOLOGIC/LYMPHATIC: No anemia. No purpura. No petechiae. No prolonged or excessive bleeding. No palpable lymph nodes. PHYSICAL EXAMINATION: GENERAL: The patient is awake, alert and oriented, lying in bed in no distress. VITAL SIGNS: Temperature 97.0 F, Pulse 52, Respiratory Rate 18, BP 106/60, Pulse Ox 97% HEENT: Head normocephalic, atraumatic. Eyes: Extraocular muscles are intact. Pupils are equal, round and reactive to light and accommodation. Ears: No lesions. Nose appeared normal. Throat: No exudate or erythema. NECK: Supple. No JVD, no carotid bruit. No lymphadenopathy or thyromegaly. LUNGS: Clear to auscultation. Percussion note normal. Chest symmetrical. HEART: S1, S2, no S3. No murmurs. No cyanosis or clubbing. No ascites. Pulses: Dorsalis pedis and posterior tibial pulses +1 to +2 both sides. ABDOMEN: Soft. Non-tender. Bowel sounds active. No CVA tenderness. No mass felt. EXTREMITIES: No edema. Full range of motion of all extremities, equal. NEUROLOGIC: No focal deficit. Cranial nerves II through XII are grossly intact. No headache, no double vision or headache. SKIN: Not dry. Intact. Turgor-normal. LYMPHATIC: No palpable lymph nodes/no lymphedema. MUSCULOSKELETAL: Normal joints with no swelling. Muscle tone is normal. LAB REVIEW: 08/31/20 04:50 08/31/20 04:50 08/31/20 04:56: PT 9.8, INR 1.00 08/31/20 04:50: Sodium 134.2 L, Potassium 3.76, Chloride 100.3, Carbon Dioxide 28.5, Anion Gap 9.16, BUN 12.6, Creatinine 0.82, Estimated GFR (MDRD) 68.00, BUN/Creatinine Ratio 15.36, Glucose 94.7, Calcium 9.29, Total Bilirubin 1.01, AST 31.8, ALT 14.0, Alkaline Phosphatase 45.0 L, Total Protein 6.46, Albumin 3.69, Globulin 2.77, Albumin/Globulin Ratio 1.33 08/31/20 04:50: WBC 3.66 L, RBC 3.17 L, Hgb 10.2 L, Hct 29.1 L, MCV 91.8, MCH 32.2 H, MCHC 35.1, RDW Coeff of Dim[place] 12.7, Plt Count 126 L, Immature Gran % (Auto) 0.5, Neut % (Auto) 50.9, Lymph % (Auto) 33.6, [place] % (Auto) 12.0 H, Eos % (Auto) 2.5, Baso % (Auto) 0.5, Neut # (Auto) 1.9 L, Lymph # (Auto) 1.2, [place] # (Auto) 0.4, Eos # (Auto) 0.1, Baso # (Auto) 0.0, Immature Gran # (Auto) 0.0 08/30/20 14:03: WBC 4.13 L, RBC 3.15 L, Hgb 10.4 L, Hct 29.3 L, MCV 93.0, MCH 33.0 H, MCHC 35.5 H, RDW Coeff of [place] 12.7, Plt Count 123 L, Immature Gran % (Auto) 0.2, Neut % (Auto) 58.8, Lymph % (Auto) 26.9, [place] % (Auto) 10.9 H, Eos % (Auto) 2.7, Baso % (Auto) 0.5, Neut # (Auto) 2.4, Lymph # (Auto) 1.1, [place] # (Auto) 0.5, Eos # (Auto) 0.1, Baso # (Auto) 0.0, Immature Gran # (Auto) 0.0 08/30/20 10:04: Transferrin 231 08/30/20 10:04: Ferritin 65.70, Folate > 20.00 08/30/20 10:04: Reticulocyte % (Auto) 1.48, Absolute Retic 0.0459, Retic Hgb Equivalent 37.1 08/30/20 10:04: TSH 2.540 08/30/20 10:04: Iron 44.2, TIBC 310, % Saturation 14, Vitamin B12 934 H, Free T4 1.39 ASSESSMENT: Please see below. 1. Possible TIA 2. Intermittent confusion 3. One episode hematuria 4. Anxiety 5. History of diverticulitis 6. Anemia PLAN: 1. Hemoccult pending 2. Discontinue Prilosec 3. Protonix 4. 24 hour holter Plan and coordination of the patient's care discussed in the presence of Switchboard Clerk and nurse. SCRIBED BY: Víctor MEZA scribed while in presence of service performed by Dr. Alvarado/Gerri Dillon APRN on 08/31/20 ([id number])
[2020-08-31] MEDS: COZAAR PO SCH (10:15)
[2020-08-31] MEDS: CELEXA PO SCH (10:16)
[2020-08-31] MEDS: ASPIRIN EC PO SCH (10:16)
[2020-08-31] MEDS: CLARITIN PO SCH (10:16)
[2020-08-31] MEDS: MULTIVITAMIN TABLET PO SCH (10:16)
[2020-08-31] MEDS: HYDROCHLOROTHIAZIDE PO SCH ×2 (10:16→10:25)
[2020-08-31] MEDS: TIMOPTIC 0.5% OPTH EACHEYE SCH ×2 (10:17→20:43)
[2020-08-31] MEDS: NON-FORMULARY MEDICATION (Mesalamine 1.2 gram Tablet,Delayed Release (Dr/Ec)) PO SCH (10:17)
[2020-08-31 12:09] LABS: OCCULT BLOOD SAMPLE 2 NO SPECIMEN RECEIVED (NEGATIVE); OCCULT BLOOD SAMPLE 3 NO SPECIMEN RECEIVED (NEGATIVE)
--- NOTE | 2020-08-31 13:35 | PN ---
DATE OF SERVICE: 08/31/2020 SUBJECTIVE: The patient was seen and examined with the Nurse Practitioner. The patient's condition has improved. The patient's occult blood was positive. She has anemia. The Holter applied and echo to be done. The patient's cardiovascular status is stable. No TIA. No neurological deficit. TIME SPENT: More than 30 minutes. Plan and coordination of the patient's care discussed in the presence of nurse. MOISES
[2020-08-31] MEDS: ULTRAM PO PRN ×2 (14:50→20:43)
[2020-08-31] MEDS: PROTONIX PO SCH (16:37)
[2020-08-31] MEDS: ZOCOR PO SCH (20:37)
[2020-08-31] MEDS: ATIVAN PO PRN (20:43)
[2020-08-31] MEDS: PROPRANOLOL 160 MG PO SCH (21:28)
[2020-08-31] MEDS: [UNRECOGNIZED DRUG - OTHER] PO SCH (21:28)
[2020-09-01 04:52] LABS: BASOPHILS % (AUTO) 0.5 % (0.0-3.0); EOSINOPHILS # (AUTO) 0.1 K/ul (0.0-0.7); EOSINOPHILS % (AUTO) 3.1 % (0.0-7.0); HEMATOCRIT 29.5 % (37.0-47.0); HEMOGLOBIN 10.4 g/dl (12.0-16.0); IMMATURE GRANULOCYTE % (AUTO) 0.3 % (0.0-5.0); LYMPHOCYTES # (AUTO) 1.5 K/uL (0.60-3.4); LYMPHOCYTES % (AUTO) 39.1 (10.0-50.0); MEAN CORPUSCULAR HEMOGLOBIN 32.5 pg (27.0-31.0); MEAN CORPUSCULAR HGB CONC 35.3 (31.8-35.4); MEAN CORPUSCULAR VOLUME 92.2 fl (81.0-99.0); MONOCYTES # (AUTO) 0.4 K/uL (0.4-2.0); MONOCYTES % (AUTO) 11.4 (0-10); NEUTROPHILS # (AUTO) 1.8 K/ul (2.0-6.9); NEUTROPHILS % (AUTO) 45.6 % (42.2-75.2); PLATELET COUNT 132 10^3/uL (140-440); RDW COEFFICIENT OF VARIATION 12.5 % (11.6-14.8); WHITE BLOOD COUNT 3.86 K/ul (4.6-10.2)
[2020-09-01 05:05] LABS: ALANINE AMINOTRANSFERASE 15.9 U/L (0-35); ALBUMIN 3.79 g/dL (3.5-5.0); ALKALINE PHOSPHATASE 43.6 U/L (53-141); ASPARTATE AMINO TRANSFERASE 32.6 U/L (14-36); BILIRUBIN,TOTAL 0.86 mg/dL (0.2-1.3); BLOOD UREA NITROGEN 15.2 mg/dL (7-17); CALCIUM 9.07 mg/dL (8.4-10.2); CARBON DIOXIDE 29.5 mmol/L (22-30.0); CHLORIDE 98.3 mmol/L (98-107); CREATININE 0.88 mg/dL (0.60-1.30); GLUCOSE 85.9 mg/dL (74-106); POTASSIUM 3.44 mmol/L (3.5-5.1); SODIUM 133.7 mmol/L (134.5-145); TOTAL PROTEIN 6.58 g/dL (6.3-8.2)
[2020-09-01] MEDS: PROTONIX PO SCH ×2 (06:11→17:00)
[2020-09-01] MEDS: CELEXA PO SCH (08:42)
[2020-09-01] MEDS: MULTIVITAMIN TABLET PO SCH (08:42)
[2020-09-01] MEDS: CLARITIN PO SCH (08:43)
[2020-09-01] MEDS: TIMOPTIC 0.5% OPTH EACHEYE SCH ×2 (09:00→20:53)
[2020-09-01] MEDS: NON-FORMULARY MEDICATION (Mesalamine 1.2 gram Tablet,Delayed Release (Dr/Ec)) PO SCH (09:42)
[2020-09-01] MEDS: HYDROCHLOROTHIAZIDE PO SCH (10:04)
[2020-09-01] MEDS: ULTRAM PO PRN (17:16)
[2020-09-01] MEDS: ATIVAN PO PRN (20:52)
[2020-09-01] MEDS: ZOCOR PO SCH (20:53)
[2020-09-01] MEDS: [UNRECOGNIZED DRUG - OTHER] PO SCH (21:13)
[2020-09-01] MEDS: PROPRANOLOL 160 MG PO SCH (21:13)
[2020-09-02 05:24] LABS: BASOPHILS % (AUTO) 0.6 % (0.0-3.0); EOSINOPHILS # (AUTO) 0.1 K/ul (0.0-0.7); EOSINOPHILS % (AUTO) 1.4 % (0.0-7.0); HEMATOCRIT 33.5 % (37.0-47.0); HEMOGLOBIN 11.7 g/dl (12.0-16.0); IMMATURE GRANULOCYTE % (AUTO) 0.2 % (0.0-5.0); LYMPHOCYTES # (AUTO) 1.2 K/uL (0.60-3.4); LYMPHOCYTES % (AUTO) 25.6 (10.0-50.0); MEAN CORPUSCULAR HEMOGLOBIN 32.2 pg (27.0-31.0); MEAN CORPUSCULAR HGB CONC 34.9 (31.8-35.4); MEAN CORPUSCULAR VOLUME 92.3 fl (81.0-99.0); MONOCYTES # (AUTO) 0.4 K/uL (0.4-2.0); NEUTROPHILS # (AUTO) 3.1 K/ul (2.0-6.9); NEUTROPHILS % (AUTO) 64.2 % (42.2-75.2); PLATELET COUNT 163 10^3/uL (140-440); RDW COEFFICIENT OF VARIATION 12.6 % (11.6-14.8); RED BLOOD COUNT 3.63 10^6/ul (4.20-5.40); WHITE BLOOD COUNT 4.85 K/ul (4.6-10.2)
[2020-09-02 05:38] LABS: ALANINE AMINOTRANSFERASE 21.6 U/L (0-35); ALBUMIN 4.27 g/dL (3.5-5.0); ALKALINE PHOSPHATASE 48.6 U/L (53-141); ASPARTATE AMINO TRANSFERASE 38.3 U/L (14-36); BILIRUBIN,TOTAL 0.77 mg/dL (0.2-1.3); BLOOD UREA NITROGEN 14.5 mg/dL (7-17); CALCIUM 9.73 mg/dL (8.4-10.2); CARBON DIOXIDE 32.1 mmol/L (22-30.0); CHLORIDE 97.1 mmol/L (98-107); CREATININE 0.84 mg/dL (0.60-1.30); GLUCOSE 96.9 mg/dL (74-106); POTASSIUM 3.77 mmol/L (3.5-5.1); SODIUM 136.5 mmol/L (134.5-145); TOTAL PROTEIN 7.37 g/dL (6.3-8.2)
[2020-09-02] MEDS ORDERED: COZAAR PO SCH (06:00)
[2020-09-02] MEDS: PROTONIX PO SCH (06:00)
[2020-09-02] MEDS: HYDROCHLOROTHIAZIDE PO SCH (06:01)
[2020-09-02 06:07] VITALS: BP 128/77; TEMP 97.5
[2020-09-02] MEDS: ULTRAM PO PRN (09:04)
[2020-09-02] MEDS: CELEXA PO SCH (09:04)
[2020-09-02] MEDS: CLARITIN PO SCH (09:05)
[2020-09-02] MEDS: MULTIVITAMIN TABLET PO SCH (09:05)
[2020-09-02] MEDS: NON-FORMULARY MEDICATION (Mesalamine 1.2 gram Tablet,Delayed Release (Dr/Ec)) PO SCH (09:07)
[2020-09-02] MEDS: TIMOPTIC 0.5% OPTH EACHEYE SCH (09:08)
--- NOTE | 2020-09-02 09:54 | PCM.PROG ---
Attending Provider: ATTENDING PROVIDER: Dr. FAISAL POTTER This patient is seen with Gerri Dillon, Nurse Practitioner. DATE OF SERVICE: 09/02/20 SUBJECTIVE: This 75 year old /WHITE F was hospitalized 08/29/20. The patient is resting comfortably. MRI of the brain and Carotid scan were both normal. Holter shows no pauses. At this point other than fluctuation in hgb with positive stools the only abnormality. The patient has no neurological deficit. REVIEW OF SYSTEMS: CONSTITUTIONAL: No night sweats. No fatigue, malaise, lethargy. No fever or chills. HEENT: Eyes: No visual changes. No eye pain. No eye discharge. ENT: No runny nose. No epistaxis. No sinus pain. No odynophagia. No congestion. RESPIRATORY: No cough, no congestion. No hemoptysis. No shortness of breath. CARDIOVASCULAR: No angina symptoms. No CHF symptoms. No atypical chest pain for CAD. No palpitations. No orthopnea.. GASTROINTESTINAL: No abdominal pain. No nausea or vomiting. No diarrhea or con stipation. No hematemesis. No hematochezia. GENITOURINARY: No urgency. No frequency. No dysuria. No hematuria. No obstructive symptoms. No discharge. No pain. No significant abnormal bleeding. MUSCULOSKELETAL: No musculoskeletal pain; no joint swelling. NEUROLOGICAL: Awake, alert, oriented to time, place and person. No headache. No neck pain. No syncope. No seizures. No dizziness. PSYCHIATRIC: Not anxious. No depression. No suicidal thoughts. No homicidal thoughts. SKIN: No rash. No lesions. No wounds. ENDOCRINE: No unexplained weight loss. No weight gain. HEMATOLOGIC/LYMPHATIC: No anemia. No purpura. No petechiae. No prolonged or excessive bleeding. No palpable lymph nodes. PHYSICAL EXAMINATION: GENERAL: The patient is awake, alert and oriented, sitting in bed in no distress. VITAL SIGNS: Temperature 97.5 F, Pulse 54, Respiratory Rate 18, BP 128/77, Pulse Ox 98% HEENT: Head normocephalic, atraumatic. Eyes: Extraocular muscles are intact. Pupils are equal, round and reactive to light and accommodation. Ears: No lesions. Nose appeared normal. Throat: No exudate or erythema. NECK: Supple. No JVD, no carotid bruit. No lymphadenopathy or thyromegaly. LUNGS: Clear to auscultation. Percussion note normal. Chest symmetrical. HEART: S1, S2, no S3. No murmurs. No cyanosis or clubbing. No ascites. Pulses: Dorsalis pedis and posterior tibial pulses +1 to +2 both sides. ABDOMEN: Soft. Non-tender. Bowel sounds active. No CVA tenderness. No mass felt. EXTREMITIES: No edema. Full range of motion of all extremities, equal. NEUROLOGIC: No focal deficit. Cranial nerves II through XII are grossly intact. No headache, no double vision or headache. SKIN: Not dry. Intact. Turgor-normal. LYMPHATIC: No palpable lymph nodes/no lymphedema. MUSCULOSKELETAL: Normal joints with no swelling. Muscle tone is normal. LAB REVIEW: 09/02/20 05:04 09/02/20 05:04 09/02/20 05:04: Sodium 136.5, Potassium 3.77, Chloride 97.1 L, Carbon Dioxide 32.1 H, Anion Gap 11.07, BUN 14.5, Creatinine 0.84, Estimated GFR (MDRD) 66.00, BUN/Creatinine Ratio 17.26, Glucose 96.9, Calcium 9.73, Total Bilirubin 0.77, AST 38.3 H, ALT 21.6, Alkaline Phosphatase 48.6 L, Total Protein 7.37, Albumin 4.27, Globulin 3.10, Albumin/Globulin Ratio 1.37 09/02/20 05:04: WBC 4.85, RBC 3.63 L, Hgb 11.7 L, Hct 33.5 L, MCV 92.3, MCH 32.2 H, MCHC 34.9, RDW Coeff of Dim[place] 12.6, Plt Count 163, Immature Gran % (Auto) 0.2, Neut % (Auto) 64.2, Lymph % (Auto) 25.6, [place] % (Auto) 8.0, Eos % (Auto) 1.4, Baso % (Auto) 0.6, Neut # (Auto) 3.1, Lymph # (Auto) 1.2, [place] # (Auto) 0.4, Eos # (Auto) 0.1, Baso # (Auto) 0.0, Immature Gran # (Auto) 0.0 ASSESSMENT: Please see below. 1. Questionable TIA 2. Anemia 3. Melena 4. Anxiety 5. Hypertension 6. History of ulcerative colitis and recurrent diverticulitis. PLAN: 1. Appointment with Dr. Cherri ASHBY 2. Continue Protonix 40mg BID 3. Followup in office next week If in fact this could be TIA I do believe it is not, we do not recommend the use of aspirin at this time due to blood in the stool and anemia. The pat is instructed not to take any NSAIDS. Plan and coordination of the patient's care discussed in the presence of Case Mari berger and nurse. SCRIBED BY: Víctor MEZA scribed while in presence of service performed by Dr. Potter/Gerri Dillon APRN on 09/02/20 ([id number])
--- NOTE | 2020-09-02 12:19 | CM.DICTOOL ---
ADMISSION: 08/29/20 14:04 DISCHARGE: SEPTEMBER 02, 2020 DATE OF SERVICE: 09/02/20 FINAL DIAGNOSIS TIA, QUESTIONABLE ANEMIA MELENA HYPERTENSION HISTORY OF ULCERATIVE COLITIS AND RECURRENT DIVERTICULITIS DYSLIPIDEMIA GERD ANXIETY DEPRESSION DJD SPINE MIGRAINE HEADACHES DIVERTICULOSIS SMALL HIATAL HERNIA CHOLECYSTECTOMY LEFT SHOULDER REPLACEMENT COLONOSCOPY ([facility]BI, 2018) LAST CAROTID (08/2020): NO EVIDENCE FOR 50% OR GREATER STENOSIS ECHOCARDIOGRAM: COMPLETED 09/02/2020 LAST VITALS Temp Pulse Resp BP Pulse Ox 97.5 F L 54 L 14 128/77 97 09/02/20 06:00 09/02/20 08:00 09/02/20 08:00 09/02/20 06:00 09/02/20 10:00 TAKE THESE MEDICATIONS AT HOME Citalopram Hydrobromide (Citalopram Hydrobromide 20 Mg Tablet) 40 mg PO DAILY [facility] Last Admin: 09/02/20 09:04 Dose: 40 mg Documented by: Clonidine (Clonidine Hcl 0.1 Mg Tablet) 0.1 mg PO BID PRN PRN Reason: HYPERTENSION Hydrochlorothiazide (Hydrochlorothiazide 25 Mg Tablet) 12.5 mg PO 0600 [facility] Last Admin: 09/02/20 06:01 Dose: 12.5 mg Documented by: Loratadine (Loratadine 10 Mg Tablet) 10 mg PO DAILY [facility] Last Admin: 09/02/20 09:05 Dose: 10 mg Documented by: Lorazepam (Lorazepam 1 Mg Tablet) 1 - 2 mg PO BEDTIME PRN PRN Reason: Restlessness Last Admin: 09/01/20 20:52 Dose: 1 mg Documented by: Losartan Potassium (Losartan Potassium 25 Mg Tablet) 50 mg PO 0600 [facility] Last Admin: 09/02/20 06:01 Dose: 50 mg Documented by: Multivitamins (Multivitamin 1 Tab) 1 tab PO DAILY [facility] Last Admin: 09/02/20 09:05 Dose: 1 tab Documented by: Non-Formulary Medication (Mesalamine) 2.4 gm PO DAILY [facility] Last Admin: 09/02/20 09:07 Dose: Not Given Documented by: Non-Formulary Medication (Propranolol [Inderal La]) 160 mg PO BEDTIME [facility] Last Admin: 09/01/20 21:13 Dose: Not Given Documented by: Pantoprazole Sodium (Pantoprazole Sodium 40 Mg Tablet.) 40 mg PO BIDAC [facility] Last Admin: 09/02/20 06:00 Dose: 40 mg Documented by: Simvastatin (Simvastatin 40 Mg Tablet) 40 mg PO BEDTIME [facility] Last Admin: 09/01/20 20:53 Dose: 40 mg Documented by: Sumatriptan Succinate (Sumatriptan Succinate 25 Mg Tablet) 50 mg PO PRN PRN PRN Reason: MIGRAINE Timolol Maleate (Timolol Maleate 5 Ml Opth Sonya) 1 drop EACHEYE BID [facility] Last Admin: 09/02/20 09:08 Dose: 1 drop Documented by: Tramadol HCl (Tramadol Hcl 50 Mg Tablet) 50 mg PO Q4H PRN PRN Reason: MODERATE PAIN Last Admin: 09/02/20 09:04 Dose: 50 mg Documented by: ALLERGIES codeine Adverse Reaction (Verified 08/29/20 15:45) Latex, Natural Rubber Adverse Reaction (Verified 08/29/20 15:45) DISCONTINUED MEDICATIONS OMEPRAZOLE NEW PRESCRIPTIONS: PROTONIX 40 MG BID SMOKING: NOT APPLICABLE DISEASE SPECIFIC EDUCATION: APPOINTMENTS NEW MEDICATIONS LAB REVIEW: 09/02/20 05:04 09/02/20 05:04 09/02/20 05:04: Sodium 136.5, Potassium 3.77, Chloride 97.1 L, Carbon Dioxide 32.1 H, Anion Gap 11.07, BUN 14.5, Creatinine 0.84, Estimated GFR (MDRD) 66.00, BUN/Creatinine Ratio 17.26, Glucose 96.9, Calcium 9.73, Total Bilirubin 0.77, AST 38.3 H, ALT 21.6, Alkaline Phosphatase 48.6 L, Total Protein 7.37, Albumin 4.27, Globulin 3.10, Albumin/Globulin Ratio 1.37 09/02/20 05:04: WBC 4.85, RBC 3.63 L, Hgb 11.7 L, Hct 33.5 L, MCV 92.3, MCH 32.2 H, MCHC 34.9, RDW Coeff of Dimas 12.6, Plt Count 163, Immature Gran % (Auto) 0.2, Neut % (Auto) 64.2, Lymph % (Auto) 25.6, Bledsoe % (Auto) 8.0, Eos % (Auto) 1.4, Baso % (Auto) 0.6, Neut # (Auto) 3.1, Lymph # (Auto) 1.2, Bledsoe # (Auto) 0.4, Eos # (Auto) 0.1, Baso # (Auto) 0.0, Immature Gran # (Auto) 0.0 PLAN: DISCHARGE HOME DIET: REGULAR TOLERATED ACTIVITY: RESUME ACTIVITY TOLERATED APPOINTMENTS: DR. ALVARADO/MANDO WAHL APRN ON SEPTEMBER 08 AT 9:[address] GARRIDO ON SEPTEMBER 14 AT 1 PM CODE STATUS: FULL CODE MS. MO IS ALERT AND ORIENTED X 4. SHE IS COOPERATIVE WITH CARE AND AGREEABLE TO PLANS FOR DISCHARGE HOME. SHE LIVES ALONE. MS. MO IS INDEPENDENT WITH ALL ACTIVITIES OF DAILY LIVING, INCLUDING DRIVING. SHE IS AMBULATORY IN THE ROOM WITHOUT STAFF ASSIST OR USE OF AN ASSISTIVE DEVICE. SHE HAS A CANE FOR HER USE WHEN NEEDED. MS. MO IS CONTINENT OF BLADDER AND BOWEL. SHE HAS A GOOD APPETITE; CONSUMING 25-100% OF HER MEALS. HER COLOR IS PALE, SKIN IS WARM/DRY AND INTACT. MD MANDO GARCIA APRN
--- NOTE | 2020-09-02 13:49 | PN ---
DATE OF SERVICE: 09/01/2020 SUBJECTIVE: She didn't have any neurologist deficit of TIA's. The patient's anemia is stable with hgb of 10.4 and hct of 31. No evidence of any active GI bleed. Stool was occult positive. The patient is not on any nonsteroidal antiinflammatory. The patient's entire workup including carotid scan and CT scan was negative. She will have an echocardiogram done tomorrow. REVIEW OF SYSTEMS: CONSTITUTIONAL: No night sweats. No fatigue, malaise, lethargy. No fever or chills. HEENT: Eyes: No visual changes. No eye pain. No eye discharge. ENT: No runny nose. No epistaxis. No sinus pain. No sore throat. No odynophagia. No congestion. RESPIRATORY: No cough, no congestion. No hemoptysis. No shortness of breath. CARDIOVASCULAR: No angina symptoms. No CHF symptoms. No atypical chest pain for CAD. No palpitations. No PND. No orthopnea. GASTROINTESTINAL: No abdominal pain. No nausea or vomiting. No diarrhea or constipation. No hematemesis. No hematochezia. GENITOURINARY: No urgency. No frequency. No dysuria. No hematuria. No obstructive symptoms. No discharge. No pain. No significant abnormal bleeding. MUSCULOSKELETAL: No musculoskeletal pain; no joint swelling. NEUROLOGICAL: No headache. No neck pain. No syncope. No seizures. No dizziness. PSYCHIATRIC: Not anxious. No depression. No suicidal thoughts. No homicidal thoughts. SKIN: No rash. No lesions. No wounds. ENDOCRINE: No unexplained weight loss. No weight gain. HEMATOLOGIC/LYMPHATIC: No anemia. No purpura. No petechiae. No prolonged or excessive bleeding. No palpable lymph nodes. PHYSICAL EXAMINATION: VITAL SIGNS: Temperature 97.2, pulse 54, respiratory rate 16, blood pressure 100/64 and pulse ox 98%. HEENT: Head normocephalic, atraumatic. Eyes: Extraocular muscles are intact. Pupils are equal, round and reactive to light and accommodation. Ears: No lesions. Nose appeared normal. Throat: No exudate or erythema. NECK: Supple. No JVD, no carotid bruit. No lymphadenopathy or thyromegaly. LUNGS: Clear to auscultation. Percussion note normal. Chest symmetrical. HEART: S1, S2, no S3. No murmurs. No cyanosis or clubbing. No ascites. Pulses: Dorsalis pedis and posterior tibial pulses +1 to +2 bilaterally. ABDOMEN: Soft. Nontender. Bowel sounds active. No CVA tenderness. No mass felt. EXTREMITIES: No edema. Full range of motion of all extremities, equal. NEUROLOGIC: No focal deficit. Cranial nerves II through XII are grossly intact. No headache, no double vision or headache. SKIN: Not dry. Intact. Turgor - normal. LYMPHATIC: No palpable lymph nodes/no lymphedema. MUSCULOSKELETAL: Normal joints with no swelling. Muscle tone is normal. ASSESSMENT: 1. TIA type of symptoms likely from postoral hypotension exacerbated by probably anemia. PLAN: 1. Continue to monitor with telemetry 2. She is improving. TIME SPENT: More than 30 minutes. Plan and coordination of the patient's care discussed in the presence of nurse. MOISES
--- NOTE | 2020-09-02 14:31 | HOLTER ---
PATIENT INFORMATION AND COMMENTS Attending Physician: DR. FAISAL ALVARADO Indications: CONFUSION, SOA, WEAKNESS, TIA __ Patient Medications: ASA, ATROPINE, CITALOPRAM, HYDROBROMIDE, CLONIDINE, HCTZ, HYDROXYZINE, LORATADINE, LORAZEPAM, LOSARTAN Pre-procedure Summary: Protocol: Standard Heart Rate Started: 08/31/2020 1226 Minimum: 43 BPM Weight: 144 LBS Ended: 09/01/2020 1224 Maximum: 84 BPM Height: 65" Duration: 24 HRS Average: 54 BPM _ INTERPRETATIONS/OBSERVATIONS: 1. BASIC RHYTHM: SINUS, RATE 43 BPM TO 80 BPM, AVERAGE 54 BPM 2. RARE ISOLATED PAC'S AND PVC'S 3. THREE TO FOUR SHORT RUNS OF PAT CONSISTING OF [address]-T WAVE CHANGES FROM BASELINE 5. ACTIVITY LOG --BLANK MTDD
--- NOTE | 2020-09-03 08:47 | DS ---
DATE OF SERVICE: 09/02/20 FINAL DIAGNOSIS: 1. TIA, QUESTIONABLE 2. ANEMIA 3. MELENA 4. HYPERTENSION 5. HISTORY OF ULCERATIVE COLITIS AND RECURRENT DIVERTICULITIS 6. DYSLIPIDEMIA 7. GERD 8. ANXIETY 9. DEPRESSION 10. DJD SPINE 11. MIGRAINE HEADACHES 12. DIVERTICULOSIS 13. SMALL HIATAL HERNIA 14. CHOLECYSTECTOMY 15. LEFT SHOULDER REPLACEMENT 16. COLONOSCOPY ([facility], 2019) 17. LAST CAROTID (08/2020): NO EVIDENCE FOR 50% OR GREATER STENOSIS 18. ECHOCARDIOGRAM: COMPLETED 09/02/2020 LAST VITALS Temp Pulse Resp BP Pulse Ox 97.5 F L 54 L 14 128/77 97 09/02/20 06:00 09/02/20 08:00 09/02/20 08:00 09/02/20 06:00 09/02/20 10:00 DISCHARGE INSTRUCTIONS: 1. DISCHARGE HOME. 2. DR. ALVARADO/MANDO WAHL, DIRECTOR OF MEDICAL STAFF SERVICES ON SEPTEMBER 08 AT 9:45 AM; DR. PRABHAKAR ON SEPTEMBER 14 AT 1 PM. MEDICATIONS AT DISCHARGE: Citalopram Hydrobromide (Citalopram Hydrobromide 20 Mg Tablet) 40 mg PO DAILY [facility] Last Admin: 09/02/20 09:04 Dose: 40 mg Documented by: Clonidine (Clonidine Hcl 0.1 Mg Tablet) 0.1 mg PO BID PRN PRN Reason: HYPERTENSION Hydrochlorothiazide (Hydrochlorothiazide 25 Mg Tablet) 12.5 mg PO 0600 [facility] Last Admin: 09/02/20 06:01 Dose: 12.5 mg Documented by: Loratadine (Loratadine 10 Mg Tablet) 10 mg PO DAILY [facility] Last Admin: 09/02/20 09:05 Dose: 10 mg Documented by: Lorazepam (Lorazepam 1 Mg Tablet) 1 - 2 mg PO BEDTIME PRN PRN Reason: Restlessness Last Admin: 09/01/20 20:52 Dose: 1 mg Documented by: Losartan Potassium (Losartan Potassium 25 Mg Tablet) 50 mg PO 0600 [facility] Last Admin: 09/02/20 06:01 Dose: 50 mg Documented by: Multivitamins (Multivitamin 1 Tab) 1 tab PO DAILY [facility] Last Admin: 09/02/20 09:05 Dose: 1 tab Documented by: Non-Formulary Medication (Mesalamine) 2.4 gm PO DAILY [facility] Last Admin: 09/02/20 09:07 Dose: Not Given Documented by: Non-Formulary Medication (Propranolol ) 160 mg PO BEDTIME [facility] Last Admin: 09/01/20 21:13 Dose: Not Given Documented by: Pantoprazole Sodium (Pantoprazole Sodium 40 Mg Tablet.) 40 mg PO BIDAC [facility] Last Admin: 09/02/20 06:00 Dose: 40 mg Documented by: Simvastatin (Simvastatin 40 Mg Tablet) 40 mg PO BEDTIME [facility] Last Admin: 09/01/20 20:53 Dose: 40 mg Documented by: Sumatriptan Succinate (Sumatriptan Succinate 25 Mg Tablet) 50 mg PO PRN PRN PRN Reason: MIGRAINE Timolol Maleate (Timolol Maleate 5 Ml Opth Sonya) 1 drop EACHEYE BID [facility] Last Admin: 09/02/20 09:08 Dose: 1 drop Documented by: Tramadol HCl (Tramadol Hcl 50 Mg Tablet) 50 mg PO Q4H PRN PRN Reason: MODERATE PAIN Last Admin: 09/02/20 09:04 Dose: 50 mg Documented by: NEW PRESCRIPTIONS: PROTONIX 40 MG BID DISCONTINUED MEDICATIONS: OMEPRAZOLE DIET INSTRUCTIONS: REGULAR TOLERATED ACTIVITY: RESUME ACTIVITY TOLERATED SMOKING: NOT APPLICABLE DISEASE SPECIFIC EDUCATION: APPOINTMENTS NEW MEDICATIONS HOSPITAL COURSE: This 75-year-old white female who presented to the emergency room on Sunday after being at [facility]. She reported that she had an episode where she "lost her words". CT of the brain was done initially which was normal. MRI of the brain with and without contrast was done which was also normal. Carotid scan was normal. She was admitted for possible TIA. It is to be noted that initially while in the ER her hemoglobin was 12.1, the day following admission dropped to 9.7, the mext day went up to 9.8 then 10.2 and then dropped back down. After the initial drop she reported no blood in her stool, no blood in her urine. We did do a stool for blood which was positive. She does have a history of ulcerative colitis. They did do a CT of the abdomen which showed questionable colitis and inflammation but she was asymptomatic. No diarrhea, no tenderness. I discontinued her aspirin, put her on Protonix 40 mg b.i.d., discontinued her Omeprazole. Her last colonoscopy was last year with Dr. Prabhakar. She has an appointment scheduled with him on September 14 that our showcase trimmer have made. Her anemia is stable. Hemoglobin is 11.7 today which was similar to yesterday. She did do a holter for 24 hours which showed no abnormalities, no reason for her "loss of words". Again, all workup has been normal with exception of the positive stool. She will be discharged in stable condition and followup with us in our office next week. TIME SPENT: More than 60 minutes. MOISES
== END 2020-09-02 12:59 | disposition home or self-care (01) | DRG 812 ==
LOC: ED 10:18 → MEDSURG A 14:04
PROVIDERS: ADMIT Internal Medicine; ATTEND Internal Medicine
DX: R31.9 Hematuria, unspecified; K21.9 Gastro-esophageal reflux disease without esophagitis; I10 Essential (primary) hypertension; E78.5 Hyperlipidemia, unspecified; K92.1 Melena; F41.9 Anxiety disorder, unspecified; R41.0 Disorientation, unspecified; D64.9 Anemia, unspecified; I95.9 Hypotension, unspecified

== ENCOUNTER 2021-07-25 09:57 | Inpatient (IN) ==
[2021-07-25 10:15] LABS: BORDETELLA PARAPERTUSSIS (PCR) NOT DETECTED (NOT DETECT); BORDETELLA PERTUSSIS (PCR) NOT DETECTED (NOT DETECT); CHLAMYDIA PNEUMONIAE (PCR) NOT DETECTED (NOT DETECT); CORONAVIRUS 229E (PCR) NOT DETECTED (NOT DETECT); CORONAVIRUS HKU1 (PCR) NOT DETECTED (NOT DETECT); CORONAVIRUS NL63 (PCR) NOT DETECTED (NOT DETECT); CORONAVIRUS OC43 (PCR) NOT DETECTED (NOT DETECT); HUMAN METAPNEUMOVIRUS (PCR) NOT DETECTED (NOT DETECT); HUMAN RHINOVIRUS/ENTEROV (PCR) NOT DETECTED (NOT DETECT); INFLUENZA B (PCR) NOT DETECTED (NOT DETECT); MYCOPLASMA PNEUMONIAE (PCR) NOT DETECTED (NOT DETECT); PARAINFLUENZA VIRUS 1 (PCR) NOT DETECTED (NOT DETECT); PARAINFLUENZA VIRUS 2 (PCR) NOT DETECTED (NOT DETECT); PARAINFLUENZA VIRUS 3 (PCR) NOT DETECTED (NOT DETECT); PARAINFLUENZA VIRUS 4 (PCR) NOT DETECTED (NOT DETECT); RESPIRATORY SYNCYTIAL V (PCR) NOT DETECTED (NOT DETECT); SARS_COV_2 (PCR) NOT DETECTED (NOT DETECT)
[2021-07-25 11:04] LABS: ADENOVIRUS (PCR) NOT DETECTED (NOT DETECT)
[2021-07-25] MEDS ORDERED: ATROPINE SULFATE PFS IVP PRN (12:15)
[2021-07-25] MEDS ORDERED: NITROSTAT SL PRN (12:15)
[2021-07-25] MEDS ORDERED: TYLENOL PO PRN (12:15)
[2021-07-25] MEDS ORDERED: SODIUM CHLORIDE 1,000 ML IV SCH (12:30)
[2021-07-25 12:34] VITALS: BMI 27.5
[2021-07-25 12:34] LABS: BASOPHILS % (AUTO) 0.4 % (0.0-3.0); EOSINOPHILS # (AUTO) 0.1 K/ul (0.0-0.7); EOSINOPHILS % (AUTO) 1.1 % (0.0-7.0); HEMATOCRIT 35.6 % (37.0-47.0); HEMOGLOBIN 12.7 g/dl (12.0-16.0); IMMATURE GRANULOCYTE % (AUTO) 0.2 % (0.0-5.0); LYMPHOCYTES # (AUTO) 1.2 K/uL (0.60-3.4); LYMPHOCYTES % (AUTO) 21.7 (10.0-50.0); MEAN CORPUSCULAR HEMOGLOBIN 32.1 pg (27.0-31.0); MEAN CORPUSCULAR HGB CONC 35.7 (31.8-35.4); MEAN CORPUSCULAR VOLUME 89.9 fl (81.0-99.0); MONOCYTES # (AUTO) 0.5 K/uL (0.4-2.0); MONOCYTES % (AUTO) 8.4 (0-10); NEUTROPHILS # (AUTO) 3.8 K/ul (2.0-6.9); NEUTROPHILS % (AUTO) 68.2 % (42.2-75.2); PLATELET COUNT 205 10^3/uL (140-440); RED BLOOD COUNT 3.96 10^6/ul (4.20-5.40); WHITE BLOOD COUNT 5.58 K/ul (4.6-10.2)
[2021-07-25 12:52] LABS: ALBUMIN 4.59 g/dL (3.5-5.0); ALKALINE PHOSPHATASE 66.8 U/L (53-141); ASPARTATE AMINO TRANSFERASE 197.6 U/L (14-36); BILIRUBIN,TOTAL 0.88 mg/dL (0.2-1.3); BLOOD UREA NITROGEN 7.7 mg/dL (7-17); CALCIUM 9.64 mg/dL (8.4-10.2); CARBON DIOXIDE 28.1 mmol/L (22-30.0); CHLORIDE 92.6 mmol/L (98-107); CREATININE 0.78 mg/dL (0.60-1.30); GLUCOSE 114.9 mg/dL (74-106); POTASSIUM 2.94 mmol/L (3.5-5.1); SODIUM 131.2 mmol/L (134.5-145); TOTAL PROTEIN 7.44 g/dL (6.3-8.2)
[2021-07-25] MEDS ORDERED: POTASSIUM CHLORIDE 20 MEQ VIAL- ADDITIVE ONLY 20 MEQ in SODIUM CHLORIDE 1,000 ML IV SCH (13:11)
[2021-07-25] MEDS ORDERED: SODIUM CHLORIDE 0.9%-KCL 20 MEQ 1,000 ML IV SCH (13:30)
[2021-07-25] MEDS ORDERED: IMITREX PO PRN (13:45)
[2021-07-25] MEDS ORDERED: CATAPRES PO PRN (13:45)
[2021-07-25] MEDS ORDERED: ATIVAN PO PRN (13:45)
[2021-07-25] MEDS ORDERED: TIZANIDINE 2 MG PO PRN (13:45)
[2021-07-25] MEDS ORDERED: LEVSIN PO PRN (13:45)
[2021-07-25] MEDS ORDERED: TIMOLOL 0.5% OP SCH (14:00)
[2021-07-25] MEDS: ZOFRAN 4 MG/2 ML IVP PRN ×2 (14:00→20:05)
[2021-07-25] MEDS: FLAGYL 500 MG/100 ML 500 MG/100 ML BAG IV SCH ×2 (14:02→20:01)
--- NOTE | 2021-07-25 14:11 | DI ---
EXAM: CHEST FRONTAL VIEW HISTORY: Shortness of breath COMPARISON: 08/29/2020 FINDINGS: Heart size remains within normal limits. Ectasia of the aorta is again noted. There are scattered calcifications suggesting old granulomatous disease. No acute infiltrates are seen. No va scular congestion. There is no consolidation, visible pleural fluid or pneumothorax. Bones reveal n o acute fracture. Left shoulder arthroplasty. IMPRESSION: No acute cardiopulmonary process.
[2021-07-25] MEDS ORDERED: ZANAFLEX PO PRN (14:18)
[2021-07-25] MEDS: CLARITIN PO SCH (14:46)
[2021-07-25] MEDS: CELEXA PO SCH (14:46)
[2021-07-25 14:56] LABS: BILIRUBIN,URINE Negative (NEGATIVE); CLARITY,URINE Clear (CLEAR); COLOR,URINE Yellow (YELLOW); GLUCOSE, URINE (UA) Negative (NEGATIVE); KETONES,URINE Negative (NEGATIVE); LEUKOCYTE ESTERASE ,URINE Negative (NEGATIVE); NITRITE,URINE Negative (NEGATIVE); PROTEIN,URINE Negative (NEGATIVE); URINE, BLOOD Trace-intact (NEGATIVE); UROBILINOGEN,URINE 0.2 (0.2)
[2021-07-25 15:03] LABS: URINE WBC, MICROSCOPIC 0-2 (0-2)
[2021-07-25] MEDS: CIPRO 400 MG/200 ML D5W 400 MG/200 ML BAG IV SCH ×2 (15:24→21:19)
--- NOTE | 2021-07-25 15:34 | CT ---
EXAM: CT Abdomen Pelvis HISTORY: Vomiting, diarrhea COMPARISON: 04/26/2021 TECHNIQUE: CT of the Abdomen Pelvis was performed without and with IV contrast. Coronal and sagital reformats were obtained. FINDINGS: Clear lung bases. Normal heart size. Small/moderate hiatal hernia. Unremarkable liver. Cholecystectomy. Unchanged small splenic hypodensities representing cysts and/o r hemangiomas. Pancreas, adrenal glands, and kidneys are unremarkable. No adenopathy. Normal bladder . Hysterectomy. Stomach unremarkable. No small bowel dilation. Colonic diverticulosis. Mild wall thickening in the sigmoid colon with minimal adjacent inflammation. Additional areas of probable mild wall thickening in the proximal - mid descending colon. Normal appendix. Normal diameter aorta. No acute osseous a bnormality. Degenerative changes thoracolumbar spine. IMPRESSION: 1. Mild colonic wall thickening with trace inflammatory change involving the descending and sigmoid colon suggesting colitis. 2. Diverticulosis. 3. Cholecystectomy. All CT scans are performed using dose optimization techniques as appropriate to the performed exam an d include at least one of the following: Automated exposure control, adjustment of the mA and/or kV according t o size, and the use of iterative reconstruction technique.
[2021-07-25 16:03] LABS: ADENOVIRUS F40/41 (PCR) NOT DETECTED (NOT DETECT); ASTROVIRUS (PCR) NOT DETECTED (NOT DETECT); CAMPYLOBACTER (PCR) NOT DETECTED (NOT DETECT); CRYPTOSPORIDIUM (PCR) NOT DETECTED (NOT DETECT); CYCLOSPORA CAYETANENSIS (PCR) NOT DETECTED (NOT DETECT); ENTAMOEBA HISTOLYTICA (PCR) NOT DETECTED (NOT DETECT); NOROVIRUS GI/GII (PCR) NOT DETECTED (NOT DETECT); ROTAVIRUS A (PCR) NOT DETECTED (NOT DETECT); SALMONELLA(PCR) NOT DETECTED (NOT DETECT); SAPOVIRUS (PCR) NOT DETECTED (NOT DETECT); SHIGA-LIKE TOXIN E.COLI (PCR) NOT DETECTED (NOT DETECT); YERSINIA ENTEROCOLITICA (PCR) NOT DETECTED (NOT DETECT)
[2021-07-25] MEDS: PROTONIX PO SCH (16:56)
[2021-07-25] MEDS ORDERED: K-DUR PO SCH (17:00)
[2021-07-25 17:20] LABS: C DIFF A/B (PCR) NOT DETECTED (NOT DETECT)
[2021-07-25] MEDS: ULTRAM PO PRN (20:47)
[2021-07-25] MEDS: TIMOPTIC 0.5% OPTH EACHEYE SCH (20:48)
[2021-07-25] MEDS: [UNRECOGNIZED DRUG - OTHER] PO SCH (20:49)
[2021-07-25] MEDS: PROPRANOLOL 160 MG PO SCH (20:49)
[2021-07-26 04:09] LABS: HBsAgSCREEN Negative (Negative); HEP A AB, IgM Negative (Negative); HEP B CORE Ab, IgM Negative (Negative); HEP C VIRUS AB < 0.1 s/co ratio (0.0-0.9)
[2021-07-26 04:49] LABS: BASOPHILS % (AUTO) 0.5 % (0.0-3.0); EOSINOPHILS # (AUTO) 0.1 K/ul (0.0-0.7); EOSINOPHILS % (AUTO) 2.3 % (0.0-7.0); HEMATOCRIT 31.1 % (37.0-47.0); HEMOGLOBIN 11.2 g/dl (12.0-16.0); IMMATURE GRANULOCYTE % (AUTO) 0.2 % (0.0-5.0); LYMPHOCYTES # (AUTO) 1.3 K/uL (0.60-3.4); LYMPHOCYTES % (AUTO) 30.5 (10.0-50.0); MEAN CORPUSCULAR HEMOGLOBIN 32.7 pg (27.0-31.0); MEAN CORPUSCULAR VOLUME 90.7 fl (81.0-99.0); MONOCYTES # (AUTO) 0.6 K/uL (0.4-2.0); MONOCYTES % (AUTO) 14.7 (0-10); NEUTROPHILS # (AUTO) 2.2 K/ul (2.0-6.9); NEUTROPHILS % (AUTO) 51.8 % (42.2-75.2); PLATELET COUNT 161 10^3/uL (140-440); RDW COEFFICIENT OF VARIATION 12.2 % (11.6-14.8); RED BLOOD COUNT 3.43 10^6/ul (4.20-5.40)
[2021-07-26] MEDS: FLAGYL 500 MG/100 ML 500 MG/100 ML BAG IV SCH ×3 (04:57→21:08)
[2021-07-26] MEDS: ULTRAM PO PRN ×3 (04:57→14:54)
[2021-07-26 05:02] LABS: ALBUMIN 3.86 g/dL (3.5-5.0); ALKALINE PHOSPHATASE 55.7 U/L (53-141); ASPARTATE AMINO TRANSFERASE 140.2 U/L (14-36); BILIRUBIN,TOTAL 0.53 mg/dL (0.2-1.3); BLOOD UREA NITROGEN 5.7 mg/dL (7-17); CALCIUM 8.96 mg/dL (8.4-10.2); CARBON DIOXIDE 28.1 mmol/L (22-30.0); CHLORIDE 98.3 mmol/L (98-107); CREATININE 0.78 mg/dL (0.60-1.30); GLUCOSE 98.7 mg/dL (74-106); POTASSIUM 3.16 mmol/L (3.5-5.1); SODIUM 132.8 mmol/L (134.5-145); TOTAL PROTEIN 6.49 g/dL (6.3-8.2)
[2021-07-26] MEDS: ZOFRAN 4 MG/2 ML IVP PRN (05:12)
[2021-07-26] MEDS: PROTONIX PO SCH ×2 (05:50→17:52)
[2021-07-26] MEDS ORDERED: ZOFRAN 4 MG/2 ML IVP PRN (08:12)
[2021-07-26] MEDS ORDERED: SODIUM CHLORIDE 0.9%-KCL 20 MEQ 1,000 ML IV SCH (08:30)
--- NOTE | 2021-07-26 08:31 | PCM.PROG ---
Attending Provider: ATTENDING PROVIDER: Dr. FAISAL ALVARADO This patient is seen with Gerri Dillon, Nurse Practitioner. DATE OF SERVICE: 07/26/21 SUBJECTIVE: This 76 year old /WHITE F was hospitalized 07/25/21. The patient is resting comfortably. Complaining of nausea this morning. Did not have any vomiting through the night. Liver enzymes have improved. CT showed colitis. REVIEW OF SYSTEMS: CONSTITUTIONAL: No night sweats. Fatigue and weakness. No fever or chills. HEENT: Eyes: No visual changes. No eye pain. No eye discharge. ENT: No runny nose. No epistaxis. No sinus pain. No odynophagia. No congestion. RESPIRATORY: No cough, no congestion. No hemoptysis. No shortness of breath. CARDIOVASCULAR: No angina symptoms. No CHF symptoms. No atypical chest pain for CAD. No palpitations. No orthopnea.. GASTROINTESTINAL: Left sided abdominal pain. Nausea. No diarrhea or constipation. No hematemesis. No hematochezia. GENITOURINARY: No urgency. No frequency. No dysuria. No hematuria. No obstructive symptoms. No discharge. No pain. No significant abnormal bleeding. MUSCULOSKELETAL: No musculoskeletal pain; no joint swelling. NEUROLOGICAL: Awake, alert, oriented to time, place and person. No headache. No neck pain. No syncope. No seizures. No dizziness. PSYCHIATRIC: Not anxious. No depression. No suicidal thoughts. No homicidal thoughts. SKIN: No rash. No lesions. No wounds. ENDOCRINE: No unexplained weight loss. No weight gain. HEMATOLOGIC/LYMPHATIC: No anemia. No purpura. No petechiae. No prolonged or excessive bleeding. No palpable lymph nodes. PHYSICAL EXAMINATION: GENERAL: The patient is awake, alert and oriented, lying in bed in no distress. VITAL SIGNS: Temperature 98.2 F, Pulse 53, Respiratory Rate 18, BP 123/71, Pulse Ox 98% HEENT: Head normocephalic, atraumatic. Eyes: Extraocular muscles are intact. Pupils are equal, round and reactive to light and accommodation. Ears: No lesions. Nose appeared normal. Throat: No exudate or erythema. NECK: Supple. No JVD, no carotid bruit. No lymphadenopathy or thyromegaly. LUNGS: Diminished breath sounds. Clear to auscultation. Percussion note normal. Chest symmetrical. HEART: S1, S2, no S3. No murmurs. No cyanosis or clubbing. No ascites. Pulses: Dorsalis pedis and posterior tibial pulses +1 to +2 both sides. ABDOMEN: Soft. Mild left lower quadrant tenderness. Bowel sounds active. No CVA tenderness. No mass felt. EXTREMITIES: No edema. Full range of motion of all extremities, equal. NEUROLOGIC: No focal deficit. Cranial nerves II through XII are grossly intact. No headache. No double vision. SKIN: Not dry. Intact. Turgor-normal. LYMPHATIC: No palpable lymph nodes/no lymphedema. MUSCULOSKELETAL: Normal joints with no swelling. Muscle tone is normal. LAB REVIEW: 07/26/21 04:43 07/26/21 04:43 07/26/21 04:43: Sodium 132.8 L, Potassium 3.16 L, Chloride 98.3, Carbon Dioxide 28.1, Anion Gap 9.56, BUN 5.7 L, Creatinine 0.78, Estimated GFR (MDRD) 72.00, BUN/Creatinine Ratio 7.30, Glucose 98.7, Calcium 8.96, Total Bilirubin 0.53, AST 140.2 H D, ALT 83.0 H, Alkaline Phosphatase 55.7, Total Protein 6.49, Albumin 3.86, Globulin 2.63, Albumin/Globulin Ratio 1.46 07/26/21 04:43: WBC 4.30 L, RBC 3.43 L, Hgb 11.2 L, Hct 31.1 L, MCV 90.7, MCH 32.7 H, MCHC 36.0 H, RDW Coeff of Dimas 12.2, Plt Count 161, Immature Gran % (Auto) 0.2, Neut % (Auto) 51.8, Lymph % (Auto) 30.5, Rogers % (Auto) 14.7 H, Eos % (Auto) 2.3, Baso % (Auto) 0.5, Neut # (Auto) 2.2, Lymph # (Auto) 1.3, Rogers # (Auto) 0.6, Eos # (Auto) 0.1, Baso # (Auto) 0.0, Immature Gran # (Auto) 0.0 07/25/21 15:58: Stl C. cayetanensis PCR Not detected, Stool Rotavirus (PCR) Not detected, Stool Adenovirus (PCR) Not detected, Stool Astrovirus (PCR) Not detected, Stool Campylobacter PCR Not detected, Stl C.difficile Tox PCR Not detected, Stool Cryptosporidium PCR Not detected, Stl E.coli Shiga Tox PCR Not detected, St Sh/Enteroin Ecoli PCR Not detected, Stl Enterotoxigenic E PCR Not detected, Stool EPEC (PCR) Not detected, Stl E. histolytica PCR Not detected, Stool Giardia Lamblia PCR Not detected, Stl P. shigelloides PCR Not detected, Stool Salmonella PCR Not detected, Stool Sapovirus (PCR) Not detected, St Y.enterocolitica PCR Not detected, Stool Vibrio (PCR) Not detected, Stl Vibrio cholerae PCR Not detected, Stl Enteroaggr Ecoli PCR Not detected, Stl Norovirus GI/GII PCR Not detected 07/25/21 14:50: Urine Color Yellow, Urine Clarity Clear, Urine pH 7.0, Ur Specific [place] 1.010, Urine Protein Negative, Urine Glucose (UA) Negative, Urine Ketones Negative, Urine Blood Trace-intact H, Urine Nitrite Negative, Urine Bilirubin Negative, Urine Urobilinogen 0.2, Ur Leukocyte Esterase Negative, Urine Microscopic RBC 2-5, Urine Microscopic WBC 0-2, Ur Squamous Epith Cells 2-5, Ur Transition Epith Cell 2-5 07/25/21 12:32: Sodium 131.2 L, Potassium 2.94 L, Chloride 92.6 L, Carbon Dioxide 28.1, Anion Gap 13.44, BUN 7.7, Creatinine 0.78, Estimated GFR (MDRD) 72.00, BUN/Creatinine Ratio 9.87, Glucose 114.9 H, Calcium 9.64, Total Bilirubin 0.88, AST 197.6 H, ALT 90.0 H, Alkaline Phosphatase 66.8, Total Protein 7.44, Albumin 4.59, Globulin 2.85, Albumin/Globulin Ratio 1.61 07/25/21 12:32: WBC 5.58, RBC 3.96 L, Hgb 12.7, Hct 35.6 L, MCV 89.9, MCH 32.1 H , MCHC 35.7 H, RDW Coeff of Dimas 12.0, Plt Count 205, Immature Gran % (Auto) 0.2, Neut % (Auto) 68.2, Lymph % (Auto) 21.7, Rogers % (Auto) 8.4, Eos % (Auto) 1.1, Baso % (Auto) 0.4, Neut # (Auto) 3.8, Lymph # (Auto) 1.2, Rogers # (Auto) 0.5, Eos # (Auto) 0.1, Baso # (Auto) 0.0, Immature Gran # (Auto) 0.0 07/25/21 12:30: Hepatitis A IgM Ab Negative, Hep Bs Antigen Negative, Hep B Core IgM Ab Negative, Hep C Ab Signal/Cutoff < 0.1 07/25/21 10:05: Adenovirus (PCR) Not detected, B. pertussis DNA (PCR) Not detected, B.parapertussis DNA PCR Not detected, C. pneumoniae DNA (PCR) Not detected, Coronavirus OC43 (PCR) Not detected, Coronavirus HKU1 (PCR) Not detected, Coronavirus 229E (PCR) Not detected, Coronavirus NL63 (PCR) Not det ected, Human Metapneumovir PCR Not detected, Influenza Type A (PCR) Not detected, Influenza B (RT-PCR) Not detected, M. pneumoniae (PCR) Not detected, Parainfluenza 1 (PCR) Not detected, Parainfluenza 2 (PCR) Not detected, Parainfluenza 3 (PCR) Not detected, Parainfluenza 4 (PCR) Not detected, RSV ( PCR) Not detected, Entero/Rhino (PCR) Not detected, SARS-CoV-2 (PCR) Not detected ASSESSMENT: Please see below. 1. Acute colitis 2. Hypokalemia 3. Mild dehydration PLAN: 1. Increase Potassium 20meq TID 2. Zofran 8mg IV Q 6 PRN 3. Phenergan 25mg TID PRN Plan and coordination of the patient's care discussed in the presence of Manager Media Relations and nurse. SCRIBED BY: SHAMEKA LYNN Duct Cleaner scribed while in presence of service performed by Dr. Alvarado/Gerri Dillon APRN on 07/26/21 ([id number])
[2021-07-26] MEDS ORDERED: HYDROCHLOROTHIAZIDE 12.5 MG PO SCH (09:00)
[2021-07-26] MEDS ORDERED: NON-FORMULARY MEDICATION (Multivit-Min-Iron-Fa-Lutein [Centrum Silver Women] 8 mg iron-400 PO SCH (09:00)
[2021-07-26] MEDS: CLARITIN PO SCH (09:29)
[2021-07-26] MEDS: MULTIVITAMIN TABLET PO SCH (09:29)
[2021-07-26] MEDS: COZAAR PO SCH (09:30)
[2021-07-26] MEDS: K-DUR PO SCH ×3 (09:30→17:52)
[2021-07-26] MEDS: CELEXA PO SCH (09:30)
[2021-07-26] MEDS: HYDROCHLOROTHIAZIDE PO SCH (09:30)
[2021-07-26] MEDS: CIPRO 400 MG/200 ML D5W 400 MG/200 ML BAG IV SCH ×2 (09:30→22:35)
[2021-07-26] MEDS: TIMOPTIC 0.5% OPTH EACHEYE SCH ×2 (09:32→21:08)
[2021-07-26] MEDS: NON-FORMULARY MEDICATION (Mesalamine 1.2 gram Tablet,Delayed Release (Dr/Ec)) PO SCH (09:36)
[2021-07-26] MEDS: PHENERGAN TAB PO PRN (09:53)
--- NOTE | 2021-07-26 11:34 | HP ---
DATE OF SERVICE: 07/25/2021 REASON FOR HOSPITALIZATION/HISTORY OF PRESENT ILLNESS: One week had cauliflower pizza crust had diarrhea all last week. Vomited last night. Took Flagyl TID since Sunday- no improvement. Unable to eat, nauseated and weak. PAST MEDICAL HISTORY: Forgetful-MMSE -MRI carotid 09/03 Depression- Celexa helps Diverticulosis with history of recurrent diverticulosis Syncope postoral hypotension COVID-Vaccinated Hypertension History of migraine DJD spine-scoliosis History of kidney injury Left shoulder replacement Echo 04/03 Ejection fraction 48% 3mm Noncalcified nodule Right lower lung PAST SURGICAL HISTORY: Left shoulder replacement Gallbladder Abdominal hernia Left arm tumor REVIEW OF SYSTEMS: CONSTITUTIONAL: No fever, Fatigue. HEENT: No sinus drainage, no sore throat. RESPIRATORY: Cough, no congestion. CARDIOVASCULAR: No atypical chest pain for coronary artery disease. No angina, CHF symptoms, palpitations or shortness of breath. GASTROINTESTINAL: Abdominal pain. No GERD. Diarrhea. GENITOURINARY: No hematuria, no prostatism, no polyuria. BLOW MACHINE TENDER STARCH SPRAYING: No blackout, no dizziness, no headache, no double vision. MUSCULOSKELETAL: No osteoarthritis pain, no joint swelling. ENDOCRINE: 7 pound weight loss, no weight gain. SKIN: Not dry, no rash. PSYCHIATRIC: Not anxious, no depression, no suicidal thoughts, no homicidal thoughts. SOCIAL HISTORY: Marital Status: , not living together for 10 years Alcohol Usage: No. Tobacco Usage: No. FAMILY HISTORY: Father [place] lungs Mother TIA Brother 1 kidney Cancer 1 alive health Sister two both alive healthy MEDICATIONS: Citalopram 40mg Q daily Loratadine 10mg Q daily Tramadol 50mg QID Propanolol 160mg Q daily Imitrex 50mg PRN Simvastatin 40mg Q daily Hyoscyamine 0.125mg Q 4 PRN Mesalamine 1.2g BID Losartan 50mg Q daily Clonidine 0.1mg BID PRN HCTZ 12.5mg Q daily Vitamin D3 1000 international units Q daily Lorazepam 1mg 1-2 QHS Protonix 40mg daily Nyoseyamine PRN Ferrous sulfate 325 PO daily Timolol Maleate 0.5 BID Zanaflex 2mg PO BID Iron 3 to 4 days a week ALLERGIES: Codeine Lisinopril PHYSICAL EXAMINATION: V/S: Pulse 63, blood pressure 112/62, temperature 98.2, oxygen saturation 99% GENERAL APPEARANCE: Oriented times three. Pale. Dry mucus membrane. HEENT: Normal. NECK: No JVP, no bruits. RESPIRATORY: Decreased breath sounds. CARDIOVASCULAR: S1, S2, no S3, no murmur. No cyanosis, clubbing. No ascites. GI/ABDOMEN: Bowel sounds are active. Left lower quadrant mild tenderness. EXTREMITIES: edema, pulses +1, equal. BLOW MACHINE TENDER STARCH SPRAYING: Deep tendon reflexes, sensory, motor and gait all normal. RECTAL: Dr. Prabhakar 09/14/2020. EGD 01/31/PELVIC: Patient refused. ASSESSMENT: 1. Acute gastritis 2. Dehydration 3. Generalized weakness 4. Forgetful-MMSE -MRI carotid 09/03 5. Depression- Celexa helps 6. Diverticulosis with history of recurrent diverticulosis 7. Syncope postoral hypotension 8. COVID-Vaccinated 9. Hypertension 10.History of migraine 11.DJD spine-scoliosis 12.History of kidney injury 13.Left shoulder replacement 14.Echo 04/03 Ejection fraction 48% 15.3mm Noncalcified nodule Right lower lung PLAN: 1. Patient go through drive thru for COVID test 2. Routine telemetry orders -No cardiac markers 3. Normal saline 75cc hour 4. CBC and CMP now and daily 5. GI panel by PCR 6. Flagyl 500IV Q 8 hours times 5 days 7. Cipro 450mg IV BID times 5 days 8. Zofran 4mg IV Q 6 hours PRN for nausea 9. Urinalysis 10.Chest x-ray 11.[place]/BRAT diet 12.Continue home medications 13.CT abdomen and pelvis with and without TIME SPENT: More than 70 minutes. MTDD
[2021-07-26] MEDS: [UNRECOGNIZED DRUG - OTHER] PO SCH (21:07)
[2021-07-26] MEDS: PROPRANOLOL 160 MG PO SCH (21:07)
[2021-07-27] MEDS: FLAGYL 500 MG/100 ML 500 MG/100 ML BAG IV SCH ×3 (04:27→20:28)
[2021-07-27] MEDS: ULTRAM PO PRN ×2 (04:31→10:52)
[2021-07-27 05:18] LABS: BASOPHILS % (AUTO) 0.6 % (0.0-3.0); EOSINOPHILS # (AUTO) 0.1 K/ul (0.0-0.7); EOSINOPHILS % (AUTO) 1.8 % (0.0-7.0); HEMATOCRIT 30.4 % (37.0-47.0); HEMOGLOBIN 10.5 g/dl (12.0-16.0); IMMATURE GRANULOCYTE % (AUTO) 0.3 % (0.0-5.0); LYMPHOCYTES % (AUTO) 30.9 (10.0-50.0); MEAN CORPUSCULAR HEMOGLOBIN 32.2 pg (27.0-31.0); MEAN CORPUSCULAR HGB CONC 34.5 (31.8-35.4); MEAN CORPUSCULAR VOLUME 93.3 fl (81.0-99.0); MONOCYTES # (AUTO) 0.5 K/uL (0.4-2.0); MONOCYTES % (AUTO) 15.3 (0-10); NEUTROPHILS # (AUTO) 1.7 K/ul (2.0-6.9); NEUTROPHILS % (AUTO) 51.1 % (42.2-75.2); PLATELET COUNT 150 10^3/uL (140-440); RDW COEFFICIENT OF VARIATION 12.8 % (11.6-14.8); RED BLOOD COUNT 3.26 10^6/ul (4.20-5.40); WHITE BLOOD COUNT 3.33 K/ul (4.6-10.2)
[2021-07-27 05:33] LABS: ALANINE AMINOTRANSFERASE 77.4 U/L (0-35); ALBUMIN 3.5 g/dL (3.5-5.0); ALKALINE PHOSPHATASE 47.7 U/L (53-141); ASPARTATE AMINO TRANSFERASE 107.6 U/L (14-36); BILIRUBIN,TOTAL 0.46 mg/dL (0.2-1.3); BLOOD UREA NITROGEN 4.7 mg/dL (7-17); CALCIUM 8.76 mg/dL (8.4-10.2); CARBON DIOXIDE 23.8 mmol/L (22-30.0); CHLORIDE 105.9 mmol/L (98-107); CREATININE 0.83 mg/dL (0.60-1.30); GLUCOSE 98.8 mg/dL (74-106); POTASSIUM 3.49 mmol/L (3.5-5.1); SODIUM 135.9 mmol/L (134.5-145); TOTAL PROTEIN 6.12 g/dL (6.3-8.2)
[2021-07-27] MEDS: PROTONIX PO SCH ×2 (06:27→16:51)
[2021-07-27] MEDS: HYDROCHLOROTHIAZIDE PO SCH (08:24)
[2021-07-27] MEDS: K-DUR PO SCH ×3 (08:26→16:51)
[2021-07-27] MEDS: CELEXA PO SCH (08:27)
[2021-07-27] MEDS: MULTIVITAMIN TABLET PO SCH (08:28)
[2021-07-27] MEDS: CLARITIN PO SCH (08:28)
[2021-07-27] MEDS: COZAAR PO SCH (08:28)
[2021-07-27] MEDS: NON-FORMULARY MEDICATION (Mesalamine 1.2 gram Tablet,Delayed Release (Dr/Ec)) PO SCH (08:32)
[2021-07-27] MEDS: TIMOPTIC 0.5% OPTH EACHEYE SCH ×2 (08:34→20:26)
[2021-07-27] MEDS: CIPRO 400 MG/200 ML D5W 400 MG/200 ML BAG IV SCH ×2 (09:37→21:47)
[2021-07-27] MEDS: PHENERGAN TAB PO PRN ×2 (10:52→23:38)
[2021-07-27] MEDS ORDERED: IMODIUM PO PRN (12:33)
[2021-07-27] MEDS: PROPRANOLOL 160 MG PO SCH (20:26)
[2021-07-27] MEDS: [UNRECOGNIZED DRUG - OTHER] PO SCH (20:26)
[2021-07-28 05:26] LABS: BASOPHILS % (AUTO) 0.5 % (0.0-3.0); EOSINOPHILS # (AUTO) 0.1 K/ul (0.0-0.7); EOSINOPHILS % (AUTO) 3.1 % (0.0-7.0); HEMATOCRIT 30.9 % (37.0-47.0); HEMOGLOBIN 10.6 g/dl (12.0-16.0); IMMATURE GRANULOCYTE % (AUTO) 0.3 % (0.0-5.0); LYMPHOCYTES # (AUTO) 1.3 K/uL (0.60-3.4); LYMPHOCYTES % (AUTO) 32.4 (10.0-50.0); MEAN CORPUSCULAR HEMOGLOBIN 32.5 pg (27.0-31.0); MEAN CORPUSCULAR HGB CONC 34.3 (31.8-35.4); MEAN CORPUSCULAR VOLUME 94.8 fl (81.0-99.0); MONOCYTES # (AUTO) 0.5 K/uL (0.4-2.0); MONOCYTES % (AUTO) 11.8 (0-10); NEUTROPHILS % (AUTO) 51.9 % (42.2-75.2); PLATELET COUNT 142 10^3/uL (140-440); RDW COEFFICIENT OF VARIATION 12.4 % (11.6-14.8); RED BLOOD COUNT 3.26 10^6/ul (4.20-5.40); WHITE BLOOD COUNT 3.89 K/ul (4.6-10.2)
[2021-07-28 05:42] LABS: ALANINE AMINOTRANSFERASE 60.8 U/L (0-35); ALBUMIN 3.49 g/dL (3.5-5.0); ALKALINE PHOSPHATASE 43.8 U/L (53-141); ASPARTATE AMINO TRANSFERASE 75.3 U/L (14-36); BILIRUBIN,TOTAL 0.42 mg/dL (0.2-1.3); BLOOD UREA NITROGEN 6.8 mg/dL (7-17); CALCIUM 8.86 mg/dL (8.4-10.2); CARBON DIOXIDE 25.7 mmol/L (22-30.0); CHLORIDE 103.5 mmol/L (98-107); CREATININE 0.81 mg/dL (0.60-1.30); GLUCOSE 93.8 mg/dL (74-106); POTASSIUM 3.74 mmol/L (3.5-5.1); TOTAL PROTEIN 6.02 g/dL (6.3-8.2)
[2021-07-28] MEDS: FLAGYL 500 MG/100 ML 500 MG/100 ML BAG IV SCH ×3 (05:51→20:02)
[2021-07-28] MEDS: PROTONIX PO SCH ×2 (06:01→16:23)
[2021-07-28] MEDS: CIPRO 400 MG/200 ML D5W 400 MG/200 ML BAG IV SCH (08:56)
[2021-07-28] MEDS: CELEXA PO SCH (09:03)
[2021-07-28] MEDS: K-DUR PO SCH ×3 (09:03→16:22)
[2021-07-28] MEDS: CLARITIN PO SCH (09:05)
[2021-07-28] MEDS: COZAAR PO SCH (09:07)
[2021-07-28] MEDS: HYDROCHLOROTHIAZIDE PO SCH (09:07)
[2021-07-28] MEDS: MULTIVITAMIN TABLET PO SCH (09:09)
[2021-07-28] MEDS: NON-FORMULARY MEDICATION (Mesalamine 1.2 gram Tablet,Delayed Release (Dr/Ec)) PO SCH (09:12)
[2021-07-28] MEDS: TIMOPTIC 0.5% OPTH EACHEYE SCH ×2 (09:13→20:48)
--- NOTE | 2021-07-28 09:30 | PCM.PROG ---
Attending Provider: ATTENDING PROVIDER: Dr. FAISAL ALVARAOD This patient is seen with Gerri Dillon, Nurse Practitioner. DATE OF SERVICE: 07/28/21 SUBJECTIVE: This 76 year old /WHITE F was hospitalized 07/25/21. The patient is resting comfortably. Feeling somewhat better. Renal function this morning. Was able to eat entire supper. Slept well. REVIEW OF SYSTEMS: CONSTITUTIONAL: No night sweats. Fatigue. No fever or chills. Weakness. HEENT: Eyes: No visual changes. No eye pain. No eye discharge. ENT: No runny nose. No epistaxis. No sinus pain. No odynophagia. No congestion. RESPIRATORY: No cough, no congestion. No hemoptysis. No shortness of breath. CARDIOVASCULAR: No angina symptoms. No CHF symptoms. No atypical chest pain for CAD. No palpitations. No orthopnea.. GASTROINTESTINAL: No abdominal pain. No nausea or vomiting. Diarrhea. No hematemesis. No hematochezia. GENITOURINARY: No urgency. No frequency. No dysuria. No hematuria. No obstructive symptoms. No discharge. No pain. No significant abnormal bleeding. MUSCULOSKELETAL: No musculoskeletal pain; no joint swelling. NEUROLOGICAL: Awake, alert, oriented to time, place and person. No headache. No neck pain. No syncope. No seizures. No dizziness. PSYCHIATRIC: Not anxious. No depression. No suicidal thoughts. No homicidal thoughts. SKIN: No rash. No lesions. No wounds. ENDOCRINE: No unexplained weight loss. No weight gain. HEMATOLOGIC/LYMPHATIC: No anemia. No purpura. No petechiae. No prolonged or excessive bleeding. No palpable lymph nodes. PHYSICAL EXAMINATION: GENERAL: The patient is awake, alert and oriented, lying in bed in no distress. VITAL SIGNS: Temperature 97.6 F, Pulse 55, Respiratory Rate 18, BP 109/58, Pulse Ox 98% HEENT: Head normocephalic, atraumatic. Eyes: Extraocular muscles are intact. Pupils are equal, round and reactive to light and accommodation. Ears: No lesions. Nose appeared normal. Throat: No exudate or erythema. NECK: Supple. No JVD, no carotid bruit. No lymphadenopathy or thyromegaly. LUNGS: Diminished breath sounds. Clear to auscultation. Percussion note normal. Chest symmetrical. HEART: S1, S2, no S3. No murmurs. No cyanosis or clubbing. No ascites. Pulses: Dorsalis pedis and posterior tibial pulses +1 to +2 both sides. ABDOMEN: Soft. Non-tender. Bowel sounds active. No CVA tenderness. No mass felt. EXTREMITIES: No edema. Full range of motion of all extremities, equal. NEUROLOGIC: No focal deficit. Cranial nerves II through XII are grossly intact. No headache. No double vision. SKIN: Not dry. Intact. Turgor-normal. LYMPHATIC: No palpable lymph nodes/no lymphedema. MUSCULOSKELETAL: Normal joints with no swelling. Muscle tone is normal. LAB REVIEW: 07/28/21 05:13 07/28/21 05:13 07/28/21 05:13: Sodium 135.0, Potassium 3.74, Chloride 103.5, Carbon Dioxide 25.7, Anion Gap 9.54, BUN 6.8 L, Creatinine 0.81, Estimated GFR (MDRD) 69.00, BUN/Creatinine Ratio 8.39, Glucose 93.8, Calcium 8.86, Total Bilirubin 0.42, AST 75.3 H D, ALT 60.8 H, Alkaline Phosphatase 43.8 L, Total Protein 6.02 L, Albumin 3.49 L, Globulin 2.53, Albumin/Globulin Ratio 1.37 07/28/21 05:13: WBC 3.89 L, RBC 3.26 L, Hgb 10.6 L, Hct 30.9 L, MCV 94.8, MCH 32.5 H, MCHC 34.3, RDW Coeff of Dimas 12.4, Plt Count 142, Immature Gran % (Auto) 0.3, Neut % (Auto) 51.9, Lymph % (Auto) 32.4, [place] % (Auto) 11.8 H, Eos % (Auto) 3.1, Baso % (Auto) 0.5, Neut # (Auto) 2.0, Lymph # (Auto) 1.3, [place] # (Auto) 0.5, Eos # (Auto) 0.1, Baso # (Auto) 0.0, Immature Gran # (Auto) 0.0 ASSESSMENT: Please see below. 1. Acute colitis 2. Generalized weakness 3. Chronic anemia 4. Diarrhea 5. Hypotension PLAN: 1. Discontinue IV Cipro 2. Hold Losartan 3. Hold Hydrochlorothiazide 4. Florastor BID PO 5. Cipro 250mg PO BID Plan and coordination of the patient's care discussed in the presence of Financial Recruiter and nurse. SCRIBED BY: Víctor MEZA scribed while in presence of service performed by Dr. Alvarado/Gerri Dillon APRN on 07/28/21 ([id number])
[2021-07-28] MEDS: FLORASTOR PO SCH ×2 (10:03→20:47)
[2021-07-28] MEDS: CIPRO PO SCH ×2 (10:14→20:47)
[2021-07-28] MEDS: ZOFRAN 4 MG/2 ML IVP PRN ×2 (10:59→16:29)
--- NOTE | 2021-07-28 13:17 | PN ---
DATE OF SERVICE: 07/25/2021 SUBJECTIVE: The patient was hospitalized through the office. History and Physical was done with Nurse Practitioner. The plan made out. She is going to symptomatic treatment for nauseas and diarrhea. She has hypokalemia with potassium of 2.9. She is going to be given Potassium supplements. We will give her Flagyl for possibility of diverticulitis. Condition is stable. She is weak. TIME SPENT: More than 30 minutes. Plan and coordination of the patient's care discussed in the presence of nurse. MOISES
--- NOTE | 2021-07-28 14:35 | PN ---
DATE OF SERVICE: 07/26/2021 SUBJECTIVE: 76 year old white female hospitalized with acute gastritis and dehydration and generalized weakness. The patient's condition has improved. Hydration status has improved. She is afebrile. The patient was seen and examined with the Nurse Practitioner. TIME SPENT: More than 30 minutes. Plan and coordination of the patient's care discussed in the presence of nurse. MOISES
--- NOTE | 2021-07-28 14:39 | PN ---
DATE OF SERVICE: 07/27/2021 SUBJECTIVE: 76 year old white female hospitalized with acute gastritis and dehydration and generalized weakness. The patient's condition had improved but now she says that she has some epigastric discomfort and diarrhea. We will given Lomatol. REVIEW OF SYSTEMS: CONSTITUTIONAL: No night sweats. No fatigue, malaise, lethargy. No fever or chills. HEENT: Eyes: No visual changes. No eye pain. No eye discharge. ENT: No runny nose. No epistaxis. No sinus pain. No sore throat. No odynophagia. No congestion. RESPIRATORY: No cough, no congestion. No hemoptysis. No shortness of breath. CARDIOVASCULAR: No angina symptoms. No CHF symptoms. No atypical chest pain for CAD. No palpitations. No PND. No orthopnea. GASTROINTESTINAL: Mild abdominal distress. No nausea or vomiting. Diarrhea 3-4 diarrhea stools this morning. No hematemesis. No hematochezia. GENITOURINARY: No urgency. No frequency. No dysuria. No hematuria. No obstructive symptoms. No discharge. No pain. No significant abnormal bleeding. MUSCULOSKELETAL: No musculoskeletal pain; no joint swelling. NEUROLOGICAL: No headache. No neck pain. No syncope. No seizures. No dizziness. PSYCHIATRIC: Not anxious. No depression. No suicidal thoughts. No homicidal thoughts. SKIN: No rash. No lesions. No wounds. ENDOCRINE: No unexplained weight loss. No weight gain. HEMATOLOGIC/LYMPHATIC: No anemia. No purpura. No petechiae. No prolonged or excessive bleeding. No palpable lymph nodes. PHYSICAL EXAMINATION: VITAL SIGNS: Temperature 98, pulse 57, respiratory rate 18, blood pressure 124/70 and pulse ox 98% on room air. HEENT: Head normocephalic, atraumatic. Eyes: Extraocular muscles are intact. Pupils are equal, round and reactive to light and accommodation. Ears: No lesions. Nose appeared normal. Throat: No exudate or erythema. NECK: Supple. No JVD, no carotid bruit. No lymphadenopathy or thyromegaly. LUNGS: Decreased breath sounds. Clear to auscultation. Percussion note normal. Chest symmetrical. HEART: S1, S2, no S3. No murmurs. No cyanosis or clubbing. No ascites. Pulses: Dorsalis pedis and posterior tibial pulses +1 to +2 bilaterally. ABDOMEN: Soft. Mildly distended. Nontender. Questionable soreness of the epigastric area. No rebound. Bowel sounds active. No CVA tenderness. No mass felt. EXTREMITIES: No edema. Full range of motion of all extremities, equal. NEUROLOGIC: No focal deficit. Cranial nerves II through XII are grossly intact. No headache. No double vision. SKIN: Not dry. Intact. Turgor - normal. LYMPHATIC: No palpable lymph nodes/no lymphedema. MUSCULOSKELETAL: Normal joints with no swelling. Muscle tone is normal. LABS: Hgb 10.5, hct 30, WBC 3,300 with normal differential, creatinine 0.9, BUN 4.7, potassium 3.4. SARS Negative. ASSESSMENT: 1. Acute gastritis 2. Dehydration 3. Colitis PLAN: 1. Continue IV fluids 2. Antibiotics 3. Immodium to be given 4. Continue Flagyl and Cipro TIME SPENT: More than 30 minutes. Plan and coordination of the patient's care discussed in the presence of nurse. MOISES
[2021-07-28] MEDS: PROPRANOLOL 160 MG PO SCH (20:48)
[2021-07-28] MEDS: [UNRECOGNIZED DRUG - OTHER] PO SCH (20:48)
[2021-07-29] MEDS: FLAGYL 500 MG/100 ML 500 MG/100 ML BAG IV SCH (04:36)
[2021-07-29] MEDS: PROTONIX PO SCH ×2 (06:00→16:22)
[2021-07-29] MEDS: CIPRO PO SCH ×2 (06:01→21:23)
[2021-07-29 06:05] LABS: BASOPHILS % (AUTO) 0.7 % (0.0-3.0); EOSINOPHILS # (AUTO) 0.1 K/ul (0.0-0.7); EOSINOPHILS % (AUTO) 2.7 % (0.0-7.0); HEMATOCRIT 32.8 % (37.0-47.0); HEMOGLOBIN 11.1 g/dl (12.0-16.0); IMMATURE GRANULOCYTE % (AUTO) 0.2 % (0.0-5.0); LYMPHOCYTES # (AUTO) 1.2 K/uL (0.60-3.4); LYMPHOCYTES % (AUTO) 30.4 (10.0-50.0); MEAN CORPUSCULAR HEMOGLOBIN 32.4 pg (27.0-31.0); MEAN CORPUSCULAR HGB CONC 33.8 (31.8-35.4); MEAN CORPUSCULAR VOLUME 95.6 fl (81.0-99.0); MONOCYTES # (AUTO) 0.5 K/uL (0.4-2.0); MONOCYTES % (AUTO) 11.2 (0-10); NEUTROPHILS # (AUTO) 2.2 K/ul (2.0-6.9); NEUTROPHILS % (AUTO) 54.8 % (42.2-75.2); PLATELET COUNT 158 10^3/uL (140-440); RDW COEFFICIENT OF VARIATION 12.6 % (11.6-14.8); RED BLOOD COUNT 3.43 10^6/ul (4.20-5.40); WHITE BLOOD COUNT 4.01 K/ul (4.6-10.2)
[2021-07-29 06:19] LABS: ALBUMIN 3.61 g/dL (3.5-5.0); ALKALINE PHOSPHATASE 44.8 U/L (53-141); ASPARTATE AMINO TRANSFERASE 63.4 U/L (14-36); BILIRUBIN,TOTAL 0.41 mg/dL (0.2-1.3); BLOOD UREA NITROGEN 4.6 mg/dL (7-17); CALCIUM 9.01 mg/dL (8.4-10.2); CARBON DIOXIDE 25.4 mmol/L (22-30.0); CHLORIDE 105.4 mmol/L (98-107); CREATININE 0.81 mg/dL (0.60-1.30); GLUCOSE 97.2 mg/dL (74-106); POTASSIUM 4.07 mmol/L (3.5-5.1); SODIUM 137.5 mmol/L (134.5-145); TOTAL PROTEIN 6.28 g/dL (6.3-8.2)
[2021-07-29] MEDS: PHENERGAN TAB PO PRN (07:36)
[2021-07-29] MEDS: ULTRAM PO PRN ×2 (07:36→12:59)
[2021-07-29] MEDS: MULTIVITAMIN TABLET PO SCH (10:28)
[2021-07-29] MEDS: CELEXA PO SCH (10:29)
[2021-07-29] MEDS: K-DUR PO SCH ×3 (10:30→16:22)
[2021-07-29] MEDS: CLARITIN PO SCH (10:30)
[2021-07-29] MEDS: FLORASTOR PO SCH ×2 (10:30→21:23)
--- NOTE | 2021-07-29 10:39 | PCM.PROG ---
Attending Provider: ATTENDING PROVIDER: Dr. FAISAL ALVARADO DATE OF SERVICE: 07/29/21 SUBJECTIVE: This 76 year old /WHITE F was hospitalized 07/25/21 with acute gastritis, dehydration and weakness. The patient's condition has improved. She looks better. She has been up and about still with some diarrhea. No abdominal pain. REVIEW OF SYSTEMS: CONSTITUTIONAL: No night sweats. No fatigue, malaise, lethargy. No fever or chills. HEENT: Eyes: No visual changes. No eye pain. No eye discharge. ENT: No runny nose. No epistaxis. No sinus pain. No odynophagia. No congestion. RESPIRATORY: No cough, no congestion. No hemoptysis. No shortness of breath. CARDIOVASCULAR: No angina symptoms. No CHF symptoms. No atypical chest pain for CAD. No palpitations. No orthopnea.. GASTROINTESTINAL: No abdominal pain. No nausea or vomiting. No diarrhea or constipation. No hematemesis. No hematochezia. GENITOURINARY: No urgency. No frequency. No dysuria. No hematuria. No obstructive symptoms. No discharge. No pain. No significant abnormal bleeding. MUSCULOSKELETAL: No musculoskeletal pain; no joint swelling. NEUROLOGICAL: Awake, alert, oriented to time, place and person. No headache. No neck pain. No syncope. No seizures. No dizziness. PSYCHIATRIC: Not anxious. No depression. No suicidal thoughts. No homicidal thoughts. SKIN: No rash. No lesions. No wounds. ENDOCRINE: No unexplained weight loss. No weight gain. HEMATOLOGIC/LYMPHATIC: No anemia. No purpura. No petechiae. No prolonged or excessive bleeding. No palpable lymph nodes. PHYSICAL EXAMINATION: GENERAL: The patient is awake, alert and oriented, lying in bed in no distress. VITAL SIGNS: Temperature 97.5 F, Pulse 55, Respiratory Rate 18, BP 133/77, Pulse Ox 97% HEENT: Head normocephalic, atraumatic. Eyes: Extraocular muscles are intact. Pupils are equal, round and reactive to light and accommodation. Ears: No lesions. Nose appeared normal. Throat: No exudate or erythema. NECK: Supple. No JVD, no carotid bruit. No lymphadenopathy or thyromegaly. LUNGS: Clear to auscultation. Percussion note normal. Chest symmetrical. HEART: S1, S2, no S3. No murmurs. No cyanosis or clubbing. No ascites. Pulses: Dorsalis pedis and posterior tibial pulses +1 to +2 both sides. ABDOMEN: Soft. Non-tender. Bowel sounds active. No CVA tenderness. No mass felt. EXTREMITIES: No edema. Full range of motion of all extremities, equal. NEUROLOGIC: No focal deficit. Cranial nerves II through XII are grossly intact. No headache, no double vision or headache. SKIN: Warm and dry. Intact. Turgor-normal. LYMPHATIC: No palpable lymph nodes/no lymphedema. MUSCULOSKELETAL: Normal joints with no swelling. Muscle tone is normal. LAB REVIEW: 07/29/21 05:46 07/29/21 05:46 07/29/21 05:46: Sodium 137.5, Potassium 4.07, Chloride 105.4, Carbon Dioxide 25.4, Anion Gap 10.77, BUN 4.6 L, Creatinine 0.81, Estimated GFR (MDRD) 69.00, BUN/Creatinine Ratio 5.67, Glucose 97.2, Calcium 9.01, Total Bilirubin 0.41, AST 63.4 H, ALT 58.0 H, Alkaline Phosphatase 44.8 L, Total Protein 6.28 L, Albumin 3.61, Globulin 2.67, Albumin/Globulin Ratio 1.35 07/29/21 05:46: WBC 4.01 L, RBC 3.43 L, Hgb 11.1 L, Hct 32.8 L, MCV 95.6, MCH 32.4 H, MCHC 33.8, RDW Coeff of Dimas 12.6, Plt Count 158, Immature Gran % (Auto) 0.2, Neut % (Auto) 54.8, Lymph % (Auto) 30.4, [place] % (Auto) 11.2 H, Eos % (Auto) 2.7, Baso % (Auto) 0.7, Neut # (Auto) 2.2, Lymph # (Auto) 1.2, [place] # (Auto) 0.5, Eos # (Auto) 0.1, Baso # (Auto) 0.0, Immature Gran # (Auto) 0.0 ASSESSMENT: Please see below. 1. Acute gastritis, seems resolved 2. Dehydration, seems resolved 3. Weakness, seems resolved 4. Diarrhea still persists to some extent. PLAN: 1. Keep in hospital. She is to be up and about 2. Flagyl 250mg PO TID 3. Discontinue Telemetry Plan and coordination of the patient's care discussed in the presence of Burr Machine Operator and nurse. CONDITION: Stable SCRIBED BY: Víctor MEZA scribed while in presence of service performed by Dr. FAISAL ALVARADO on 07/29/21 ([id number])
[2021-07-29] MEDS: NON-FORMULARY MEDICATION (Mesalamine 1.2 gram Tablet,Delayed Release (Dr/Ec)) PO SCH (11:25)
[2021-07-29] MEDS: TIMOPTIC 0.5% OPTH EACHEYE SCH ×2 (11:25→21:24)
[2021-07-29] MEDS: FLAGYL PO SCH ×2 (13:06→21:23)
--- NOTE | 2021-07-29 13:37 | PN ---
DATE OF SERVICE: 07/28/2021 SUBJECTIVE: The patient was seen and examined with the Nurse Practitioner. Condition is improving. She is tolerating food very well. Practically no abdominal pain. No fever and no chilld. Hydration status has improved. TIME SPENT: More than 30 minutes. Plan and coordination of the patient's care discussed in the presence of nurse. MOISES
[2021-07-29] MEDS: [UNRECOGNIZED DRUG - OTHER] PO SCH (21:24)
[2021-07-29] MEDS: PROPRANOLOL 160 MG PO SCH (21:24)
[2021-07-30 05:59] LABS: BASOPHILS % (AUTO) 0.7 % (0.0-3.0); EOSINOPHILS # (AUTO) 0.1 K/ul (0.0-0.7); HEMATOCRIT 32.7 % (37.0-47.0); IMMATURE GRANULOCYTE % (AUTO) 0.5 % (0.0-5.0); LYMPHOCYTES # (AUTO) 1.2 K/uL (0.60-3.4); LYMPHOCYTES % (AUTO) 28.5 (10.0-50.0); MEAN CORPUSCULAR HEMOGLOBIN 31.7 pg (27.0-31.0); MEAN CORPUSCULAR HGB CONC 33.6 (31.8-35.4); MEAN CORPUSCULAR VOLUME 94.2 fl (81.0-99.0); MONOCYTES # (AUTO) 0.4 K/uL (0.4-2.0); MONOCYTES % (AUTO) 10.6 (0-10); NEUTROPHILS # (AUTO) 2.3 K/ul (2.0-6.9); NEUTROPHILS % (AUTO) 57.7 % (42.2-75.2); PLATELET COUNT 146 10^3/uL (140-440); RED BLOOD COUNT 3.47 10^6/ul (4.20-5.40); WHITE BLOOD COUNT 4.04 K/ul (4.6-10.2)
[2021-07-30 06:02] VITALS: BP 131/70; TEMP 98.9
[2021-07-30] MEDS: PROTONIX PO SCH (06:03)
[2021-07-30] MEDS: CIPRO PO SCH (06:03)
[2021-07-30] MEDS: FLAGYL PO SCH (06:04)
[2021-07-30 06:12] LABS: ALANINE AMINOTRANSFERASE 47.3 U/L (0-35); ALBUMIN 3.59 g/dL (3.5-5.0); ALKALINE PHOSPHATASE 43.7 U/L (53-141); ASPARTATE AMINO TRANSFERASE 44.5 U/L (14-36); BILIRUBIN,TOTAL 0.43 mg/dL (0.2-1.3); CALCIUM 8.93 mg/dL (8.4-10.2); CARBON DIOXIDE 23.6 mmol/L (22-30.0); CHLORIDE 106.8 mmol/L (98-107); CREATININE 0.79 mg/dL (0.60-1.30); SODIUM 137.2 mmol/L (134.5-145); TOTAL PROTEIN 6.18 g/dL (6.3-8.2)
[2021-07-30] MEDS: ULTRAM PO PRN ×2 (07:09→11:31)
[2021-07-30] MEDS: MULTIVITAMIN TABLET PO SCH (08:59)
[2021-07-30] MEDS: FLORASTOR PO SCH (08:59)
[2021-07-30] MEDS: CELEXA PO SCH (08:59)
[2021-07-30] MEDS: K-DUR PO SCH ×2 (08:59→11:31)
[2021-07-30] MEDS: CLARITIN PO SCH (09:00)
[2021-07-30] MEDS: TIMOPTIC 0.5% OPTH EACHEYE SCH (09:00)
[2021-07-30] MEDS: NON-FORMULARY MEDICATION (Mesalamine 1.2 gram Tablet,Delayed Release (Dr/Ec)) PO SCH (09:00)
--- NOTE | 2021-08-02 10:34 | PN ---
DATE OF SERVICE: 07/30/2021 SUBJECTIVE: 76 year old white female hospitalized with acute gastritis, possibly diverticulitis, dehydration and weakness. Condition has improved remarkable. She is feeling alot better and wants to go home. REVIEW OF SYSTEMS: CONSTITUTIONAL: No night sweats. No fatigue, malaise, lethargy. No fever or chills. HEENT: Eyes: No visual changes. No eye pain. No eye discharge. ENT: No runny nose. No epistaxis. No sinus pain. No sore throat. No odynophagia. No congestion. RESPIRATORY: No cough, no congestion. No hemoptysis. No shortness of breath. CARDIOVASCULAR: No angina symptoms. No CHF symptoms. No atypical chest pain for CAD. No palpitations. No PND. No orthopnea. GASTROINTESTINAL: No abdominal pain. No nausea or vomiting. No diarrhea or constipation. No hematemesis. No hematochezia. GENITOURINARY: No urgency. No frequency. No dysuria. No hematuria. No obstructive symptoms. No discharge. No pain. No significant abnormal bleeding. MUSCULOSKELETAL: No musculoskeletal pain; no joint swelling. NEUROLOGICAL: No headache. No neck pain. No syncope. No seizures. No dizziness. PSYCHIATRIC: Not anxious. No depression. No suicidal thoughts. No homicidal thoughts. SKIN: No rash. No lesions. No wounds. ENDOCRINE: No unexplained weight loss. No weight gain. HEMATOLOGIC/LYMPHATIC: No anemia. No purpura. No petechiae. No prolonged or excessive bleeding. No palpable lymph nodes. PHYSICAL EXAMINATION: VITAL SIGNS: Temperature 98.9, pulse 58, respiratory rate 16, blood pressure 130/70 and pulse ox 98% on room air. HEENT: Head normocephalic, atraumatic. Eyes: Extraocular muscles are intact. Pupils are equal, round and reactive to light and accommodation. Ears: No lesions. Nose appeared normal. Throat: No exudate or erythema. NECK: Supple. No JVD, no carotid bruit. No lymphadenopathy or thyromegaly. LUNGS: Clear to auscultation. Percussion note normal. Chest symmetrical. HEART: S1, S2, no S3. No murmurs. No cyanosis or clubbing. No ascites. Pulses: Dorsalis pedis and posterior tibial pulses +1 to +2 bilaterally. ABDOMEN: Soft. Nontender. Bowel sounds active. No CVA tenderness. No mass felt. EXTREMITIES: No edema. Full range of motion of all extremities, equal. NEUROLOGIC: No focal deficit. Cranial nerves II through XII are grossly intact. No headache. No double vision. SKIN: Not dry. Intact. Turgor - normal. LYMPHATIC: No palpable lymph nodes/no lymphedema. MUSCULOSKELETAL: Normal joints with no swelling. Muscle tone is normal. LABS: Hgb 11, hct 32, WBC 4,000 normal differential, creatinine 0.7, BUN 9, potassium 4 ASSESSMENT: 1. Acute gastritis, resolved 2. Diverticulitis, resolved 3. Dehydration, resolved PLAN: 1. The patient is going to be discharged home. The patient's sister has come from [place]. She will come to the hospital and pick her up. 2. Discharge on [place] [place] 3. Instruction to come back in 5-7 days. TIME SPENT: More than 30 minutes. Plan and coordination of the patient's care discussed in the presence of nurse. MOISES
--- NOTE | 2021-08-02 11:01 | DS ---
DATE OF SERVICE: 07/30/2021 FINAL DIAGNOSIS: 1. Acute gastritis 2. Dehydration 3. Generalized weakness 4. Possible diverticulitis 5. Chronic anemia 6. Diverticulosis of colon 7. Dyslipidemia 8. Hypertension 9. Generalized osteoarthritis 10. Gastroesophageal reflux disease DISCHARGE INSTRUCTIONS: Discharge home. Continue all the medications that the patient was on. Come back in 5-7 days. MEDICATIONS AT DISCHARGE: Citalopram Lorazepam Propranolol Simvastatin Imitrex for migraine Loratadine Tramadol Hydrochlorothiazide Losartan Clonidine Timolol eye drops Pantoprazole Zanaflex NEW PRESCRIPTIONS: Flagyl 250mg TID for 5 days Cipro 250mg BID for 5 days DIET INSTRUCTIONS: Advised to avoid milk products for a couple of days. Diverticulosis diet discussed ACTIVITY: As tolerated LABS: Hgb 11, hct 32, WBC 4,000 normal differential, creatinine 0.7, BUN 9, potassium 4 HOSPITAL COURSE: 76 year old white female hospitalized with acute gastritis, dehydration and possibility of diverticulitis and weakness. She was given IV fluids and IV antibiotics Flagyl and Cipro. Condition after 48 hours seems to have improved. At the time of discharge was up and about eating normally with normal bowel movements. Her sister had come from [place] to take care of her at home. She is ready to go home. Up and about with normal appetite and bowel. Condition at the time of discharge is stable. Her hydration status had improved. Normal skin turgor. CONDITION: Stable. TIME SPENT: More than 60 minutes. MTDD
--- NOTE | 2021-08-02 11:03 | PN ---
07/25/2021: Level 5 07/26/2021: Intermediate 07/27/2021: Intermediate 07/28/2021: Intermediate 07/29/2021: Intermediate 07/30/2021: D as in discharge MTDD
== END 2021-07-30 13:13 | disposition home or self-care (01) | DRG 392 ==
LOC: LAB 09:57 → MEDSURG A 11:30
PROVIDERS: ADMIT Internal Medicine; ATTEND Internal Medicine
DX: K29.00 Acute gastritis without bleeding; Z20.822 Contact with and (suspected) exposure to COVID-19; I10 Essential (primary) hypertension; E86.0 Dehydration; K57.92 Diverticulitis of intestine, part unspecified, without perforation or abscess without bleeding; M41.9 Scoliosis, unspecified; I95.1 Orthostatic hypotension; I50.22 Chronic systolic (congestive) heart failure; F33.9 Major depressive disorder, recurrent, unspecified; M62.81 Muscle weakness (generalized)

== ENCOUNTER 2025-07-08 08:31 | Observation (INO) ==
--- NOTE | 2025-07-08 09:07 | ED.PDOC ---
General HPI ED Provider: Dr. LUNA COLLIER MD Chief Complaint: Weakness Stated Complaint: Pt presents with generalized weakness. States it has been present for past 8-9 weeks, but much worse today. States she feels SOB and that is worse today as well. Denies chest pain. No known fever, chills, or cough. Has had some persistent nasal congestion and reports mild headache. Denies abdominal pain, nausea, vomiting or diarrhea. Denies leg swelling. Reports some urinary frequency but denies dysuria. She had labs done by PCP 2 days ago that showed hypokalemia and was started on potassium 20mEq tid. Denies any cardiac or pulmonary history. Time Seen by Provider: 07/08/25 08:36 Mode of Arrival: Walk-In Information Source: Patient and Family Exam Limitations: No limitations Primary Care Provider: MANDO WAHL APRN Nursing and Triage Documentation Reviewed and Agree: Yes Opioid Naive vs. Tolerant What is Opioid Naive?: *Opioid Naive implies the patient is not already taking opioids or not chronically receiving opioids on a daily basis. *PRN dosing is not "usually" associated with tolerance. *Patients are at higher risk of over-sedation and aspiration. What is Opioid Tolerant?: *Opioid Tolerance implies less than the expected response to an opioid. *Acquired tolerance is defined by the patient taking 60mg of oral morphine daily (or equianalgesic dose of another opioid) for 1 week or more. *Often associated with chronic pain. *May take more than usual dose to achieve desired pain control. Review of Systems Review Of Systems Constitutional: Reports No symptoms PFSH PFS Medical History Diverticulitis recurrent K57.92 - Diverticulitis of intestine, part unspecified, without perforation or abscess without bleeding (ICD-10) Kidney injury S37.009A - Unspecified injury of unspecified kidney, initial encounter (ICD- 10) COVID-19 03/05 U07.1 - COVID-19 (ICD-10) Syncope and collapse R55 - Syncope and collapse (ICD-10) Abdominal pain R10.9 - UNSPECIFIED ABDOMINAL PAIN (ICD-10) Acute diverticulitis K57.92 - DVTRCLI OF INTEST, PART UNSP, W/O PERF OR ABSCESS W/O BLEED (ICD- 10) Family History FATHER Lung cancer BROTHER FH: kidney cancer Diabetes Mother Stroke Social History Smoking and tobacco status: Never smoker Alcohol intake: never Substance use type: does not use Jenn/jehovah's witness: Prespy. Special jenn needs: No Agree to transfusion: Yes Adopted: No Caregiver/support person: No Foster care: No Household members: none Housing: house Lives independently: Yes Daycare: no daycare Number of children: 4 Highest education level completed: Associate degree: academic program Financial difficulty paying for basics: not very hard service: No detention: No History of recent travel: No Sexually active: No Do you think of yourself as: straight/heterosexual Current gender identity: female Seatbelt use: always Drives intoxicated or rides with intoxicated airport shuttle driver: No Current diet type/program: other Well-balanced diet: daily Caffeine: Yes Eating out: rarely or never Reads food labels: seldom or never Water heater temperature set < 120 degrees: Yes Working smoke detector in home: Yes Fire extinguisher in home: Yes Carbon monoxide detector in home: Yes Firearms in home: No What type of physical activity do you participate in?: walking Physical activity functional status: independent ambulation Surgical History Hx of shoulder replacement left Z96.619 - Presence of unspecified artificial shoulder joint (ICD-10) Female Reproductive History Menstrual Hx Hysterectomy: No Hx Tubal Ligation: No Physical Exam Physical Exam Appearance: Reports Well-appearing and Well-nourished Ill-appearing: None Pain Distress: None Eyes: Reports Conjunctiva clear ENT: Reports Nose normal Neck: Supple Respiratory: Reports Airway patent, Breath sounds clear and Breath sounds equal; Denies Respirations nonlabored (mild tachypnea.) Cardiovascular: Reports RRR and Pulses normal GI/: Reports Soft and Nontender Musculoskeletal: Reports Normal strength Skin: Reports Warm and Dry Neurological: Reports Alert and Oriented; Denies Focal Deficit Psychiatric: Reports Affect appropriate Interpretation EKG Interpretation EKG Interpretation By: ED Physician Time of EKG #1: 09:14 Rate: Normal Rhythm: Sinus Ectopy: None Interpretation: nonspecific ST and T wave abnormality. No significant change Radiology Interpretation Radiology Interpretation By: ED Physician Radiology Results: Negative Exam Interpreted: CXR Re-Evaluation Re-Evaluation Additional Comments: Discussed lab, EKG and CXR results with patient. She has improved potassium on labs, mild hyponatremia, normal renal function, normal white count. Her EKG is unchanged, troponin is negative and BNP only very mildly elevated. CXR is clear with no evidence of PNA or pulmonary edema or other acute findings. Her urinalysis does not show evidence of infection. She is hypertensive here, and states she does not check her BP at home and does not know what it normally runs. She does state she took her BP meds this morning. She tells me she is too weak and feels too bad to go home and would like to be admitted. I spoke with Fred Astorga, hospitalist DIRECTOR OF DIGITAL PLATFORMS, who has agreed to see her for admission. Physician Notification Case Discussed Physician Notified: Fred Astorga NP Course Course 07/08/25 09:15 07/08/25 09:15 Orders, Labs, Meds: Lab Review 07/08/25 07/08/25 09:15 09:28 WBC 7.69 RBC 4.29 Hgb 14.1 Hct 39.8 MCV 92.8 MCH 32.9 H MCHC 35.4 RDW Coeff of Dimas 13.0 Plt Count 202 Immature Gran % (Auto) 0.3 Neut % (Auto) 64.5 Lymph % (Auto) 25.9 [place] % (Auto) 6.9 Eos % (Auto) 2.1 Baso % (Auto) 0.3 Neut # (Auto) 5.0 Lymph # (Auto) 2.0 [place] # (Auto) 0.5 Eos # (Auto) 0.2 Baso # (Auto) 0.0 Immature Gran # (Auto) 0.0 Sodium 132.5 L Potassium 3.95 Chloride 101.9 Carbon Dioxide 22.4 Anion Gap 12.15 BUN 12.2 Creatinine 0.65 Estimated GFR (MDRD) 88.00 BUN/Creatinine Ratio 18.76 Glucose 112.8 H Calcium 9.58 Magnesium 1.94 Total Bilirubin 1.23 AST 33.0 ALT 20.9 Alkaline Phosphatase 59.6 Troponin I < 0.012 NT-Pro-B Natriuret Pep 347 H Total Protein 6.93 Albumin 4.19 Globulin 2.74 Albumin/Globulin Ratio 1.52 Urine Color Yellow Urine Clarity Clear Urine pH 8.5 Ur Specific [place] 1.015 Urine Protein Negative Urine Glucose (UA) Negative Urine Ketones Negative Urine Blood Trace-intact H Urine Nitrite Negative Urine Bilirubin Negative Urine Urobilinogen 0.2 Ur Leukocyte Esterase Negative Urine Microscopic RBC 2-5 Ur Squamous Epith Cells Not Reportable Orders Category Date Time Status EKG-(ED & IP/OBS ONLY) Stat CARDIO 07/08/25 09:02 Completed PULSE OX [CONTINUOUS PULSE OX (NURSING)] PULSEOX CARE 07/08/25 09:03 Active Account Technician [ED MATHS TUTOR APPLIED] .ONCE EMERGENCY 07/08/25 09:03 Active IV [ED IV/MEDIPORT/POWERPORT] .ONCE EMERGENCY 07/08/25 09:03 Active CBC W/ AUTO DIFF Stat LAB 07/08/25 09:15 Completed CMP [COMPREHENSIVE METABOLIC PANEL] Stat LAB 07/08/25 09:15 Completed MAGNESIUM Stat LAB 07/08/25 09:15 Completed NT-PROBNP(ED) Stat LAB 07/08/25 09:15 Completed TROPONIN I Stat LAB 07/08/25 09:15 Completed URINALYSIS C & S IF INDICATED Stat LAB 07/08/25 09:28 Completed 0.9 % Sodium Chloride [Saline Flush] Meds 07/08/25 09:02 Active 1 syr IVF PRN PRN CXR [CHEST, 1V AP ONLY] Stat RADS 07/08/25 09:03 Completed Medications Generic Name Dose Route Start Last Admin Trade Name Freq PRN Reason Stop Dose Admin Sodium Chloride 1 syr 07/08/25 09:02 0.9% Sodium Chloride 10 Ml Disp.Syrin IVF PRN PRN To flush IV Vital Signs: Temp Pulse Resp BP Pulse Ox 07/08/25 08:39 98.7 F 61 22 H 184/101 H 99 Discharge Plan Discharge Patient Disposition: PLACED OBSERVATION Discharge Problem: Generalized weakness Hypertension Qualifiers: Hypertension type: essential hypertension Qualified Code(s): I10 - Essential (primary) hypertension Did you review [place] TOP LIFT COMPRESSER for ALL controlled substances?: Not Applicable ED Provider: LUNA COLLIER Condition: Stable
[2025-07-08 09:19] LABS: IMMATURE GRANULOCYTE # (AUTO) 0.0 (0.0-1.0); IMMATURE GRANULOCYTE % (AUTO) 0.3 % (0.0-5.0); RDW COEFFICIENT OF VARIATION 13.0 % (11.6-14.8)
[2025-07-08 09:31] LABS: CREATININE 0.65 mg/dL (0.60-1.30)
--- NOTE | 2025-07-08 09:43 | DI ---
EXAM: CHEST RADIOGRAPH TECHNIQUE: Single frontal chest radiograph. HISTORY: Shortness of breath. COMPARISON: 06/22/25 FINDINGS: There is emphysema with right upper lobe calcified granulomas. No pneumonia or effusion. Left shoulder arthroplasty. The heart size is normal. Tortuous atherosclerotic aorta. IMPRESSION: 1. No acute disease.
[2025-07-08 10:03] LABS: GLUCOSE, URINE (UA) Negative (NEGATIVE); LEUKOCYTE ESTERASE ,URINE Negative (NEGATIVE); URINE, BLOOD Trace-intact (NEGATIVE)
[2025-07-08] MEDS ORDERED: ZOFRAN SDV IVP PRN (12:20)
[2025-07-08] MEDS ORDERED: TYLENOL PO PRN (12:20)
[2025-07-08] MEDS ORDERED: HYDRALAZINE HCL IVP PRN (13:14)
[2025-07-08 14:00] LABS: % IRON SATURATION 42.0 %
[2025-07-08 14:11] VITALS: BMI 22.9
--- NOTE | 2025-07-08 14:12 | PCM ---
Date of Service Date Seen by Provider: 07/08/25 Time Seen by Provider: 12:45 Admit Day/Time Admission Date: 07/08/25 Admission Time: 11:00 Reason for Admission Chief Complaint: GENERALIZED WEAKNESS, HYPERTENSION Hospital Provider Hospital Provider: GERBER MAKI, [facility] Primary Care Physician Primary Care Physician: MANDO WAHL APRN History of Present Illness History of Present Illness: 80 yo female with pmh of diverticulitis, HTN, HLD, and GERD presented to the ER after 1 previous ER visit and 2 dr office visits for ongoing weakness. States that this all started approximately 8 weeks ago and has worsened in the last week. Had congestion and shortness of breath at Drs office. Had labs completed and had some mild hypokalemia. Started potassium replacement and was also prescr ibed doxycycline and prednisone. States she remembers taking the prednisone but does not recall the doxycycline. [place] and had turkey mites a couple weeks ago as well. Denies any tick bites that she is aware of. In ER today, SBP was found to be in the 180s. Sodium mildly low at 133. BNP in 300s. Denies any swelling to hands, feet, or abdomen. Denies any history of heart failure. Denies chest pain, fever, palpitations, nausea, vomiting, diarrhea, vision changes, headaches. Does report loss of appetite. Upon review, patient has lost 13 lbs since March of this year. Admitted to med/surg observation. Case Discussed With Case Discussed With: Patient's case was discussed with the ER Physicians, Dr. Chow. [facility] Medical History Diverticulitis recurrent K57.92 - Diverticulitis of intestine, part unspecified, without perforation or abscess without bleeding (ICD-10) Kidney injury S37.009A - Unspecified injury of unspecified kidney, initial encounter (ICD-10) COVID-19 03/05 U07.1 - COVID-19 (ICD-10) Syncope and collapse R55 - Syncope and collapse (ICD-10) Abdominal pain R10.9 - UNSPECIFIED ABDOMINAL PAIN (ICD-10) Acute diverticulitis K57.92 - DVTRCLI OF INTEST, PART UNSP, W/O PERF OR ABSCESS W/O BLEED (ICD- 10) Surgical History Hx of shoulder replacement left Z96.619 - Presence of unspecified artificial shoulder joint (ICD-10) Family History FATHER Lung cancer BROTHER FH: kidney cancer Diabetes Mother Stroke Social History Smoking and tobacco status: Never smoker Alcohol intake: never Substance use type: does not use Jenn/pentecostal: Prespy. 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 Current diet type/program: other Well-balanced diet: daily Caffeine: Yes Eating out: rarely or never Reads food labels: seldom or never Water heater temperature set < 120 degrees: Yes Working smoke detector in home: Yes Fire extinguisher in home: Yes Carbon monoxide detector in home: Yes Firearms in home: No What type of physical activity do you participate in?: walking Physical activity functional status: independent ambulation Allergies Allergies Allergy/AdvReac Type Severity Reaction Status Date / Time Latex, Natural Rubber AdvReac Unknown Verified 07/08/25 08:54 Current Medications Home Medications Acetaminophen (Acetaminophen 325 Mg Tablet) 650 mg PO Q4H PRN PRN Reason: Mild Pain Enoxaparin Sodium (Enoxaparin Sodium 40 Mg/0.4 Ml Syr) 40 mg SUBCUT DAILY BRANDON Hydralazine HCl (Hydralazine Hcl 20 Mg/Ml Sdv) 10 mg IVP Q6H PRN PRN Reason: Hypertension Ondansetron HCl (Ondansetron Hcl/Pf 4 Mg/2 Ml Sdv) 4 mg IVP Q6H PRN PRN Reason: Nausea / Vomiting Sodium Chloride (0.9% Sodium Chloride 10 Ml Disp.Syrin) 1 syr IVF PRN PRN PRN Reason: To flush IV timolol 0.5 % eye drops 1 drp BOTHEYES BID 08/29/20 [History Confirmed 07/06/25] azelastine 137 mcg (0.1 %) nasal spray 137 mcg (0.137 mL) intranasal BID #30 mL 11/19/23 [Rx Confirmed 07/06/25] simvastatin 40 mg tablet 40 mg PO BEDTIME #90 tabs 07/23/24 [Rx Confirmed 07/06/25] hydrochlorothiazide 12.5 mg capsule 12.5 mg PO DAILY #90 caps 08/13/24 [Rx Confirmed 07/06/25] montelukast 10 mg tablet 10 mg PO DAILY #30 tabs 12/29/24 [Rx Confirmed 07/06/25] potassium chloride 20 mEq tablet,extended release 20 meq PO QDAY #90 tabs 12/31/24 [Rx Confirmed 07/06/25] loratadine 10 mg tablet (Claritin) 10 mg PO QDAY 04/06/25 [History Confirmed 07/06/25] hyoscyamine sulfate 0.125 mg sublingual tablet 0.125 mg sublingual Q4H PRN for indigestion #12 tabs 04/09/25 [Rx Confirmed 07/06/25] oxybutynin chloride 5 mg tablet,extended release 24 hr 5 mg PO QDAY #30 tabs 05/04/25 [Rx Confirmed 07/06/25] losartan 50 mg tablet 50 mg PO DAILY #90 tabs 05/05/25 [Rx Confirmed 07/06/25] propranolol 160 mg capsule,24 hr,extended release 160 mg PO DAILY #90 caps 05/12/25 [Rx Confirmed 07/06/25] meloxicam 7.5 mg tablet 7.5 mg PO QDAY #20 tabs 06/16/25 [Rx Confirmed 07/06/25] trazodone 50 mg tablet 50 mg PO BEDTIME PRN for insomnia #30 tabs 06/16/25 [Rx Confirmed 07/06/25] pantoprazole 40 mg tablet,delayed release 40 mg PO 2XD #180 tabs 06/18/25 [Rx Confirmed 07/06/25] ondansetron 4 mg disintegrating tablet 4 mg PO Q6H PRN nausea and vomiting #10 tabs 06/22/25 [Rx Confirmed 07/06/25] tramadol 50 mg tablet 50 mg PO QID PRN Pain #360 tabs 06/22/25 [Rx Confirmed 07/06/25] fluticasone propionate 50 mcg/actuation nasal spray,suspension 2 spray intranasal QDAY PRN nasal congestion #16 grams 06/30/25 [Rx Confirmed 07/06/25] potassium chloride 20 mEq tablet,extended release 20 meq PO TID 3 days #9 tabs 07/06/25 [Rx] Opioid Naive vs. Tolerant Does Patient Take Opioids?: No Is Patient Opioid Naive?: Yes What is Opioid Naive?: *Opioid Naive implies the patient is not already taking opioids or not chronical ly receiving opioids on a daily basis. *PRN dosing is not "usually" associated with tolerance. *Patients are at higher risk of over-sedation and aspiration. Is Patient Opioid Tolerant?: No What is Opioid Tolerant?: *Opioid Tolerance implies less than the expected response to an opioid. *Acquired tolerance is defined by the patient taking 60mg of oral morphine daily (or equianalgesic dose of another opioid) for 1 week or more. *Often associated with chronic pain. *May take more than usual dose to achieve desired pain control. Review of Systems Constitutional: Reports Recent Weight Loss (13 lbs since March), Weakness and Loss of appetite; Denies Fever Head: Reports Normocephalic Eyes: Reports No symptoms Ears: Reports No symptoms Nose: Reports No symptoms Mouth: Reports No symptoms Throat: Reports No symptoms Cardiovascular: Reports No symptoms; Denies Chest pain, Edema or Palpitations Respiratory: Reports Shortness of air; Denies Cough Gastrointestinal: Reports Black Tarry Stools (the last 3-4 days); Denies Nausea, Vomiting or Diarrhea Genitourinary: Reports No Symptoms; Denies Dysuria, Frequency or Incontinence Musculoskeletal: Reports No symptoms Endocrine: Reports No symptoms Hematology: Reports No symptoms Immunology: Reports No symptoms Neurological: Reports No symptoms Psychiatric: Reports No symptoms Physical examination Most Recent Vital Signs: Most Recent Vital Signs Temperature 97.9 F 07/08/25 13:58 Temperature Source Temporal Artery Scan 07/08/25 13:58 Temperature Source Temporal Artery Scan 07/08/25 08:39 Pulse Rate 64 07/08/25 13:58 Respiratory Rate 20 07/08/25 13:58 Blood Pressure 150/87 H 07/08/25 13:58 Blood Pressure Mean 108 07/08/25 13:58 Blood Pressure Right Arm 179/88 07/08/25 12:33 Blood Pressure Location Right Arm 07/08/25 13:58 Blood Pressure Position Supine 07/08/25 13:58 O2 Sat by Pulse Oximetry 99 07/08/25 13:58 Oxygen Delivery Method Room Air 07/08/25 13:58 Height 5 ft 6 in 07/08/25 12:33 Weight 64.6 kg 07/08/25 12:33 Telemetry Heart Rate 51 L 06/22/25 09:17 Appearance: Positive No Apparent Distress and Alert and Oriented x3 Skin: Positive Warm and Good Color HEENT: Positive Normocephalic and PERRLA Neck: Positive Supple and Midline Trachea Chest/Lungs: Positive Symmetrical With Equal Breath Sounds, Clear to Auscultation Bilaterally and Good Air Movement all 4 Lung Smith; Negative Rales, Rhonci or Wheezes Heart: Positive RRR, Pulses Normal, No S3 Auscultated and No S4 Auscultated; Negative Irregular Rhythm GI/: Positive Soft, Nontender, Bowel Sounds Normal, No Distention and No Organomegaly Musculoskeletal: Positive Not Examined Extremities: Positive Edema (trace swelling to LLE, ecchymosis to bottom of L foot), Intact Peripheral Pulses, Stable Joints Without Laxity and Good ROM in All Joints Neurological: Positive Sensation Intact, Motor intact, Reflexes Intact, Alert, Oriented and Other (difficulty finding words, poor recall of information) Labs This Visit Labs This Visit: Labs This Visit 07/08/25 07/08/25 07/08/25 09:15 09:28 13:28 WBC 7.69 RBC 4.29 Hgb 14.1 Hct 39.8 MCV 92.8 MCH 32.9 H MCHC 35.4 RDW Coeff of Dimas 13.0 Plt Count 202 Immature Gran % (Auto) 0.3 Neut % (Auto) 64.5 Lymph % (Auto) 25.9 [place] % (Auto) 6.9 Eos % (Auto) 2.1 Baso % (Auto) 0.3 Neut # (Auto) 5.0 Lymph # (Auto) 2.0 [place] # (Auto) 0.5 Eos # (Auto) 0.2 Baso # (Auto) 0.0 Immature Gran # (Auto) 0.0 Sodium 132.5 L Potassium 3.95 Chloride 101.9 Carbon Dioxide 22.4 Anion Gap 12.15 BUN 12.2 Creatinine 0.65 Estimated GFR (MDRD) 88.00 BUN/Creatinine Ratio 18.76 Glucose 112.8 H Calcium 9.58 Magnesium 1.94 Iron 126.8 TIBC 305 % Saturation 42 Total Bilirubin 1.23 AST 33.0 ALT 20.9 Alkaline Phosphatase 59.6 Troponin I < 0.012 NT-Pro-B Natriuret Pep 347 H Total Protein 6.93 Albumin 4.19 Globulin 2.74 Albumin/Globulin Ratio 1.52 D-Dimer 392.18 Urine Color Yellow Urine Clarity Clear Urine pH 8.5 Ur Specific [place] 1.015 Urine Protein Negative Urine Glucose (UA) Negative Urine Ketones Negative Urine Blood Trace-intact H Urine Nitrite Negative Urine Bilirubin Negative Urine Urobilinogen 0.2 Ur Leukocyte Esterase Negative Urine Microscopic RBC 2-5 Ur Squamous Epith Cells Not Reportable Imaging Imaging: EXAM: CHEST RADIOGRAPH TECHNIQUE: Single frontal chest radiograph. HISTORY: Shortness of breath. COMPARISON: 06/22/25 FINDINGS: There is emphysema with right upper lobe calcified granulomas. No pneumonia or effusion. Left shoulder arthroplasty. The heart size is normal. Tortuous atherosclerotic aorta. IMPRESSION: 1. No acute disease. EKG Interpretation EKG Interpretation: No acute changes per ER provider Review Statement Review Statement: I have independently reviewed and interpreted the labs/EKGs/imaging that were ordered by the ER provider. I have reviewed all outside records that are available currently in our EMR including imaging/notes/labs from previous visits. Plan Plan: 1. Hypertension - uncontrolled in ER, resolved at this time, restart home BP meds, hydralazine ordered Q6H prn for SBP >170 and/or >100 2. Weakness - unknown cause, TSH normal, D-dimer negative, UA and chest x-ray negative, checking iron labs, tick-borne illness, and head CT to rule out other etiologies * upon review of chart patient has hx of suspect endometrial cancer that has not been followed up on since 2022 and could be contributing factor to weakness and weight loss as well as dementia * will rule out other causes at this time 3. HLD - chronic, continue home medications 4. GERD - chronic, continue home medications 5. Dementia - concerns for safety at home alone, will discuss discharge plans with POA - daughter Cheri DVT Prophylaxis: Lovenox Time Spent: Greater than 80 minutes spent with patient, 50% of the time spent with this patient was devoted to counseling and coordination of care. [facility]annin minutes spent discussing advance care planning. Disposition: Spoke with brother Yoshi who has been taking care of her as well as his . States she was diagnosed with mild dementia by Dr. Velma Potter a few years ago and her memory loss and confusion continues to worsen. States the patient has voiced concerns of her confusion and being at home alone. Requested to speak with social worker psychiatric regarding discharge plans. Upon speaking to social worker psychiatric, it was disclosed that the patient's daughter Cheri is POA. Will discuss further plan of care with POA. Admit to: Med/Surg Observation Discussed Plan of Care with Dr. Nikki Potter. Medications Medication Orders: Medications Ordered Category Date Time Status 0.9 % Sodium Chloride [Saline Flush] Meds 07/08/25 09:02 Active 1 syr IVF PRN PRN Acetaminophen [Tylenol] Meds 07/08/25 12:20 Active 650 mg PO Q4H PRN Hydralazine HCl Meds 07/08/25 13:14 Active 10 mg IVP Q6H PRN Ondansetron HCl/Pf [Zofran Sdv] Meds 07/08/25 12:20 Active 4 mg IVP Q6H PRN
[2025-07-08] MEDS ORDERED: LORATADINE 10 MG PO SCH (15:30)
[2025-07-08] MEDS ORDERED: ULTRAM PO PRN (15:30)
[2025-07-08] MEDS ORDERED: FLONASE NAS PRN (15:30)
--- NOTE | 2025-07-08 15:50 | CT ---
EXAM: CT HEAD WITHOUT CONTRAST HISTORY: Confusion COMPARISON: 08/29/2020 TECHNIQUE: Serial axial images of the brain were obtained from the skull base to the vertex without IV contrast. FINDINGS: No acute intracranial hemorrhage. No hydrocephalus. No midline shift. Parenchymal volume loss. Chronic microangiopathy. The calvarium is intact. IMPRESSION: No acute intracranial abnormality. If symptoms persist, consider follow-up MRI brain. All CT scans are performed using dose optimization techniques as appropriate to the performed exam and include at least one of the following: Automated exposure control, adjustment of the mA and/or kV according to size, and the use of iterative reconstruction technique.
[2025-07-08] MEDS ORDERED: ARTIFICIAL TEARS OPTH SOL EACHEYE PRN (16:08)
[2025-07-08] MEDS: PROTONIX PO SCH (17:10)
[2025-07-08] MEDS: K-DUR PO SCH (17:10)
[2025-07-08] MEDS: ZOCOR PO SCH (20:06)
[2025-07-08] MEDS: DESYREL PO PRN (20:07)
[2025-07-08] MEDS: TIMOPTIC 0.5% OPTH EACHEYE SCH (20:11)
[2025-07-08 20:57] VITALS: RESP 16
[2025-07-08] MEDS ORDERED: TIMOLOL 0.5% OP SCH (21:00)
[2025-07-09] MEDS: INDERAL PO SCH (05:14)
[2025-07-09 05:32] LABS: IMMATURE GRANULOCYTE # (AUTO) 0.0 (0.0-1.0); IMMATURE GRANULOCYTE % (AUTO) 0.4 % (0.0-5.0); RDW COEFFICIENT OF VARIATION 13.2 % (11.6-14.8)
[2025-07-09 05:46] LABS: CREATININE 0.75 mg/dL (0.60-1.30)
[2025-07-09] MEDS: HYDROCHLOROTHIAZIDE PO SCH (08:33)
[2025-07-09] MEDS: COZAAR PO SCH (08:34)
[2025-07-09] MEDS: MOBIC PO SCH (08:34)
[2025-07-09] MEDS: DITROPAN XL PO SCH (08:34)
[2025-07-09] MEDS: SINGULAIR PO SCH (08:34)
[2025-07-09] MEDS: CELEXA PO SCH (08:37)
[2025-07-09] MEDS: ZYRTEC PO SCH (08:37)
[2025-07-09] MEDS: LOVENOX SUBCUT SCH (08:38)
[2025-07-09] MEDS ORDERED: PROPRANOLOL 160 MG PO SCH (09:00)
[2025-07-09 09:34] VITALS: BP 148/94; PULSE 66; TEMP 98.1
--- NOTE | 2025-07-09 09:53 | DCSUM ---
Admission Date Admission Date: 07/08/25 Discharge Date Discharge Date: 07/09/25 Admission Diagnosis Admission Diagnosis: 1. Hypertension 2. Weakness Discharge Diagnosis Discharge Diagnosis: 1. Hypertension - Controlled, did not require medication adjustments 2. Weakness - unknown cause, TSH normal, D-dimer negative, UA and chest x-ray negative, iron studies normal, tick-borne illness pending - completed course of doxy recently, and head CT negative for acute findings * upon review of chart patient has hx of suspect endometrial cancer that has not been followed up on since 2022 and could be contributing factor to weakness and weight loss as well as dementia * likely in relation to #5 3. HLD - chronic, stable 4. GERD - chronic, stable 5. Dementia - suspect, refer to neurology for formal diagnosis Hospital Provider Hospital [facility] Primary Care Physician Primary Care Physician: MANDO WAHL APRN Summary of History and Physical Summary of History and Physical: 80 yo female with pmh of diverticulitis, HTN, HLD, and GERD presented to the ER after 1 previous ER visit and 2 dr office visits for ongoing weakness. States that this all started approximately 8 weeks ago and has worsened in the last week. Had congestion and shortness of breath at Drs office. Had labs completed and had some mild hypokalemia. Started potassium replacement and was also prescribed doxycycline and prednisone. States she remembers taking the prednisone but does not recall the doxycycline. [place] and had turkey mites a couple weeks ago as well. Denies any tick bites that she is aware of. In ER today, SBP was found to be in the 180s. Sodium mildly low at 133. BNP in 300s. Denies any swelling to hands, feet, or abdomen. Denies any history of heart failure. Denies chest pain, fever, palpitations, nausea, vomiting, diarrhea, vision changes, headaches. Does report loss of appetite. Upon review, patient has lost 13 lbs since March of this year. Admitted to med/surg observation. Hospital Course Subjective: During stay, BP was well controlled with restarting home medications. Did not require adjustment or prn medication treatment. Appeared euvolemic and did not require diuresis r/t mildly elevated BNP. Patient reports her symptoms of "feeling lousy and losing her mind" "I feel crazy" Also reported ongoing weakness. No obvious cause found. * TSH normal, D-dimer negative, UA and chest x-ray negative, iron studies normal, tick-borne illness labs pending - recently completed course of doxycycline to cover this * Head CT negative * Upon review of chart, patient has hx of suspect endometrial cancer that has not been followed up on since 2022 and could be contributing factor to weakness and weight loss as well as suspect dementia. Discussed extensively with daughter/POA - Cheri that patient does not have an obvious acute medical reason causing her to feel this way other than suspect dementia and possibly untreated endometrial cancer. Stated that patient was visiting her sister and the appointment with diplomatic interpreter was likely forgotten about. Plans to discuss with patient and family goals of care and if they want to purs ue this they will discuss with PCP. POA would like for patient to see neurology due to continued worsening of forgetfulness and for formal diagnosis of dementia or Alzheimer's. Referral to be placed for home health PT for strengthening and also homemaker services. Brother and sister in law live on the same property and closely look after the patient. Discussed that medications should be administered to patient and she should no longer be driving. No changes to current home medications. Follow-up with PCP and will refer to neurology for dementia. Appearance: Pleasant, No Apparent Distress and Alert HEENT: MMM and Supple CVS: No Murmur and No Rubs Abdomen: Soft, Non-Tender and No Distention Respiratory: No Dyspnea Extremities: No Edema Vital Signs: Most Recent Vital Signs Temperature 98.1 F 07/09/25 09:33 Temperature Source Temporal Artery Scan 07/09/25 09:33 Temperature Source Temporal Artery Scan 07/08/25 08:39 Pulse Rate 66 07/09/25 09:33 Respiratory Rate 16 07/09/25 09:33 Blood Pressure 148/94 H 07/09/25 09:33 Blood Pressure Mean 112 07/09/25 09:33 Blood Pressure Right Arm 179/88 07/08/25 12:33 Blood Pressure Location Right Arm 07/09/25 09:33 Blood Pressure Position Supine 07/09/25 09:33 O2 Sat by Pulse Oximetry 98 07/09/25 09:33 Oxygen Delivery Method Room Air 07/09/25 09:33 Height 5 ft 6 in 07/08/25 12:33 Weight 64.6 kg 07/08/25 12:33 Telemetry Heart Rate 51 L 06/22/25 09:17 Imaging: EXAM: CT HEAD WITHOUT CONTRAST HISTORY: Confusion COMPARISON: 08/29/2020 TECHNIQUE: Serial axial images of the brain were obtained from the skull base to the vertex without IV contrast. FINDINGS: No acute intracranial hemorrhage. No hydrocephalus. No midline shift. Parenchymal volume loss. Chronic microangiopathy. The calvarium is intact. IMPRESSION: No acute intracranial abnormality. If symptoms persist, consider follow-up MRI brain. EXAM: CHEST RADIOGRAPH TECHNIQUE: Single frontal chest radiograph. HISTORY: Shortness of breath. COMPARISON: 06/22/25 FINDINGS: There is emphysema with right upper lobe calcified granulomas. No pneumonia or effusion. Left shoulder arthroplasty. The heart size is normal. Tortuous atherosclerotic aorta. IMPRESSION: 1. No acute disease. Lab Results Last 24 Hours: 07/09/25 07/08/25 07/08/25 05:17 13:28 09:28 WBC 7.29 RBC 4.42 Hgb 14.6 Hct 41.9 MCV 94.8 MCH 33.0 H MCHC 34.8 RDW Coeff of [place] 13.2 Plt Count 194 Immature Gran % (Auto) 0.4 Neut % (Auto) 61.7 Lymph % (Auto) 26.3 [place] % (Auto) 8.4 Eos % (Auto) 2.9 Baso % (Auto) 0.3 Neut # (Auto) 4.5 Lymph # (Auto) 1.9 [place] # (Auto) 0.6 Eos # (Auto) 0.2 Baso # (Auto) 0.0 Immature Gran # (Auto) 0.0 Sodium 134.8 Potassium 4.20 Chloride 101.2 Carbon Dioxide 25.9 Anion Gap 11.90 BUN 12.7 Creatinine 0.75 Estimated GFR (MDRD) 75.00 BUN/Creatinine Ratio 16.93 Glucose 113.8 H Calcium 9.43 Iron 126.8 TIBC 305 % Saturation 42 Ferritin 215.00 Total Bilirubin 1.38 H AST 31.3 ALT 20.2 Alkaline Phosphatase 51.4 L Total Protein 7.02 Albumin 4.31 Globulin 2.71 Albumin/Globulin Ratio 1.59 D-Dimer 392.18 Urine Color Yellow Urine Clarity Clear Urine pH 8.5 Ur Specific [place] 1.015 Urine Protein Negative Urine Glucose (UA) Negative Urine Ketones Negative Urine Blood Trace-intact H Urine Nitrite Negative Urine Bilirubin Negative Urine Urobilinogen 0.2 Ur Leukocyte Esterase Negative Urine Microscopic RBC 2-5 Ur Squamous Epith Cells Not Reportable Discharge Instructions Discharge Planning: Discharge Planning > 40 minutes If patient is discharged with left ventricular systolic dysfunction: na Discharged with a beta rocael? [] If no, why not? [] Discharged with an waqar/arb? [] If no, why not? [] Discharge Medications: Medications at Discharge (Home Meds & RX) timolol 0.5 % eye drops 1 drp BOTHEYES BID 08/29/20 azelastine 137 mcg (0.1 %) nasal spray 137 mcg (0.137 mL) intranasal BID #30 mL 11/19/23 simvastatin 40 mg tablet 40 mg PO BEDTIME #90 tabs 07/23/24 hydrochlorothiazide 12.5 mg capsule 12.5 mg PO DAILY #90 caps 08/13/24 montelukast 10 mg tablet 10 mg PO DAILY #30 tabs 12/29/24 loratadine 10 mg tablet (Claritin) 10 mg PO QDAY 04/06/25 hyoscyamine sulfate 0.125 mg sublingual tablet 0.125 mg sublingual Q4H PRN for indigestion #12 tabs 04/09/25 oxybutynin chloride 5 mg tablet,extended release 24 hr 5 mg PO QDAY #30 tabs 05/04/25 losartan 50 mg tablet 50 mg PO DAILY #90 tabs 05/05/25 propranolol 160 mg capsule,24 hr,extended release 160 mg PO DAILY #90 caps 05/12/25 meloxicam 7.5 mg tablet 7.5 mg PO QDAY #20 tabs 06/16/25 trazodone 50 mg tablet 50 mg PO BEDTIME PRN for insomnia #30 tabs 06/16/25 pantoprazole 40 mg tablet,delayed release 40 mg PO 2XD #180 tabs 06/18/25 ondansetron 4 mg disintegrating tablet 4 mg PO Q6H PRN nausea and vomiting #10 tabs 06/22/25 tramadol 50 mg tablet 50 mg PO QID PRN Pain #360 tabs 06/22/25 fluticasone propionate 50 mcg/actuation nasal spray,suspension 2 spray intranasal QDAY PRN nasal congestion #16 grams 06/30/25 potassium chloride 20 mEq tablet,extended release 20 meq PO TID 3 days #9 tabs 07/06/25 azelastine 0.05 % eye drops 1 drp BOTHEYES BID 07/08/25 citalopram 20 mg tablet 20 mg PO DAILY 07/08/25 Discharge Plan Discharge Discharge Orders: Discharge Patient (ONCE); Ordered 07/09/25 Ordered By: CHARITY PHILIP Activity Restrictions/Additional Instructions: Diagnosis: Weakness, Suspected Dementia Diet: Regular Activity as tolerated. Medications: * Stop taking potassium Allow your family to setup your medications for you as prescribed. Do not drive or operate heavy machinery unless released by Neurology. Follow-up with primary care provider as scheduled. Instructions: Dementia (GEN), Weakness (GEN) Patient Disposition: HOME WITH FAMILY CARE Prescriptions: Continued simvastatin 40 mg tablet 40 mg PO BEDTIME Qty: 90 1RF hydrochlorothiazide 12.5 mg capsule 12.5 mg PO DAILY Qty: 90 1RF hyoscyamine sulfate 0.125 mg tablet, sublingual 0.125 mg sublingual Q4H PRN (Reason: for indigestion) Qty: 12 1RF oxybutynin chloride 5 mg tablet extended release 24hr 5 mg PO QDAY Qty: 30 2RF losartan 50 mg tablet 50 mg PO DAILY Qty: 90 1RF propranolol 160 mg capsule,extended release 24 hr 160 mg PO DAILY Qty: 90 1RF meloxicam 7.5 mg tablet 7.5 mg PO QDAY Qty: 20 5RF Rx Instructions: TAKE 1 TABLET 5 DAYS A WEEK WITH FOOD. trazodone 50 mg tablet 50 mg PO BEDTIME PRN (Reason: for insomnia) Qty: 30 2RF pantoprazole 40 mg tablet,delayed release (DR/EC) 40 mg PO 2XD Qty: 180 1RF ondansetron 4 mg tablet,disintegrating 4 mg PO Q6H PRN (Reason: nausea and vomiting) Qty: 10 0RF timolol 0.5 % Drops 1 drp BOTHEYES BID azelastine 0.05 % drops 1 drp BOTHEYES BID citalopram 20 mg tablet 20 mg PO DAILY loratadine [Claritin] 10 mg tablet 10 mg PO QDAY azelastine 137 mcg (0.1 %) aerosol,spray 137 mcg intranasal BID Qty: 30 0RF Rx Instructions: administer into each nostril montelukast 10 mg tablet 10 mg PO DAILY Qty: 30 4RF tramadol 50 mg tablet 50 mg PO QID PRN (Reason: Pain) Qty: 360 0RF fluticasone propionate 50 mcg/actuation spray,suspension 2 spray intranasal QDAY PRN (Reason: nasal congestion) Qty: 16 3RF Rx Instructions: administer into each nostril Discontinued potassium chloride 20 mEq tablet extended release 20 meq PO TID 3 Days Qty: 9 0RF Did you review [place] PROPAGATOR for ALL controlled substances?: No Discussed opioids are addictive and Narcan is available by prescription or from pharmacy.: No Condition: Stable Referrals: MANDO WAHL APRN [Primary Care Provider, INTERNAL MEDICINE] - 07/14/25 1:00 pm
[2025-07-10 22:24] LABS: ROCKY MTN SPOTTED FEVER, IgG Negative (Neg:<1:64)
== END 2025-07-09 12:15 | disposition home or self-care (01) ==
LOC: MEDSURG B 08:31 → ED 08:31 → MEDSURG B 12:30
PROVIDERS: ADMIT Hospitalist; ATTEND Nurse Practitioner Family